=== PATIENT | female | born 1960 | race Caucasian/White ===

== ENCOUNTER 2016-09-25 12:52 | Emergency (ER) | payer OTHER ==
[~2016-09-25] VITALS: Ht 165.1 cm; Wt 62.0 kg
[~2016-09-25 12:52] MED LIST: CALCTAB5 PO; CHOL20005 PO; CIPR-255 PO; CITA10TA4 PO; CLON1TAB3 PO; ESOM20CA PO; GLUCTAB18 PO; MULT-506 PO; NAPR1TAB22 PO; ZIPR1CAP8 PO
[2016-09-25 12:57] VITALS: TEMP 37; Ht 165.1 cm; Wt 62.0 kg
[2016-09-25] MEDS ORDERED: DOXE25CA2 PO (13:41)
[2016-09-25] MEDS ORDERED: CALC-393 PO (13:41)
[2016-09-25 14:51] LABS: URINE APPEARANCE CLEAR (CLEAR); URINE BILIRUBIN NEG (NEG); URINE COLOR DK YELLOW; URINE NITRITE POS (NEG); URINE PH 6.5 (4.5-7.5); UROBILINOGEN NEG (NEG); ZZUR CULT IF INDIC CLEAN CATCH NO
[2016-09-25 15:20] LABS: MANUAL MICROSCOPIC REQUIRED? YES; REVIEW REQ? NO
[2016-09-25 15:26] LABS: URINE BACTERIA NEG (NEG); URINE RBC 0-4 /hpf (0-4); URINE WBC 0 /hpf (0-5)
[2016-09-25] MEDS ORDERED: CIPR250T3 PO (15:29)
[2016-09-25] MEDS ORDERED: PHEN-876 PO (15:29)
--- NOTE | 2016-09-25 15:29 | EMERGENCY ROOM VISIT NOTE ---
History First contact with patient: 13:50 Chief Complaint: URINARY SYMPTOMS Stated Complaint: URINARY SYMPTOMS Nursing Triage Summary: PT HERE WITH URINE RETENTION SINCE THIS AM PT STATES HAS HAD A UTI X 7 MOS. PT STATES HAS SIGNIFICANT HX OF URINARY PROBLEMS History of Present Illness The patient is a 56 year old female who presents to the Emergency Room via BLS with complaints of urinary retention. 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 She states that she has been in urinary retention since this morning. She has seen a urologist previously for her urinary problems. She reports she is currently taking Azo for her symptoms. She states she has been on Cipro previously for urinary tract infections. She does report a feeling of pressure in her bladder. She denies any back pain, fevers/chills, dysuria. She denies any vaginal discharge or bleeding. Review of Systems A complete 10-point Review of Systems was discussed with the patient, with pertinent positives and negatives listed in the History of Present Illness. All remaining Review of Systems questions can be considered negative unless otherwise specified. Past Medical/Surgical History Medical Problems: (1) Bipolar Disorder, Unspecified (2) Depressive Disorder Nec (3) Paranoid schizophrenia (4) Uterine cancer Family History No pertinent family history Social History Smoking Status: Never Smoker Alcohol Use: none Drug Use: none Marital Status: Housing Status: lives with significant other Occupation Status: unemployed Current/Historical Medications Scheduled Calcium Carbonate (Calcium), 600 MG PO BID Cholecalciferol (Vitamin D3), 2,000 INTER.UNIT PO DAILY Ciprofloxacin (Cipro), 250 MG PO BID Citalopram Hydrobromide (Citalopram Hydrobromide), 10 MG PO DAILY Clonazepam (Klonopin), 1 MG PO TID Doxepin Hcl (Sinequan), 50 MG PO HS Esomeprazole Magnesium (Nexium), 20 MG PO DAILY Glucosamine-Chondroitin (Osteo Bi-Flex Regular Str), 2 TABS PO DAILY Multivitamin (Multivitamin), 1 TAB PO DAILY Phenazopyridine HCl (Pyridium), 200 MG PO TID Ziprasidone Hcl (Geodon), 80 MG PO BID Scheduled PRN Naproxen Sodium (Aleve Arthritis), 440 TABS PO Q24H PRN for Pain Allergies Coded Allergies: Oxybutynin (Unverified Allergy, Unknown, UNKNOWN, 09/25/16) Physical Exam Vital Signs Date Time Temp Pulse Resp B/P Pulse Ox O2 Delivery O2 Flow Rate FiO2 09/25/16 15:39 85 16 155/92 95 Room Air 09/25/16 14:45 70 16 140/77 92 Room Air 09/25/16 12:57 37.0 76 16 138/90 94 Room Air Physical Exam VITALS: Vitals are noted on the nurse's note and reviewed by myself. Vital signs stable. GENERAL: This is a 56-year-old female, in no acute distress, nondiaphoretic, well-developed well-nourished. HEART: Regular rate and rhythm without murmurs gallops or rubs. LUNGS: Clear to auscultation bilaterally without wheezes, rales or rhonchi. ABDOMEN: Soft, nontender to palpation. MUSCULOSKELETAL: No CVA tenderness. NEURO: Patient was alert and oriented to person place and time. Medical Decision & Procedures Laboratory Results Test 09/25/16 13:50 Urine Color DK YELLOW Urine Appearance CLEAR (CLEAR) Urine pH 6.5 (4.5-7.5) Urine Specific [place] 1.000 (1.000-1.030) Urine Protein NEG (NEG) Urine Glucose (UA) NEG (NEG) Urine Ketones NEG (NEG) Urine Occult Blood NEG (NEG) Urine Nitrite POS (NEG) Urine Bilirubin NEG (NEG) Urine Urobilinogen NEG (NEG) Urine Leukocyte Esterase TRACE (NEG) Urine WBC (Auto) /hpf (0-5) Urine RBC (Auto) /hpf (0-4) Urine Hyaline Casts (Auto) /lpf (0-5) Urine Epithelial Cells (Auto) /lpf (0-5) Urine Bacteria (Auto) (NEG) Urine RBC 0-4 /hpf (0-4) Urine WBC 0 /hpf (0-5) Urine Epithelial Cells 0-5 /lpf (0-5) Urine Bacteria NEG (NEG) Medical Decision Differential diagnosis includes UTI, cystitis, pyelonephritis, among others. The patient was evaluated as above. The patient was able to provide a large urine sample despite subjective reports of urinary retention. The patient was bladder scanned after urinating and at that time, had less than 80 mL of urine within the bladder. I do not feel this represents true urinary retention. Her urine sample was difficult to interpret due to her taking Azo, but it did show positive nitrites and leukocyte esterase. The patient will be placed on Cipro pending the culture. She was instructed to follow-up with her primary care provider and urologist. The patient's case was reviewed with Dr. Ramos, ED attending physician, who agreed with my assessment and treatment plan. She verbalized understanding of my assessment and treatment plan was discharged home in good condition. Impression Primary Impression: Symptoms of urinary tract infection Departure Information Dispostion Home / Self-Care Condition GOOD Prescriptions Phenazopyridine HCl (Pyridium) 200 Mg Tab 200 MG PO TID for 3 Days, #9 TAB Prov: Tonie Dozier .TIBURCIO 09/25/16 Ciprofloxacin (CIPRO) 250 Mg Tab 250 MG PO BID for 7 Days, #14 TAB Prov: Tonie Dozier .TIBURCIO 09/25/16 Referrals Ethan Bagley M.D. ([facility]) (PCP) Patient Instructions My [facility] Additional Instructions You have been treated in the Emergency Department for a Urinary Tract Infection (UTI). You have been prescribed Cipro to be taken twice daily for 1 week. This is an antibiotic. All antibiotics have the potential to cause diarrhea. Stop this medication and contact a medical provider if you were to develop any significant adverse side effects including: wheezing, shortness of breath, passing out, vomiting, or a diffuse rash. Always take antibiotics as directed and COMPLETE the ENTIRE course regardless of the improvement of your symptoms. You have been prescribed Pyridium to be taken as prescribed. This medicine will help with the urinary symptoms that you have been experiencing. Be aware that Pyridium may turn your urine a red-orange or brown color. This effect is harmless. Drink plenty of water and stay well hydrated. As with any trip to the Emergency Department, you should follow-up with your Primary Care Provider from today's visit. Return to the emergency department if your symptoms persist despite treatment plan outlined above or if the following symptoms occur: increased fevers, chills , low back pain, nausea/vomiting, or blood in your urine.
[2016-09-25 15:39] VITALS: BP 155/92; PULSE 85; O2SAT 95
== END 2016-09-25 15:41 | disposition home or self-care (01) ==
LOC: EDBD 12:52 → C.EDA 12:53
DX: R39.9 Unspecified symptoms and signs involving the genitourinary system (principal); F31.9 Bipolar disorder, unspecified

== ENCOUNTER 2019-03-04 19:02 | Inpatient (IN) ==
[2019-03-04] MEDS ORDERED: SODIUM CHLORIDE 0.9% 1000ML 1,000 ML IV ONE (19:35)
[2019-03-04] MEDS ORDERED: METOCLOPRAMIDE HCL INJ 5 MG/ML 2 ML VIAL IV STA (19:37)
[2019-03-04] MEDS ORDERED: SODIUM CHLORIDE 0.9% 1000ML 1,000 ML IV SCH (19:45)
[2019-03-04 20:21] LABS: Basophils # (auto) 0.02 K/uL (0-0.2); Basophils % (auto) 0.2 %; Eosinophils # (auto) 0.08 K/uL (0-0.5); Eosinophils % (auto) 0.9 %; Hematocrit (blood only) 32.3 % (37-47); Hemoglobin 11.8 g/dL (12.0-16.0); Immature Granulocytes # (auto) 0.02 K/uL (0.00-0.02); Immature Granulocytes % (auto) 0.2 %; Lymphocytes # (auto) 1.93 K/uL (1.2-3.4); Lymphocytes % (auto) 20.8 %; Mean Corpuscular Hgb Conc 36.5 g/dL (32-36); Mean Corpuscular Volume 87.5 fL (80-100); Mean Platelet Volume 8.7 fL (7.4-10.4); Monocytes # (auto) 1.04 K/uL (0.11-0.59); Monocytes % (auto) 11.2 %; Neutrophils # (auto) 6.18 K/uL (1.4-6.5); Neutrophils % (auto) 66.7 %; Platelet Count 286 K/uL (130-400); RDW Coefficient of Variation 12.2 % (11.5-14.5); RDW Standard Deviation 39.1 fL (36.4-46.3); Red Blood Count 3.69 M/uL (4.2-5.4); White Blood Count 9.27 K/uL (4.8-10.8)
[2019-03-04 20:30] LABS: iSTAT Blood Urea Nitrogen < 3 mg/dl (7-18); iSTAT Carbon Dioxide 25 mEq/l (24-31); iSTAT Chloride 84 mEq/L (101-112); iSTAT Creatinine 0.4 mg/dl (0.6-1.3); iSTAT Glucose 111 mg/dl (70-99); iSTAT Hematocrit 33 % (37-47); iSTAT Hemoglobin 11.2 g/dl (12.0-16.0); iSTAT Ionized Calcium 1.24 mmol/l (1.12-1.32); iSTAT Potassium 2.9 mEq/L (3.3-5.0); iSTAT Sodium 124 mEq/L (135-144)
--- NOTE | 2019-03-04 20:31 | XRay Report ---
XR chest 1V portable CLINICAL HISTORY: Chest Pain COMPARISON STUDY: Chest CT October 02, 2010. FINDINGS: Lung volumes are normal. Lungs are clear. There is no pneumothorax or pleural effusion. Car diac size is normal. Mediastinal contours are normal. There is no evidence for pulmonary edema. IMPRESSION: No acute cardiopulmonary findings. Electronically signed by: Leonard Mcclellan M.D. 03/04/2019 8:29 PM
[2019-03-04 20:38] LABS: Appearance Urine Clear (Clear); Bilirubin Urine Negative (Negative); Blood Urine Negative (Negative); Color Urine Yellow; Glucose Urine UA Negative (Negative); Ketones Urine Negative (Negative); Leukocyte Esterase Urine 2+ (Negative); Nitrite Urine Positive (Negative); Protein Urine Negative (Negative); Specific Gravity Urine 1.009 (1.000-1.030); Urobilinogen Urine Negative (Negative); pH Urine 7.5 (4.5-7.5)
[2019-03-04 20:38] LABS: Alanine Aminotransferase 13 U/L (12-78); Albumin Globulin Ratio 1.1 (0.9-2); Albumin Level 3.4 gm/dl (3.4-5.0); Alkaline Phosphatase 93 U/L (45-117); Aspartate Aminotransferase 19 U/L (15-37); BUN Creatinine Ratio 7.3 (10-20); Bilirubin,Total 0.5 mg/dl (0.2-1); Blood Urea Nitrogen 3 mg/dl (7-18); Calcium 10.1 mg/dl (8.5-10.1); Carbon Dioxide 28 mmol/L (21-32); Chloride 88 mmol/L (98-107); Creatine Kinase 320 U/L (26-192); Creatine Kinase MB 3.7 ng/ml (0.5-3.6); Creatinine Clr Calc Pharmacy 113.2 ml/min; Est GFR (Non-African American) 110.4; Globulin 3.2 gm/dl (2.5-4.0); Glucose 102 mg/dl (70-99); Potassium 2.9 mmol/L (3.5-5.1); Sodium 124 mmol/L (136-145); Total Protein 6.6 gm/dl (6.4-8.2); Troponin I < 0.015 ng/ml (0-0.045)
[2019-03-04 20:57] LABS: Bacteria Urine 1+ (Negative); Epithelial Cell Urine 0-5 /lpf (0-5); RBC Urine 0-4 /hpf (0-4); WBC Urine 0-5 /hpf (0-5)
[2019-03-04] MEDS ORDERED: POTASSIUM CHLORIDE 20 MEQ TABCR PO STA (22:21)
[2019-03-04] MEDS ORDERED: IOVERSOL 100ml IV PRN (23:32)
[2019-03-04] MEDS: POTASSIUM CHLORIDE / WTR 10 MEQ/100 ML PLCT IV SCH (23:37)
--- NOTE | 2019-03-05 00:49 | Emergency Department Note ---
Entered by Mary Chaudhari acting as a scribe for Ye Ramos MD History of Present Illness General Chief complaint: Nausea Stated complaint: CAN'T KEEP FLUIDS DOWN,CAN'T EAT Time Seen by Provider: 03/04/19 19:31 Source: patient History of Present Illness Onset (ago): month(s) (couple) Location: mouth (nausea) Pain Consistency: + other (worsening) Exacerbated By: + other (eating and drinking) Associated symptoms: + nausea/vomiting and + other (constipation) The patient is a 59 year old F who presents to the Emergency Room with complaints of worsening nausea that started a couple of months ago. The patient states that she cannot eat and drink anything. She notes that if she eats and drinks something, she experiences vomiting. She notes that she is currently experiencing vomiting and constipation. She states that she was scheduled at [facility] for a colonoscopy but did not have it performed because she was hypokalemic and hyponatremic. She adds that she is currently on Linzess for her constipation. Home Medications Home Medications Medication Instructions Recorded Confirmed Type esomeprazole magnesium [Nexium] 20 mg PO DAILY 05/22/18 03/05/19 History ziprasidone HCl [Geodon] 80 mg PO BID 05/22/18 03/05/19 History sennosides [Laxative Pills] 25 mg PO TID 07/11/18 03/05/19 History acetaminophen [Tylenol Arthritis 650 mg PO Q8H PRN 07/26/18 03/05/19 History Pain] magnesium hydroxide [Milk of 15 ml PO DAILY PRN 07/26/18 03/05/19 History Magnesia] clonazepam 1 mg PO TID 08/21/18 03/05/19 History risperidone 0.5 mg PO DAILY PRN 08/21/18 03/05/19 History Linzess 290 mcg PO DAILY 03/05/19 03/05/19 History Allergies Allergy/AdvReac Type Severity Reaction Status Date / Time oxybutynin Allergy Unknown Unknown Verified 03/05/19 00:27 povidone-iodine Allergy Unknown Rash Verified 03/05/19 00:27 [From Betadine] soap [From Betadine] Allergy Unknown Rash Verified 03/05/19 00:27 Past Med/Surg History Medical History Paranoid schizophrenia (Chronic) Hemorrhoids (Acute) Uterine cancer (Resolved) Urinary retention (Acute) UTI (urinary tract infection) Family History Other Cancer Diabetes Gallbladder disease Heart disease Hypertension Kidney disease Kidney stone Lung disease Seizures Social History Preferred Language: Croatian Communication Ability: Effective Stone Mason Required: No Beliefs That Will Affect Care: Hinduism Hinduism Beliefs: Oriental Orthodox Current Living Situation: Alone Other Information That Helps Us Care for You: No Feels Safe at Home: Yes Safety Concerns: Feels Safe At This Time Smoking Status: Former smoker Cigarettes Per Day: Pt uses one "zyn" patch daily, states it is nicotine, not tobacco Hx Alcohol Use: No Hx Substance Use: No Review of Systems See HPI for pertinent positives & negatives. and A total of 10 systems reviewed and were otherwise negative Physical Exam Vital Signs Vital Signs - 24 hr 03/04/19 19:08 03/04/19 20:59 03/04/19 23:37 Temperature 37.1 C Temperature Source Oral Sepsis Recent Fever Within 48 Hours No Sepsis Action Taken by Nursing No Action Required Pulse Rate 118 H Pulse Rate [Apical] 95 H 72 Respiratory Rate 20 18 18 Respiratory Effort / Characteristics Non-Labored Spontaneous Respiratory Depth Normal Respiratory Pattern Regular Blood Pressure 112/76 Blood Pressure [Right Arm] 118/75 94/60 L Blood Pressure Mean 88 Blood Pressure Mean [Right Arm] 89 71 Blood Pressure Position Sitting Pulse Oximetry 96 99 98 Oxygen Delivery Method Room Air Room Air Room Air GENERAL: Awake, alert, cachectic -appearing, in no acute distress HENT: Normocephalic, atraumatic. Oropharynx unremarkable. EYES: Normal conjunctiva. Sclera non-icteric. NECK: Supple. No nuchal rigidity. FROM. No JVD. RESPIRATORY: Clear to auscultation. CARDIAC: Regular rate, normal rhythm. Extremities warm and well perfused. Pulses equal. ABDOMEN: Soft, non-distended. No tenderness to palpation. No rebound or guarding. No masses. RECTAL: Deferred. MUSCULOSKELETAL: Chest examination reveals no tenderness. The back is symmetrical on inspection without obvious abnormality. There is no CVA tenderness to palpation. No joint edema. LOWER EXTREMITIES: Calves are equal size bilaterally and non-tender. No edema. No discoloration. NEURO: Normal sensorium. No sensory or motor deficits noted. SKIN: No rash or jaundice noted. Course 1933: The patient was evaluated in room C11B. A complete history and physical exam was performed. 0022: I reviewed the patient's case with Dr. Chandler. He will evaluate the patient for further management. Consultations Consultation #1: I reviewed the patient's case with Dr. Chandler. He will evaluate the patient for further management. Time: 00:22 Administered Medications Clonazepam (Klonopin) 1 mg PO TID [facility] Stop: 04/04/19 08:59 Last Admin: 03/05/19 20:20 Dose: 1 mg Documented by: [id number] Admin: 03/05/19 13:51 Dose: 1 mg Documented by: [id number] Admin: 03/05/19 08:44 Dose: 1 mg Documented by: [id number] Docusate Sodium (Colace) 100 mg PO BID FAWAD Stop: 04/04/19 20:59 Last Admin: 03/05/19 20:18 Dose: 100 mg Documented by: [id number] Ceftriaxone Sodium 1,000 mg/ (Dextrose) 50 mls @ 100 mls/hr IV Q24H FAWAD; Protocol Stop: 03/15/19 03:59 Last Infusion: 03/06/19 05:14 Dose: 0 mls/hr Documented by: [id number] Admin: 03/06/19 04:45 Dose: 100 mls/hr Documented by: [id number] Infusion: 03/05/19 05:17 Dose: 0 mls/hr Documented by: [id number] Admin: 03/05/19 04:47 Dose: 100 mls/hr Documented by: [id number] Dextrose (D5w) 1,000 mls @ 80 mls/hr IV .[id number] FAWAD Stop: 03/15/19 03:00 Last Admin: 03/06/19 05:18 Dose: 80 mls/hr Documented by: [id number] Infusion: 03/06/19 05:14 Dose: 0 mls/hr Documented by: [id number] Admin: 03/05/19 18:34 Dose: 80 mls/hr Documented by: [id number] Magnesium Oxide (Mag-Ox) 400 mg PO QAM FAWAD Stop: 04/04/19 17:59 Last Admin: 03/05/19 18:42 Dose: 400 mg Documented by: [id number] Miscellaneous (Order Awaiting Action) 1 ea N/A QS FAWAD Stop: 04/04/19 07:59 Last Admin: 03/06/19 00:02 Dose: Not Given Documented by: [id number] Admin: 03/05/19 14:55 Dose: Not Given Documented by: [id number] Admin: 03/05/19 08:41 Dose: Not Given Documented by: [id number] Pantoprazole Sodium (Protonix) 40 mg PO DAILY FAWAD Stop: 04/04/19 08:59 Last Admin: 03/05/19 08:41 Dose: 40 mg Documented by: [id number] Ziprasidone (Geodon) 80 mg PO BID FAWAD Stop: 04/04/19 08:59 Last Admin: 03/05/19 20:18 Dose: 80 mg Documented by: [id number] Admin: 03/05/19 08:41 Dose: 80 mg Documented by: [id number] Discontinued Medications Bisacodyl (Dulcolax) 10 mg MO ONE ONE Stop: 03/05/19 11:37 Last Admin: 03/05/19 16:13 Dose: 10 mg Documented by: [id number] Docusate Sodium (Colace) 100 mg PO ONE ONE Stop: 03/05/19 10:16 Last Admin: 03/05/19 10:25 Dose: 100 mg Documented by: [id number] Sodium Chloride (Nss 1000ml) 1,000 mls @ 999 mls/hr IV .Q1H1M FAWAD Stop: 03/04/19 20:45 Last Infusion: 03/04/19 22:22 Dose: 0 mls/hr Documented by: [id number] Admin: 03/04/19 20:13 Dose: 999 mls/hr Documented by: [id number] Sodium Chloride (Nss 1000ml) 1,000 mls @ 999 mls/hr IV .Q1H1M ONE Stop: 03/04/19 20:35 Last Infusion: 03/04/19 22:22 Dose: 0 mls/hr Documented by: [id number] Admin: 03/04/19 20:13 Dose: 999 mls/hr Documented by: [id number] Potassium Chloride (K Mani / Wtr) 10 meq in 100 mls @ 100 mls/hr IV Q1H FAWAD Stop: 03/05/19 00:29 Last Infusion: 03/05/19 04:25 Dose: 0 mls/hr Documented by: [id number] Admin: 03/05/19 01:02 Dose: 100 mls/hr Documented by: [id number] Infusion: 03/05/19 00:37 Dose: 100 mls/hr Documented by: [id number] Admin: 03/04/19 23:37 Dose: 100 mls/hr Documented by: [id number] Potassium Chloride/Sodium Chloride (Normal Saline W/20 Meq Kcl) 20 meq in 1,000 mls @ 50 mls/hr IV .Q20H FAWAD Stop: 04/04/19 03:35 Last Infusion: 03/05/19 06:51 Dose: 0 mls/hr Documented by: [id number] Admin: 03/05/19 04:47 Dose: 50 mls/hr Documented by: [id number] Dextrose (D5w) 1,000 mls @ 150 mls/hr IV .Q6H40M FAWAD Stop: 04/04/19 06:44 Last Infusion: 03/05/19 18:25 Dose: 0 mls/hr Documented by: [id number] Infusion: 03/05/19 11:12 Dose: 0 mls/hr Documented by: [id number] Admin: 03/05/19 08:45 Dose: 150 mls/hr Documented by: [id number] Potassium Chloride (K Mani / Wtr) 10 meq in 100 mls @ 100 mls/hr IV Q1H FAWAD Stop: 03/05/19 13:59 Last Infusion: 03/05/19 14:56 Dose: 0 mls/hr Documented by: [id number] Admin: 03/05/19 13:48 Dose: 100 mls/hr Documented by: [id number] Infusion: 03/05/19 13:47 Dose: 0 mls/hr Documented by: [id number] Admin: 03/05/19 12:35 Dose: 100 mls/hr Documented by: [id number] Magnesium Sulfate/Dextrose (Magnesium Sulfate / D5w) 1 gm in 100 mls @ 100 mls/hr IV Q1H FAWAD Stop: 03/05/19 19:49 Last Infusion: 03/05/19 20:28 Dose: 0 mls/hr Documented by: [id number] Admin: 03/05/19 19:37 Dose: 100 mls/hr Documented by: [id number] Infusion: 03/05/19 19:26 Dose: 100 mls/hr Documented by: [id number] Admin: 03/05/19 18:26 Dose: 100 mls/hr Documented by: [id number] Ioversol (Optiray 320 100ml) 100 ml IV ONCE PRN PRN Reason: Interaction Checking Stop: 03/08/19 23:31 Last Admin: 03/04/19 23:33 Dose: 93 ml Documented by: [id number] Magnesium Hydroxide (Milk Of Magnesia) 30 ml PO NOW ONE Stop: 03/05/19 10:07 Last Admin: 03/05/19 10:25 Dose: 30 ml Documented by: [id number] Metoclopramide HCl (Reglan) 10 mg IV NOW STA Stop: 03/04/19 19:38 Last Admin: 03/04/19 20:13 Dose: 10 mg Documented by: [id number] Potassium Chloride (Klor-Con M20) 40 meq PO NOW STA Stop: 03/04/19 22:22 Last Admin: 03/04/19 23:37 Dose: 40 meq Documented by: [id number] Potassium Chloride (Klor-Con M10) 20 meq PO NOW STA Stop: 03/05/19 06:42 Last Admin: 03/05/19 08:41 Dose: 20 meq Documented by: [id number] Medical Decision Making Differential Diagnosis Differential diagnosis includes: appendicitis, diverticulitis, PUD, biliary pathology, UTI, pancreatitis, obstruction, mesenteric ischemia, aortic pathology, infections, inflammatory bowel disease, renal colic, as well as others were entertained. Medical Records Attestation: I reviewed the patient's medical records. Home Medications Current Medication List: was personally reviewed by me Laboratory Data Attestation: I reviewed the patient's lab results. Result diagrams: 03/06/19 05:38 03/05/19 16:47 Lab Results 03/04/19 03/04/19 03/04/19 Range/Units 19:55 19:55 20:02 WBC 9.27 (4.8-10.8) K/uL RBC 3.69 L (4.2-5.4) M/uL Hgb 11.8 L (12.0-16.0) g/dL POC Hgb 11.2 L (12.0-16.0) g/dl Hct 32.3 L (37-47) % POC Hct 33 L (37-47) % MCV 87.5 (80-100) fL MCH 32.0 (25-34) pg MCHC 36.5 H (32-36) g/dL RDW Std Deviation 39.1 (36.4-46.3) fL RDW Coeff of Mary 12.2 (11.5-14.5) % Plt Count 286 (130-400) K/uL MPV 8.7 (7.4-10.4) fL Immature Gran % (Auto) 0.2 % Neut % (Auto) 66.7 % Lymph % (Auto) 20.8 % Rhea % (Auto) 11.2 % Eos % (Auto) 0.9 % Baso % (Auto) 0.2 % Immature Gran # (Auto) 0.02 (0.00-0.02) K/uL Neut # (Auto) 6.18 (1.4-6.5) K/uL Lymph # (Auto) 1.93 (1.2-3.4) K/uL Rhea # (Auto) 1.04 H (0.11-0.59) K/uL Eos # (Auto) 0.08 (0-0.5) K/uL Baso # (Auto) 0.02 (0-0.2) K/uL POC Sodium 124 L (135-144) mEq/L Sodium 124 L (136-145) mmol/L POC Potassium 2.9 L (3.3-5.0) mEq/L Potassium 2.9 L (3.5-5.1) mmol/L POC Chloride 84 L (101-112) mEq/L Chloride 88 L (98-107) mmol/L Carbon Dioxide 28 (21-32) mmol/L POC Total CO2 25 (24-31) mEq/l Anion Gap 8.0 (3-11) POC Anion Gap 20.0 (16-25) mmol/L POC BUN < 3 L (7-18) mg/dl BUN 3 L (7-18) mg/dl Creatinine 0.45 L (0.6-1.2) mg/dl POC Creatinine 0.4 L (0.6-1.3) mg/dl Est Cr Clr Drug Dosing 113.2 ml/min Est GFR ( Amer) 128.0 Est GFR (Non-Af Amer) 110.4 BUN/Creatinine Ratio 7.3 L (10-20) Glucose 102 H (70-99) mg/dl POC Glucose (other) 111 H (70-99) mg/dl Calcium 10.1 (8.5-10.1) mg/dl POC Ioniz Calcium Nicho 1.24 (1.12-1.32) mmol/l Total Bilirubin 0.5 (0.2-1) mg/dl AST 19 (15-37) U/L ALT 13 (12-78) U/L Alkaline Phosphatase 93 (45-117) U/L Total Creatine Kinase 320 H (26-192) U/L CK-MB (CK-2) 3.7 H (0.5-3.6) ng/ml CK/CKMB % Calc 1.2 (0-3.0) Troponin I < 0.015 (0-0.045) ng/ml Total Protein 6.6 (6.4-8.2) gm/dl Albumin 3.4 (3.4-5.0) gm/dl Globulin 3.2 (2.5-4.0) gm/dl Albumin/Globulin Ratio 1.1 (0.9-2) Lipase 49 L (73-393) U/L Urine Color Urine Appearance (Clear) Urine pH (4.5-7.5) Ur Specific [place] (1.000-1.030) Urine Protein (Negative) Urine Glucose (UA) (Negative) Urine Ketones (Negative) Urine Blood (Negative) Urine Nitrite (Negative) Urine Bilirubin (Negative) Urine Urobilinogen (Negative) Ur Leukocyte Esterase (Negative) Urine RBC (0-4) /hpf Urine WBC (0-5) /hpf Ur Epithelial Cells (0-5) /lpf Urine Bacteria (Negative) Urine Osmolality (500-800) mOsm/kg Ur Random Sodium mmol/L 03/04/19 03/04/19 03/04/19 Range/Units 20:23 20:23 20:23 WBC (4.8-10.8) K/uL RBC (4.2-5.4) M/uL Hgb (12.0-16.0) g/dL POC Hgb (12.0-16.0) g/dl Hct (37-47) % POC Hct (37-47) % MCV (80-100) fL MCH (25-34) pg MCHC (32-36) g/dL RDW Std Deviation (36.4-46.3) fL RDW Coeff of Mary (11.5-14.5) % Plt Count (130-400) K/uL MPV (7.4-10.4) fL Immature Gran % (Auto) % Neut % (Auto) % Lymph % (Auto) % Rhea % (Auto) % Eos % (Auto) % Baso % (Auto) % Immature Gran # (Auto) (0.00-0.02) K/uL Neut # (Auto) (1.4-6.5) K/uL Lymph # (Auto) (1.2-3.4) K/uL Rhea # (Auto) (0.11-0.59) K/uL Eos # (Auto) (0-0.5) K/uL Baso # (Auto) (0-0.2) K/uL POC Sodium (135-144) mEq/L Sodium (136-145) mmol/L POC Potassium (3.3-5.0) mEq/L Potassium (3.5-5.1) mmol/L POC Chloride (101-112) mEq/L Chloride (98-107) mmol/L Carbon Dioxide (21-32) mmol/L POC Total CO2 (24-31) mEq/l Anion Gap (3-11) POC Anion Gap (16-25) mmol/L POC BUN (7-18) mg/dl BUN (7-18) mg/dl Creatinine (0.6-1.2) mg/dl POC Creatinine (0.6-1.3) mg/dl Est Cr Clr Drug Dosing ml/min Est GFR ( Amer) Est GFR (Non-Af Amer) BUN/Creatinine Ratio (10-20) Glucose (70-99) mg/dl POC Glucose (other) (70-99) mg/dl Calcium (8.5-10.1) mg/dl POC Ioniz Calcium Nicho (1.12-1.32) mmol/l Total Bilirubin (0.2-1) mg/dl AST (15-37) U/L ALT (12-78) U/L Alkaline Phosphatase (45-117) U/L Total Creatine Kinase (26-192) U/L CK-MB (CK-2) (0.5-3.6) ng/ml CK/CKMB % Calc (0-3.0) Troponin I (0-0.045) ng/ml Total Protein (6.4-8.2) gm/dl Albumin (3.4-5.0) gm/dl Globulin (2.5-4.0) gm/dl Albumin/Globulin Ratio (0.9-2) Lipase (73-393) U/L Urine Color Yellow Urine Appearance Clear (Clear) Urine pH 7.5 (4.5-7.5) Ur Specific [place] 1.009 (1.000-1.030) Urine Protein Negative (Negative) Urine Glucose (UA) Negative (Negative) Urine Ketones Negative (Negative) Urine Blood Negative (Negative) Urine Nitrite Positive A (Negative) Urine Bilirubin Negative (Negative) Urine Urobilinogen Negative (Negative) Ur Leukocyte Esterase 2+ H (Negative) Urine RBC 0-4 (0-4) /hpf Urine WBC 0-5 (0-5) /hpf Ur Epithelial Cells 0-5 (0-5) /lpf Urine Bacteria 1+ H (Negative) Urine Osmolality 23 L (500-800) mOsm/kg Ur Random Sodium 8 mmol/L Imaging Data Radiologist's Impression: Radiology results as stated below per my review and the radiologist's interpretation: XR chest 1V portable CLINICAL HISTORY: Chest Pain COMPARISON STUDY: Chest CT October 02, 2010. FINDINGS: Lung volumes are normal. Lungs are clear. There is no pneumothorax or pleural effusion. Cardiac size is normal. Mediastinal contours are normal. There is no evidence for pulmonary edema. IMPRESSION: No acute cardiopulmonary findings. Electronically signed by: Leonard Mcclellan M.D. 03/04/2019 8:[address] HEAD: Comparison 10/02/2010 Off axis imaging No intracranial hemorrhage, mass effect or CT evidence of acute infarct Ventricles are within limits and midline Visualized paranasal sinuses, mastoids and orbits appear within limits CT ABDOMEN & PELVIS With Contrast: Comparison 11/19/2015 Dependent basilar atelectasis Abdominal solid organs, gallbladder and abdominal aorta appears within limits Gaseous prominence of the colon without evidence of wall thickening Oral contrast to the transverse colon No free air or free fluid Normal caliber appendix without secondary signs Montes catheter within the bladder Blood Pressure Blood Pressure Findings: Low blood pressure Blood Pressure Disposition: further management by hospitalist VLAD Narrative This is a 59-year-old female who presents to the emergency department complaining of not keeping anything down. The patient was found to be hyponatremic along with hypokalemic. Upon further questioning of the patient and I am concerned that the patient is drinking large amounts of water and causing her hyponatremia. She was given a saline bolus here in the emergency department along with potassium. I did discuss the case with the hospitalist who agreed to admit the patient. Patient was in agreement with the treatment plan. Impression & Plan Electrolyte abnormality, Hyponatremia, Hypokalemia due to inadequate potassium intake Discharge Plan Visit Data *Final* Discharge Date/Time: 03/05/19 01:38 Chief Complaint: Nausea Stated Complaint: CAN'T KEEP FLUIDS DOWN,CAN'T EAT ED Provider: Ye Ramos Discharge Problem: Electrolyte abnormality, Hyponatremia, Hypokalemia due to inadequate potassium intake Patient Disposition: Admitted As Inpatient Discharge Instructions Interventions: ED Discharge Assessment Last Done: 03/05/19 01:38 The scribe's documentation has been prepared under my direction and personally reviewed by me in its entirety. I confirm that the note above accurately reflects all work, treatment, procedures, and medical decision making performed by me.
[2019-03-05] MEDS: POTASSIUM CHLORIDE / WTR 10 MEQ/100 ML PLCT IV SCH ×3 (01:02→13:48)
--- NOTE | 2019-03-05 02:36 | History and Physical Report ---
DATE OF ADMISSION: 03/05/2019 CHIEF COMPLAINT: Nausea. HISTORY OF PRESENT ILLNESS: This is a 59-year-old female with past medical history significant for paranoid schizophrenia, chronic urinary retention, on chronic Montes catheter, chronic idiopathic constipation. The patient is having ongoing constipation for last several months, on a stool softener, which helps to move her bowels,.She is having loss of weight. She states because of constipation causing bloating and poor appetite, she has lost about 30 pounds in the last 6 months, recently seen in Gastroenterology and started on Linzess and she is supposed to get colonoscopy and esophagogastroduodenoscopy as per the patient yesterday, but it was held because of electrolyte abnormalities and today that is 03/04/2019 she was having lot of nausea and vomiting so she called her ex- and she was brought in here and found to have hypokalemia and hyponatremia. Currently, she is resting comfortably. She states that she is still nauseous, complaining of some abdominal discomfort. She moved good bowel movement today and also had a bowel movement yesterday, but she states the bowels are moving only when she is taking laxatives. She did not have a bowel prep for colonoscopy because of abnormal laboratories. Lives alone. She can drive by herself. She cooks her own food. Denies any chest pain or shortness of breath. No headache. No blurred vision. No earache. No runny nose. No sore throat, but lately she has some difficulty swallowing. No cough. No fevers. She has a Montes catheter. No swelling in the legs. No rash. She states she drinks about 8-10 glasses of water every day and also she drinks about 8 cans of soda every day because she feels thirsty. She is taking her medications regularly. ALLERGIES: OXYBUTYNIN. PAST MEDICAL HISTORY: As mentioned above. PAST SURGICAL HISTORY: Colonoscopies with cautery, esophagogastroduodenoscopy, internal hemorrhoidectomy, laparoscopic biopsy, total abdominal hysterectomy with removal of tubes for recurrent ovarian cancer 20 years ago. MEDICATIONS: The patient is on MiraLax daily, Linzess 290 mcg daily, risperidone 0.5 mg p.o. daily p.r.n., Nexium daily, Klonopin 1 mg p.o. t.i.d. and Geodon 80 mg p.o. b.i.d. FAMILY HISTORY: Significant for mother had mental disorder. Paternal grandfather had cancer. Paternal grandmother has breast cancer. Aunt has breast cancer. SOCIAL HISTORY: . Lives alone. Former smoker, quit in 2011, smoked a half a pack a day for 38 years. No alcohol use. No drug use. REVIEW OF SYMPTOMS: As per HPI. Rest of review of symptoms negative. PHYSICAL EXAMINATION: GENERAL: The patient is thin and frail, not in acute distress. VITAL SIGNS: Temperature 37.1, pulse 72, respiratory rate 18, blood pressure 94/60 and oxygen 98% on room air. HEENT: No pallor. No icterus. Pupils are equal, round and reactive to light. NECK: No JVD. No neck masses. No carotid bruits. CARDIOVASCULAR: S1, S2 heard. Regular rate and rhythm. No murmur. No gallop. RESPIRATORY SYSTEM: Normal AP diameter. No accessory muscle use. No wheezing. No crackles. ABDOMEN: Soft. Bowel sounds hyperactive. Mild diffuse discomfort. No guarding. No rigidity. No distention. CENTRAL NERVOUS SYSTEM: Cranial nerves II through XII grossly intact. Nonfocal. EXTREMITIES: No edema. No erythema. LABORATORY DATA: WBC 9.2, hemoglobin 11.8, hematocrit 32.3 and platelets 286. Sodium 124, potassium 2.9, chloride 88, bicarbonate 28, BUN 3, creatinine 0.4, serum glucose 102, calcium 10.1, total bilirubin 0.5, AST 19, ALT 13, alkaline phosphatase 93, total creatinine kinase 320 and CK-MB 0.7. Troponin I less than 0.015. Lipase 449. Urinalysis positive for nitrite and leukocyte esterase. CT abdomen and pelvis, unofficial report, unremarkable. Chest x-ray, no acute cardiopulmonary findings. Electrocardiogram, normal sinus rhythm with rate of 91, no acute ST changes seen and no QT prolongation. ASSESSMENT AND PLAN: This is a 59-year-old female who presents with nausea. 1. Nausea, mostly secondary to hyponatremia. CT of the abdomen and pelvis unofficial report was unremarkable, possibly also from ongoing constipation. Antiemetics p.r.n. 2. Hyponatremia, sodium of 124, outpatient laboratories showed sodium is in 120 range. She seems to be drinking a lot of fluids. She drinks about 8-10 glasses of water and also 8 cans of soda every day. Possible polydipsia. We will check urine osmolality, serum osmolality and urine sodium. We will put on fluid restriction of 2 liters a day and we will place on I.V. normal saline 50 mL per hour. Check basic metabolic profile q. 6 hours and consult Nephrology for further recommendations. We will monitor sodium closely for correction of not more than 6 mmol/L a day. 4. Hypokalemia. Potassium of 2.9. We will replace and follow the laboratories. 5. Ongoing constipation, weight loss and bloating. Supposed to get esophagogastroduodenoscopy and colonoscopy by Gastroenterology, recently started on Linzess. We will follow up CT of abdomen and pelvis. Continue on stool softeners and consult Gastroenterology for further recommendations. 6. Possible urinary tract infection. Follow urine cultures. Place on Rocephin. 7. History of paranoid schizophrenia. Continue Geodon and risperidone p.r.n. and Klonopin t.i.d. 8. Chronic urinary retention. Continue Montes catheter. Follows with Urology. 9. Gastroesophageal reflux disease. On proton pump inhibitor. 10. History of recurrent ovarian cancer 20 years ago, status post total abdominal hysterectomy with removal of tubes. 11. Deep venous thrombosis prophylaxis, sequential compression devices. DISPOSITION: Admit to tele floor. Expect to discharge home and follow with family doctor. Level 1 full code as per my discussion with the patient. Morning labs showed NA 135. Changed fluids to d5w@150ml/hr. await nephrology inputs. CHIQUIS
[2019-03-05] MEDS ORDERED: NITROGLYCERIN SL 0.4 MG/TAB TAB SL PRN (03:36)
[2019-03-05] MEDS ORDERED: ONDANSETRON INJ 2 MG/ML 2 ML VIAL IV PRN (03:36)
[2019-03-05] MEDS ORDERED: POLYETHYLENE (MIRALAX) 17 GM PACK PO PRN (03:36)
[2019-03-05] MEDS ORDERED: ACETAMINOPHEN 325 MG TAB PO PRN (03:36)
[2019-03-05] MEDS ORDERED: risperiDONE ODT 0.5 MG SOLTAB PO PRN (03:36)
[2019-03-05] MEDS ORDERED: NSS + 20MEQ KCL 20 MEQ/1,000 ML BAG IV SCH (03:36)
[2019-03-05] MEDS ORDERED: NON-FORMULARY MEDICATION (Acetaminophen [Tylenol Arthritis Pain] 650 MG) PO PRN (03:36)
[2019-03-05] MEDS: cefTRIAXone SODIUM 1,000 MG in DEXTROSE 5% 50 ML IV SCH (04:47)
[2019-03-05 05:38] LABS: Basophils # (auto) 0.02 K/uL (0-0.2); Basophils % (auto) 0.4 %; Eosinophils # (auto) 0.12 K/uL (0-0.5); Eosinophils % (auto) 2.6 %; Hematocrit (blood only) 32.5 % (37-47); Hemoglobin 11.6 g/dL (12.0-16.0); Immature Granulocytes # (auto) 0.01 K/uL (0.00-0.02); Immature Granulocytes % (auto) 0.2 %; Lymphocytes # (auto) 1.95 K/uL (1.2-3.4); Mean Corpuscular Hgb Conc 35.7 g/dL (32-36); Mean Corpuscular Volume 88.8 fL (80-100); Mean Platelet Volume 8.4 fL (7.4-10.4); Monocytes # (auto) 0.78 K/uL (0.11-0.59); Monocytes % (auto) 17.2 %; Neutrophils # (auto) 1.66 K/uL (1.4-6.5); Neutrophils % (auto) 36.6 %; Platelet Count 257 K/uL (130-400); RDW Coefficient of Variation 12.4 % (11.5-14.5); Red Blood Count 3.66 M/uL (4.2-5.4); White Blood Count 4.54 K/uL (4.8-10.8)
[2019-03-05 06:18] LABS: BUN Creatinine Ratio 2.6 (10-20); Calcium 8.8 mg/dl (8.5-10.1); Creatinine Clr Calc Pharmacy 123.8 ml/min; Est GFR (African American) 130.9; Potassium 3.6 mmol/L (3.5-5.1)
--- NOTE | 2019-03-05 06:37 | CT Scan Report ---
CT head/brain wo con CLINICAL HISTORY: Acute change in mental status COMPARISON STUDY: No previous studies for comparison. TECHNIQUE: Axial CT of the brain is performed from the vertex to the skull base. IV contrast was not administered for this examination. A dose lowering technique was utilized adhering to the principles of ALARA. CT DOSE: 537.48 mGy.cm FINDINGS: No intra or extra-axial mass lesions are visualized. There is no CT evidence of acute cortical infarc tion. There is no evidence of midline shift. There is no acute hemorrhage. No calvarial fractures ar e visualized. There are minor white matter hypodensities likely on a small vessel basis. There is no evidence of pathologic ventricular dilatation. There is no evidence of acute sinusitis IMPRESSION: No acute intracranial findings Electronically signed by: Mendoza Coley M.D. 03/05/2019 6:36 AM
[2019-03-05] MEDS ORDERED: POTASSIUM CHLORIDE 10 MEQ TABCR PO STA (06:41)
--- NOTE | 2019-03-05 06:44 | CT Scan Report ---
CT abd pelvis oral and IV con CT DOSE: 262.10 mGy.cm HISTORY: Pain Pt c/o diffuse abd pain TECHNIQUE: Multiaxial CT images of the abdomen and pelvis were performed following the use of intrave nous and oral contrast. A dose lowering technique was utilized adhering to the principles of ALARA. COMPARISON STUDY: 11/19/2015 FINDINGS: Minimal dependent basilar atelectasis. Liver spleen and pancreas are unremarkable. Kidneys negative for hydronephrosis. Extrarenal pelvis ri ght kidney unchanged from the prior study. Air-filled colon consistent with mild nonobstructive colonic ileus. Montes catheter is present within a collapsed bladder. IMPRESSION: 1. Mild nonobstructive colonic ileus. 2. Montes catheter in position. 3. Otherwise negative abdomen and pelvis. The above report was generated using voice recognition software. It may contain grammatical, syntax or spelling errors. Electronically signed by: Gomez Rahman M.D. 03/05/2019 6:43 AM
[2019-03-05] MEDS ORDERED: DEXTROSE 5% 1,000 ML IV SCH (06:45)
[2019-03-05] MEDS: LINZESS~ORDER AWAITING ACTION SCH ×2 (08:41→14:55)
[2019-03-05] MEDS: PANTOprazole 40 MG TAB PO SCH (08:41)
[2019-03-05] MEDS: ZIPRASIDONE HCL 80 MG CAP PO SCH ×2 (08:41→20:18)
[2019-03-05] MEDS: clonazePAM 1 MG TAB PO SCH ×3 (08:44→20:20)
[2019-03-05] MEDS ORDERED: MAGNESIUM HYDROXIDE SUSP 30 ML UDC PO PRN ×2 (10:06→10:23)
[2019-03-05] MEDS ORDERED: MAGNESIUM HYDROXIDE SUSP 30 ML UDC PO ONE (10:06)
[2019-03-05] MEDS ORDERED: DOCUSATE SODIUM 100 MG CAP PO ONE ×2 (10:15→10:23)
--- NOTE | 2019-03-05 11:00 | Gastrointestinal Consultation ---
Date of Consultation March 05, 2019 Assessment & Plan (1) Electrolyte abnormality: (2) Weight loss: (3) Ileus: Pt is a 59 y/o female currently admitted for electrolyte abnormalities, concerning for polydipsia symptoms seen for nausea, constipation and weight loss. Previously seen in GI clinic by Dr. Porter, started on Linzess for chronic constipation suspect from likely psych meds anticholinergic effects and had success w daily BM. However yesterday CT abd/pelvis w contrast showed non obstructive ileus. - Linzess not available in hospital. Will start bowel regimen: Colace 100mg BID, Milk of Mg 30mL now and then q6hrs prn constipation, Dulcolax 10mg [place] x 1 now. - KUB tomorrow - CL diet ok for now. Keep NPO and consider NGT placement if starts to have any n/v - Defer to primary team for electrolyte management. - Plan on rescheduling endoscopies once her current problems are resolved Supervising Physician Co-Signing Physician Notes I have performed a history and physical examination of this patient and reviewed the electronic medical record. Specifically, on physical examination there are active bowel sounds, abdomen is soft and non tender. I have discussed the case with OUMAR Scott. The above note reflects my findings, conclusions, and recommendations. William Martinez MD History of Present Illness Reason for Consultation: Nausea, constipation, weight loss Requesting Physician: Dr. Pedro Maciel Attending Physician: Dr. William Martinez History of Present Illness Pt is a 59 y/o female w PMHx as noted below who presented to ED w c/o N/V, found to have hypokalemia, hyponatremia on presentation. Concerning symptoms of polydypsia as she's been drinking large amt of fluid. Nephrology consulted, electrolytes corrected. GI consulted for symptoms of nausea, constipation and weight loss of about 40 lbs in last 7 months (noted in EPIC chart). She in fact had been evaluated by Dr. Porter in GI clinic for these. Pt reports she's tried several agents such as Miralax, Milk of Mg, Colace to help w constipation but not helpful. Suspected anticholinergic effects of psych meds contributing to her constipation. She denies any dysphagia, odynophagia, n/v but said cannot eat much as she feels full all the time because of her constipation. She was started on Linzess 290mcg and she reports having good success w daily BM w/o rectal bleeding w this med. She was scheduled for EGD/Colonoscopy but procedures cancelled due to her electrolyte imbalances. Hx of EGD in 2008: reflux esophagitis, monilial esophagitis Hx of Colonoscopies 2008, 2011, 2013, 2014: melanosis coli, hemorrhoids, tourtous colon, hyperplastic polyps CT abd/pelvis w contrast yesterday w signs of non obstructive colonic ileus Allergies Allergy/AdvReac Type Severity Reaction Status Date / Time oxybutynin Allergy Unknown Unknown Verified 03/05/19 00:27 povidone-iodine Allergy Unknown Rash Verified 03/05/19 00:27 [From Betadine] soap [From Betadine] Allergy Unknown Rash Verified 03/05/19 00:27 Home Medications Home Medications Medication Instructions Recorded Confirmed Type esomeprazole magnesium [Nexium] 20 mg PO DAILY 05/22/18 03/05/19 History ziprasidone HCl [Geodon] 80 mg PO BID 05/22/18 03/05/19 History sennosides [Laxative Pills] 25 mg PO TID 07/11/18 03/05/19 History acetaminophen [Tylenol Arthritis 650 mg PO Q8H PRN 07/26/18 03/05/19 History Pain] magnesium hydroxide [Milk of 15 ml PO DAILY PRN 07/26/18 03/05/19 History Magnesia] clonazepam 1 mg PO TID 08/21/18 03/05/19 History risperidone 0.5 mg PO DAILY PRN 08/21/18 03/05/19 History Linzess 290 mcg PO DAILY 03/05/19 03/05/19 History Patient History Medical History Paranoid schizophrenia (Chronic) Hemorrhoids (Acute) Uterine cancer (Resolved) Urinary retention (Acute) UTI (urinary tract infection) Family History Other Cancer Diabetes Gallbladder disease Heart disease Hypertension Kidney disease Kidney stone Lung disease Seizures Social History Preferred Language: Cook Islander Communication Ability: Effective Graphic Design Intern Required: No Beliefs That Will Affect Care: Samaritan Samaritan Beliefs: Anglican Current Living Situation: Alone Other Information That Helps Us Care for You: No Feels Safe at Home: Yes Safety Concerns: Feels Safe At This Time Smoking Status: Former smoker Cigarettes Per Day: Pt uses one "zyn" patch daily, states it is nicotine, not tobacco Hx Alcohol Use: No Hx Substance Use: No Review of Systems Review of Systems: All systems reviewed & are unremarkable except as noted in HPI & below Physical Exam Constitutional: WD/WN, vitals as above well groomed, cooperative and comfortable Eyes: PERRL, conjunctivae normal, anicteric sclerae ENMT: external ear and nose normal, oropharynx normal Respiratory: normal respiratory effort, lungs clear to auscultation Cardiovascular: RRR, no murmur, no edema Gastrointestinal (Abdomen): Inspection/Auscultation: + abdomen distended and normal bowel sounds Percussion/Palpation: abdomen nontender Skin: no rashes, warm and dry no jaundice Neurologic: Motor/Sensory: no asterixis Psychiatric: Orientation: alert and oriented x 3 Affect: + flat affect Lymphatic: no lymphedema Results & Data Vital Signs (Past 12 Hours) Vital Signs Temp Pulse Pulse Pulse Resp BP BP 03/05/19 07:14 88 03/05/19 07:10 37.0 C 79 16 104/68 03/05/19 02:00 93 H 03/05/19 01:50 37.0 C 92 H 16 108/76 03/05/19 01:38 92 H 18 111/54 L 03/04/19 23:37 72 18 94/60 L Pulse Ox 03/05/19 07:14 03/05/19 07:10 96 03/05/19 02:00 03/05/19 01:50 95 03/05/19 01:38 03/04/19 23:37 98
[2019-03-05 11:20] LABS: BUN Creatinine Ratio 2.2 (10-20); Calcium 8.8 mg/dl (8.5-10.1); Creatinine Clr Calc Pharmacy 110.6 ml/min; Est GFR (African American) 126.2; Est GFR (Non-African American) 108.9; Potassium 3.3 mmol/L (3.5-5.1)
[2019-03-05] MEDS: BISACODYL 10 MG SUPP PR ONE ×2 (12:20→16:13)
--- NOTE | 2019-03-05 16:33 | Hospitalist Progress Note ---
Date of Service March 05, 2019 Assessment & Plan (1) Hyponatremia: This is a 59-year-old female with past medical history significant for paranoid schizophrenia, chronic urinary retention, on chronic Montes catheter, chronic idiopathic constipation. Hyponatremia -presented to the hospital on 03/04/19 because of nausea and vomiting -found to have hyponatremia and hypokalemia -serum sodium on admission as 124 -was corrected to 135 in AM of 03/05/19 with normal saline and then received some D5 IV fluids to prevent excessive correction and serum sodium and follow up sodium as 134 -hyponatremia is presumed to be from inadequate oral intake but given history of schizophrenia, will place on a fluid restriction to prevent excessive free water intake from possible psychogenic polydipsia Hypokalemia -serum sodium is 2.4 on admission -after potassium supplementation, the last checked potassium level is 3.3, continue to trend -check magnesium level History of paranoid schizophrenia - Continue ziprassidone (Geodon) BID and risperidone p.r.n. and Klonopin t.i.d. Ileus -admission CT : Mild nonobstructive colonic ileus. - Linzess not available in hospital. gastroenterology service start bowel regimen: Colace 100mg BID, Milk of Mg 30mL now and then q6hrs prn constipation, Dulcolax 10mg [place] x 1 now. - monitor for bowel movements -check TSH - KUB ordered for 03/06/19 by gastroenterology team Chronic urinary retention -Continue Montes catheter possible urinary tract infection -urine with gram negative bacilli -already on ceftriaxone, continue and await speciation Gastroesophageal reflux disease -On proton pump inhibitor. History of recurrent ovarian cancer 20 years ago, status post total abdominal hysterectomy with removal of tubes. Deep venous thrombosis prophylaxis, sequential compression devices. Subjective Patient is not in acute distress. no chest pain. no abdomen pain. breathing comfortably on room air. am concerned that patient is not a good historian. nurse on shift has not reported that patient has bowl movement. Physical Exam Constitutional: WD/WN, vitals as above Eyes: PERRL, conjunctivae normal, anicteric sclerae EOM intact bilaterally ENMT: external ear and nose normal, oropharynx normal Neck: trachea midline, no thyromegaly normal visual inspection Respiratory: normal respiratory effort, lungs clear to auscultation Cardiovascular: Rate/Rhythm: regular rate and regular rhythm Gastrointestinal (Abdomen): Inspection/Auscultation: abdomen normal to inspection Percussion/Palpation: abdomen soft Musculoskeletal: Head/Neck/Chest: normocephalic and head atraumatic Neurologic: PERRL, EOMI, accommodation nl, no face palsy, no dysarthria CN's II-XI intact bilaterally Psychiatric: Orientation: alert and cooperative Results & Data Vital Signs (Past 12 Hours) Vital Signs Temp Pulse Pulse Resp BP Pulse Ox 03/05/19 15:03 37.3 C 87 20 120/83 98 03/05/19 12:05 36.6 C 82 16 123/82 97 03/05/19 07:14 88 03/05/19 07:10 37.0 C 79 16 104/68 96
[2019-03-05 17:45] LABS: Blood Urea Nitrogen < 1 mg/dl (7-18); Calcium 8.9 mg/dl (8.5-10.1); Carbon Dioxide 28 mmol/L (21-32); Chloride 102 mmol/L (98-107); Creatinine Clr Calc Pharmacy 123.8 ml/min; Est GFR (African American) 130.9; Glucose 96 mg/dl (70-99); Magnesium 1.7 mg/dl (1.8-2.4); Potassium 3.5 mmol/L (3.5-5.1); Sodium 135 mmol/L (136-145)
[2019-03-05] MEDS: MAGNESIUM SULFATE / D5W 1 GM/100 ML BAG IV SCH ×2 (18:26→19:37)
[2019-03-05] MEDS: DEXTROSE 5% 1,000 ML IV SCH (18:34)
[2019-03-05] MEDS: MAGNESIUM OXIDE 400 MG TAB PO SCH (18:42)
[2019-03-05] MEDS: DOCUSATE SODIUM 100 MG CAP PO SCH (20:18)
--- NOTE | 2019-03-05 22:38 | Nephrology Consultation ---
Date of Consultation March 05, 2019 Assessment & Plan (1) Hyponatremia: Patient with hyponatremia due to low solute intake and psychogenic polydipsia. Very low urine osmolarity and urine sodium support these 2 etiologies. Her history is very suggestive of the diagnosis. Na corrected quickly. Given her initial sodium was only mildly elevated, she is at a lower risk for ODS. -No need for fluid restriction, patient can drink to thirst. I told her to avoid over drinking water. -Daily BMP -She needs to eat atleast 2 major meals daily (2) Hypokalemia due to inadequate potassium intake: I spent most of the time encouraging patient to try and eat atleast 2 meals daily. For now will monitor and replace potassium as needed. I discussed foods which are high in potassium. History of Present Illness Reason for Consultation: hyponatremia Requesting Physician: Ramesh Coyne mD Attending Physician: Pedro Maciel MD History of Present Illness This is a 59yr old female with PMH of schizophrenia and chronic urinary retention on chronic krueger who has admitted with nausea and constipation for several days. She was found to have Na of 124, urine osmolarity of 23, urine Na of 8 and serum osmolarity of 277. Patient tells me she only eats a bowel of cereal, drinks 8 cans of gingerale and 3 glasses of water daily. She never cooks a meal. She is tired of cooking. Her Na key to 135 with normal saline and has stayed around there despite D5W today. She feels well denies any SOB or pain. Nausea has resolved. Last BM was yesterday Allergies Allergy/AdvReac Type Severity Reaction Status Date / Time oxybutynin Allergy Unknown Unknown Verified 03/05/19 00:27 povidone-iodine Allergy Unknown Rash Verified 03/05/19 00:27 [From Betadine] soap [From Betadine] Allergy Unknown Rash Verified 03/05/19 00:27 Home Medications Home Medications Medication Instructions Recorded Confirmed Type esomeprazole magnesium [Nexium] 20 mg PO DAILY 05/22/18 03/05/19 History ziprasidone HCl [Geodon] 80 mg PO BID 05/22/18 03/05/19 History sennosides [Laxative Pills] 25 mg PO TID 07/11/18 03/05/19 History acetaminophen [Tylenol Arthritis 650 mg PO Q8H PRN 07/26/18 03/05/19 History Pain] magnesium hydroxide [Milk of 15 ml PO DAILY PRN 07/26/18 03/05/19 History Magnesia] clonazepam 1 mg PO TID 08/21/18 03/05/19 History risperidone 0.5 mg PO DAILY PRN 08/21/18 03/05/19 History Linzess 290 mcg PO DAILY 03/05/19 03/05/19 History Patient History Medical History Paranoid schizophrenia (Chronic) Hemorrhoids (Acute) Uterine cancer (Resolved) Urinary retention (Acute) UTI (urinary tract infection) Family History Other Cancer Diabetes Gallbladder disease Heart disease Hypertension Kidney disease Kidney stone Lung disease Seizures Social History Preferred Language: Thai Communication Ability: Effective Covering Machine Operator Required: No Beliefs That Will Affect Care: Orthodox Orthodox Beliefs: Amish Current Living Situation: Alone Other Information That Helps Us Care for You: No Feels Safe at Home: Yes Safety Concerns: Feels Safe At This Time Smoking Status: Former smoker Cigarettes Per Day: Pt uses one "zyn" patch daily, states it is nicotine, not tobacco Hx Alcohol Use: No Hx Substance Use: No Review of Systems Review of Systems: All systems reviewed & are unremarkable except as noted in HPI & below Physical Exam Physical Exam: General exam: Appears comfortable, no acute distress HEENT: Pupils are equal and reactive to light Neck: No JVD, neck is supple trachea is midline Respiratory system: Clear breath sounds bilaterally. Gastrointestinal: Abdomen is soft, non distended, non tender, bowel sounds are present CVS: Regular rate and rhythm. No murmurs, rubs or gallops Musculoskeletal: No joint or muscle tenderness Extremities: Non tender, no edema, peripheral pulses are present Neuro: Oriented, no tremors, no focal neurological deficits Skin: No rashes Results & Data Vital Signs (Past 12 Hours) Vital Signs Temp Pulse Pulse Resp BP Pulse Ox 03/05/19 19:34 36.8 C 78 18 122/83 99 03/05/19 16:43 84 03/05/19 15:03 37.3 C 87 20 120/83 98 03/05/19 12:05 36.6 C 82 16 123/82 97 Laboratory Results Laboratory Results - last 24 hr 03/04/19 03/04/19 03/05/19 20:23 20:23 05:17 WBC RBC Hgb Hct MCV MCH MCHC RDW Std Deviation RDW Coeff of Mary Plt Count MPV Immature Gran % (Auto) Neut % (Auto) Lymph % (Auto) [place] % (Auto) Eos % (Auto) Baso % (Auto) Immature Gran # (Auto) Neut # (Auto) Lymph # (Auto) [place] # (Auto) Eos # (Auto) Baso # (Auto) Sodium Potassium Chloride Carbon Dioxide Anion Gap BUN Creatinine Est Cr Clr Drug Dosing Est GFR ( Amer) Est GFR (Non-Af Amer) BUN/Creatinine Ratio Glucose Osmolality 277 L Calcium Magnesium Total Creatine Kinase TSH Urine Osmolality 23 L Ur Random Sodium 8 03/05/19 03/05/19 03/05/19 05:17 05:17 05:17 WBC 4.54 L RBC 3.66 L Hgb 11.6 L Hct 32.5 L MCV 88.8 MCH 31.7 MCHC 35.7 RDW Std Deviation 40.0 RDW Coeff of Mary 12.4 Plt Count 257 MPV 8.4 Immature Gran % (Auto) 0.2 Neut % (Auto) 36.6 Lymph % (Auto) 43.0 [place] % (Auto) 17.2 Eos % (Auto) 2.6 Baso % (Auto) 0.4 Immature Gran # (Auto) 0.01 Neut # (Auto) 1.66 Lymph # (Auto) 1.95 [place] # (Auto) 0.78 H Eos # (Auto) 0.12 Baso # (Auto) 0.02 Sodium 135 L D Potassium 3.6 D Chloride 103 Carbon Dioxide 26 Anion Gap 6.0 BUN 1 L Creatinine 0.42 L Est Cr Clr Drug Dosing 123.8 Est GFR ( Amer) 130.9 Est GFR (Non-Af Amer) 113.0 BUN/Creatinine Ratio 2.6 L Glucose 88 Osmolality Calcium 8.8 Magnesium Total Creatine Kinase 287 H TSH Urine Osmolality Ur Random Sodium 03/05/19 03/05/19 10:57 16:47 WBC RBC Hgb Hct MCV MCH MCHC RDW Std Deviation RDW Coeff of Mary Plt Count MPV Immature Gran % (Auto) Neut % (Auto) Lymph % (Auto) [place] % (Auto) Eos % (Auto) Baso % (Auto) Immature Gran # (Auto) Neut # (Auto) Lymph # (Auto) [place] # (Auto) Eos # (Auto) Baso # (Auto) Sodium 134 L 135 L Potassium 3.3 L 3.5 Chloride 102 102 Carbon Dioxide 29 28 Anion Gap 3.0 5.0 BUN 1 L < 1 L Creatinine 0.47 L 0.42 L Est Cr Clr Drug Dosing 110.6 123.8 Est GFR ( Amer) 126.2 130.9 Est GFR (Non-Af Amer) 108.9 113.0 BUN/Creatinine Ratio 2.2 L TNP Glucose 81 96 Osmolality Calcium 8.8 8.9 Magnesium 1.7 L Total Creatine Kinase TSH 0.684 Urine Osmolality Ur Random Sodium
[2019-03-06] MEDS: LINZESS~ORDER AWAITING ACTION SCH ×3 (00:02→15:14)
[2019-03-06] MEDS: cefTRIAXone SODIUM 1,000 MG in DEXTROSE 5% 50 ML IV SCH (04:45)
[2019-03-06] MEDS: DEXTROSE 5% 1,000 ML IV SCH (05:18)
[2019-03-06 06:03] LABS: Basophils # (auto) 0.02 K/uL (0-0.2); Basophils % (auto) 0.3 %; Eosinophils # (auto) 0.12 K/uL (0-0.5); Eosinophils % (auto) 1.8 %; Immature Granulocytes # (auto) 0.02 K/uL (0.00-0.02); Immature Granulocytes % (auto) 0.3 %; Lymphocytes # (auto) 1.69 K/uL (1.2-3.4); Lymphocytes % (auto) 25.1 %; Mean Corpuscular Hgb Conc 34.3 g/dL (32-36); Mean Corpuscular Volume 91.6 fL (80-100); Mean Platelet Volume 8.8 fL (7.4-10.4); Monocytes # (auto) 0.71 K/uL (0.11-0.59); Monocytes % (auto) 10.5 %; Neutrophils # (auto) 4.18 K/uL (1.4-6.5); Platelet Count 261 K/uL (130-400); RDW Coefficient of Variation 12.7 % (11.5-14.5); RDW Standard Deviation 42.5 fL (36.4-46.3); Red Blood Count 3.82 M/uL (4.2-5.4); White Blood Count 6.74 K/uL (4.8-10.8)
[2019-03-06 06:50] LABS: Alanine Aminotransferase 11 U/L (12-78); Albumin Level 3.4 gm/dl (3.4-5.0); Aspartate Aminotransferase 20 U/L (15-37); Blood Urea Nitrogen < 1 mg/dl (7-18); Calcium 8.9 mg/dl (8.5-10.1); Carbon Dioxide 29 mmol/L (21-32); Chloride 97 mmol/L (98-107); Creatinine Clr Calc Pharmacy 100.2 ml/min; Est GFR (African American) 124.5; Est GFR (Non-African American) 107.4; Glucose 101 mg/dl (70-99); Magnesium 2.2 mg/dl (1.8-2.4); Potassium 3.4 mmol/L (3.5-5.1); Sodium 130 mmol/L (136-145)
[2019-03-06 06:52] LABS: Albumin Globulin Ratio 1.1 (0.9-2); Alkaline Phosphatase 87 U/L (45-117); Bilirubin,Total 0.4 mg/dl (0.2-1); Globulin 3.1 gm/dl (2.5-4.0); Total Protein 6.5 gm/dl (6.4-8.2)
[2019-03-06] MEDS ORDERED: POTASSIUM CHLORIDE 20 MEQ TABCR PO ONE (07:30)
[2019-03-06] MEDS: MAGNESIUM OXIDE 400 MG TAB PO SCH (08:11)
[2019-03-06] MEDS: DOCUSATE SODIUM 100 MG CAP PO SCH (08:11)
[2019-03-06] MEDS: ZIPRASIDONE HCL 80 MG CAP PO SCH (08:11)
[2019-03-06] MEDS: PANTOprazole 40 MG TAB PO SCH (08:12)
[2019-03-06] MEDS: clonazePAM 1 MG TAB PO SCH ×2 (08:14→15:23)
--- NOTE | 2019-03-06 09:45 | Gastroenterology Progress Note ---
Date of Service March 06, 2019 Assessment & Plan (1) Electrolyte abnormality: (2) Weight loss: (3) Ileus: Pt is a 59 y/o female currently admitted for electrolyte abnormalities, concerning for polydipsia symptoms seen for nausea, constipation and weight loss. Previously seen in GI clinic by Dr. Porter, started on Linzess for chronic constipation suspect from likely psych meds anticholinergic effects and had success w daily BM. However yesterday CT abd/pelvis w contrast showed non ob structive ileus. Overnight did pass BMs and flatus, on exam today abd soft, non tender and BS +. KUB cancelled. - Advance diet as tolerated - No contraindication for DC home from GI standpoint. She should continue the Linzess after DC (wasn't available at hospital). - Defer to primary team for electrolyte management. Keep K >4 to prevent recurrence of ileus - Plan on rescheduling endoscopies once her current problems are resolved Supervising Physician Co-Signing Physician Notes I saw and evaluated the patient. She appears to be having bowel movements at this point. She will have further evaluation with upper endoscopy and colonoscopy with over the next few weeks. If there are any additional questions during the remainder of the hospital admission please contact us. Subjective Pt had good BM yesterday, passing flatus. Denies any abd pain, n/v, tolerating CL diet well. She asked if she can go home today Review of Systems Review of Systems: All systems reviewed & are unremarkable except as noted in HPI & below Physical Exam Constitutional: WD/WN, vitals as above well groomed, cooperative and comfortable Eyes: PERRL, conjunctivae normal, anicteric sclerae ENMT: external ear and nose normal, oropharynx normal Respiratory: normal respiratory effort, lungs clear to auscultation Cardiovascular: RRR, no murmur, no edema Gastrointestinal (Abdomen): normal bowel sounds, soft, nontender, no hepatosplenomegaly Skin: no rashes, warm and dry no jaundice Neurologic: Motor/Sensory: no asterixis Psychiatric: Orientation: alert and oriented x 3 Affect: + flat affect Lymphatic: no lymphedema Results & Data Vital Signs (Past 12 Hours) Vital Signs Temp Pulse Pulse Resp BP Pulse Ox 03/06/19 07:43 97 H 03/06/19 07:27 36.5 C 81 18 128/88 99 03/06/19 04:00 36.7 C 93 H 19 128/86 97 03/06/19 00:03 89 03/05/19 23:00 36.6 C 72 18 97/60 L 93
[2019-03-06 14:35] LABS: BUN Creatinine Ratio 1.9 (10-20); Calcium 8.9 mg/dl (8.5-10.1); Creatinine Clr Calc Pharmacy 86.1 ml/min; Est GFR (African American) 118.4; Est GFR (Non-African American) 102.2
--- NOTE | 2019-03-06 15:53 | Hospitalist Progress Note ---
Date of Service March 06, 2019 Assessment & Plan (1) Hyponatremia: This is a 59-year-old female with past medical history significant for paranoid schizophrenia, chronic urinary retention, on chronic Krueger catheter, chronic idiopathic constipation. Hyponatremia due to poor oral intake and psychogenic polydipsia unspecified protein calorie Malnutrition BMI is 18.6 -presented to the hospital on 03/04/19 because of nausea and vomiting -found to have hyponatremia and hypokalemia -serum sodium on admission as 124 -was corrected to 135 in AM of 03/05/19 with normal saline and then received some D5 IV fluids to prevent excessive correction and serum sodium and follow up sodium as 134 -03/06/19 Patient's discharge day serum sodium level is stable at 130. Patient is advised to take Boost nutrition supplements with meals and avoid soda products. Patient should limit to 12 cups of total fluids per day (3 liters) -03/06/19 Patient requesting to be discharged and should follow up with primary care doctor (03/10/2019 1:20 PM Provider Nathan Middleton MD [facility]) to have electrolytes checked Hypokalemia -serum sodium is 2.4 on admission -after potassium supplementation in the hospital the serum potassium is 4 as of 03/06/19 -Patient should take potassium 10 meq daily for the next 10 days -potassium and magnesium prescriptions sent electronically to [facility] [address] [place] [id number] Hypomagnesemia -Patient should take magnesium 400 mg daily for the next 10 days -potassium and magnesium prescriptions sent electronically to [facility] [address] [place] [id number] History of paranoid schizophrenia - Continue ziprassidone (Geodon) BID and risperidone p.r.n. and Klonopin t.i.d. Ileus -admission CT : Mild nonobstructive colonic ileus. -TSH 0.684 is normal range -Linzess not available in hospital. gastroenterology service start bowel regimen: Colace 100mg BID, Milk of Mg 30mL now and then q6hrs prn constipation, Dulcolax 10mg RI x 1 now. -patient was able to make bowel movements -Patient evaluated by gastronenterology service as inpatient and they will coordinate outpatient follow up Chronic urinary retention -Continue Krueger catheter -Patient is to be discharged with krueger and follow up 03/18/2019 9:30 AM Provider Nurse Urology Emre Hardins [facility] (pansensitive Enterobacter cloacae) -Patient was also treated with ceftriaxone for urinary tract infection for 2 days in the hospital, patient should continue cephalexin 500 mg every 12 hours for 5 more days (prescriptions sent electronically to [facility] [address] [place] [phone] ) Gastroesophageal reflux disease -On proton pump inhibitor. History of recurrent ovarian cancer 20 years ago, status post total abdominal hysterectomy with removal of tubes. Deep venous thrombosis prophylaxis, sequential compression devices while inpatient Discharge Diagnosis Hyponatremia due to poor oral intake and psychogenic polydipsia, unspecified protein calorie Malnutrition, BMI is 18.6, Hypokalemia, Ileus (constipation is resolved), Chronic urinary retention, urinary tract infection (pansensitive Enterobacter cloacae), hypomagnesemia Subjective After being on [id number] to avoid overcorrection, serum sodium is 130. serum sodium labs remained 130 on afternoon recheck. patient's family at the bedside and after discussing the hospital course, patient would like to be discharged from the hospital. as her serum sodium is much improved and despite being low normal ranges, patient and her family was counseled extensively on follow up plans after hospital discharge including instructions on medications, diet intake, and fluid intake , and outpatient follow ups. patient feels comfortable. no distress. she is cooperative. no abdomen pain. no vomiting. no lightheadedness. she has been able to make bowel movements. continues to have krueger Physical Exam Constitutional: WD/WN, vitals as above Eyes: PERRL, conjunctivae normal, anicteric sclerae EOM intact bilaterally ENMT: external ear and nose normal, oropharynx normal Neck: trachea midline, no thyromegaly normal visual inspection Respiratory: normal respiratory effort, lungs clear to auscultation Cardiovascular: Rate/Rhythm: regular rate and regular rhythm Gastrointestinal (Abdomen): Inspection/Auscultation: abdomen normal to inspection Percussion/Palpation: abdomen soft Musculoskeletal: Head/Neck/Chest: normocephalic and head atraumatic Neurologic: PERRL, EOMI, accommodation nl, no face palsy, no dysarthria CN's II-XI intact bilaterally Psychiatric: Orientation: alert and cooperative Genitourinary: krueger Results & Data Vital Signs (Past 12 Hours) Vital Signs Temp Pulse Pulse Pulse Resp BP Pulse Ox 03/06/19 15:43 36.9 C 92 H 94 H 18 128/87 98 03/06/19 11:18 36.9 C 94 H 18 128/87 98 03/06/19 07:43 97 H 03/06/19 07:27 36.5 C 81 18 128/88 99 03/06/19 04:00 36.7 C 93 H 19 128/86 97
[2019-03-06 16:00] VITALS: BP 121/78; PULSE 91; TEMP 98.2; O2SAT 96
--- NOTE | 2019-03-06 16:08 | Discharge Summary ---
Date of Service March 06, 2019 Admission HPI Per Admitting Provider HISTORY OF PRESENT ILLNESS: This is a 59-year-old female with past medical history significant for paranoid schizophrenia, chronic urinary retention, on chronic Krueger catheter, chronic idiopathic constipation. The patient is having ongoing constipation for last several months, on a stool softener, which helps to move her bowels,.She is having loss of weight. She states because of constipation causing bloating and poor appetite, she has lost about 30 pounds in the last 6 months, recently seen in Gastroenterology and started on Linzess and she is supposed to get colonoscopy and esophagogastroduodenoscopy as per the patient yesterday, but it was held because of electrolyte abnormalities and today that is 03/04/2019 she was having lot of nausea and vomiting so she called her ex- and she was brought in here and found to have hypokalemia and hyponatremia. Currently, she is resting comfortably. She states that she is still nauseous, complaining of some abdominal discomfort. She moved good bowel movement today and also had a bowel movement yesterday, but she states the bowels are moving only when she is taking laxatives. She did not have a bowel prep for colonoscopy because of abnormal laboratories. Lives alone. She can drive by herself. She cooks her own food. Denies any chest pain or shortness of breath. No headache. No blurred vision. No earache. No runny nose. No sore throat, but lately she has some difficulty swallowing. No cough. No fevers. She has a Krueger catheter. No swelling in the legs. No rash. She states she drinks about 8-10 glasses of water every day and also she drinks about 8 cans of soda every day because she feels thirsty. She is taking her medications regularly. ALLERGIES: OXYBUTYNIN. PAST MEDICAL HISTORY: As mentioned above. PAST SURGICAL HISTORY: Colonoscopies with cautery, esophagogastroduodenoscopy, internal hemorrhoidectomy, laparoscopic biopsy, total abdominal hysterectomy with removal of tubes for recurrent ovarian cancer 20 years ago. MEDICATIONS: The patient is on MiraLax daily, Linzess 290 mcg daily, risperidone 0.5 mg p.o. daily p.r.n., Nexium daily, Klonopin 1 mg p.o. t.i.d. and Geodon 80 mg p.o. b.i.d. FAMILY HISTORY: Significant for mother had mental disorder. Paternal grandfather had cancer. Paternal grandmother has breast cancer. Aunt has breast cancer. SOCIAL HISTORY: . Lives alone. Former smoker, quit in 2011, smoked a half a pack a day for 38 years. No alcohol use. No drug use. REVIEW OF SYMPTOMS: As per HPI. Rest of review of symptoms negative. Admission Exam Per Admitting Provider PHYSICAL EXAMINATION: GENERAL: The patient is thin and frail, not in acute distress. VITAL SIGNS: Temperature 37.1, pulse 72, respiratory rate 18, blood pressure 94/60 and oxygen 98% on room air. HEENT: No pallor. No icterus. Pupils are equal, round and reactive to light. NECK: No JVD. No neck masses. No carotid bruits. CARDIOVASCULAR: S1, S2 heard. Regular rate and rhythm. No murmur. No gallop. RESPIRATORY SYSTEM: Normal AP diameter. No accessory muscle use. No wheezing. No crackles. ABDOMEN: Soft. Bowel sounds hyperactive. Mild diffuse discomfort. No guarding. No rigidity. No distention. CENTRAL NERVOUS SYSTEM: Cranial nerves II through XII grossly intact. Nonfocal. EXTREMITIES: No edema. No erythema. Principal Diagnosis Hyponatremia due to poor oral intake and psychogenic polydipsia, unspecified protein calorie Malnutrition, BMI is 18.6, Hypokalemia, Ileus (constipation is resolved), Chronic urinary retention, urinary tract infection (pansensitive Enterobacter cloacae), hypomagnesemia Discharge Exam Constitutional WD/WN, vitals as above Eyes PERRL, conjunctivae normal, anicteric sclerae EOM intact bilaterally ENMT external ear and nose normal, oropharynx normal Neck trachea midline, no thyromegaly normal visual inspection Respiratory normal respiratory effort, lungs clear to auscultation Cardiovascular Rate/Rhythm: regular rate and regular rhythm Gastrointestinal (Abdomen) Inspection/Auscultation: abdomen normal to inspection Percussion/Palpation: abdomen soft Musculoskeletal Head/Neck/Chest: normocephalic and head atraumatic Neurologic PERRL, EOMI, accommodation nl, no face palsy, no dysarthria CN's II-XI intact bilaterally Psychiatric Orientation: alert and cooperative Discharge Data Allergies Allergy/AdvReac Type Severity Reaction Status Date / Time oxybutynin Allergy Unknown Unknown Verified 03/05/19 00:27 povidone-iodine Allergy Unknown Rash Verified 03/05/19 00:27 [From Betadine] soap [From Betadine] Allergy Unknown Rash Verified 03/05/19 00:27 Consultations 03/05/19 00:22 ED Decision to Admit Stat 03/05/19 08:00 Consult Gastroenterology Routine Consult Nephrology Routine Ordered Studies 03/04/19 19:35 CT abd pelvis oral and IV con Urgent 03/04/19 19:46 CT head/brain wo con Urgent Hospital Course (1) Hyponatremia: This is a 59-year-old female with past medical history significant for paranoid schizophrenia, chronic urinary retention, on chronic Krueger catheter, chronic idiopathic constipation. Hyponatremia due to poor oral intake and psychogenic polydipsia unspecified protein calorie Malnutrition BMI is 18.6 -presented to the hospital on 03/04/19 because of nausea and vomiting -found to have hyponatremia and hypokalemia -serum sodium on admission as 124 -was corrected to 135 in AM of 03/05/19 with normal saline and then received some D5 IV fluids to prevent excessive correction and serum sodium and follow up sodium as 134 -03/06/19 Patient's discharge day serum sodium level is stable at 130. Patient is advised to take Boost nutrition supplements with meals and avoid soda products. Patient should limit to 12 cups of total fluids per day (3 liters) -03/06/19 Patient requesting to be discharged and should follow up with primary care doctor (03/10/2019 1:20 PM Provider Nathan Middleton MD [facility]) to have electrolytes checked Hypokalemia -serum sodium is 2.4 on admission -after potassium supplementation in the hospital the serum potassium is 4 as of 03/06/19 -Patient should take potassium 10 meq daily for the next 10 days -potassium and magnesium prescriptions sent electronically to [facility] [address] [place] [id number] Hypomagnesemia -Patient should take magnesium 400 mg daily for the next 10 days -potassium and magnesium prescriptions sent electronically to [facility] [address] [place] [id number] History of paranoid schizophrenia - Continue ziprassidone (Geodon) BID and risperidone p.r.n. and Klonopin t.i.d. Ileus -admission CT : Mild nonobstructive colonic ileus. -TSH 0.684 is normal range -Linzess not available in hospital. gastroenterology service start bowel jose men: Colace 100mg BID, Milk of Mg 30mL now and then q6hrs prn constipation, Dulcolax 10mg MO x 1 now. -patient was able to make bowel movements -Patient evaluated by gastronenterology service as inpatient and they will coordinate outpatient follow up Chronic urinary retention -Continue Krueger catheter -Patient is to be discharged with krueger and follow up 03/18/2019 9:30 AM Provider Nurse Urology [facility] Department Urology, [facility] urinary tract infection (pansensitive Enterobacter cloacae) -Patient was also treated with ceftriaxone for urinary tract infection for 2 da ys in the hospital, patient should continue cephalexin 500 mg every 12 hours for 5 more days (prescriptions sent electronically to [facility] [address] [place] [phone] ) Gastroesophageal reflux disease -On proton pump inhibitor. History of recurrent ovarian cancer 20 years ago, status post total abdominal hysterectomy with removal of tubes. Deep venous thrombosis prophylaxis, sequential compression devices while inpatient Discharge Diagnosis Hyponatremia due to poor oral intake and psychogenic polydipsia, unspecified protein calorie Malnutrition, BMI is 18.6, Hypokalemia, Ileus (constipation is resolved), Chronic urinary retention, urinary tract infection (pansensitive Enterobacter cloacae), hypomagnesemia Total Time Total Time Spent Total Time Spent (In Minutes): 40 minutes Total Time Includes: Examination of the Patient, Discharge Planning, Medication Reconciliation and Communication With Other Providers Discharge Plan Discharge Items Patient Disposition: Home - Self-Care Reason For Visit: NAUSEA Discharge Diagnosis: Hyponatremia due to poor oral intake and psychogenic polydipsia, unspecified protein calorie Malnutrition, BMI is 18.6, Hypokalemia, Ileus (constipation is resolved), Chronic urinary retention, urinary tract infection (pansensitive Enterobacter cloacae), hypomagnesemia Condition: Good Discharge Goals: Improve disease control Activity: Resume your previous activity Non-emergency contact: Primary Care Provider Call non-emergency contact if: you have any medication questions Follow-up/Referrals: Nathan Middleton MD [Primary Care Provider] - Diet: Regular Addtl Provider Instructions: Discharge to home Patient's discharge day serum sodium level is stable at 130. Patient is advised to take Boost nutrition supplements with meals and avoid soda products. Patient should limit to 12 cups of total fluids per day (3 liters) Patient should take potassium 10 meq daily for the next 10 days Patient should take magnesium 400 mg daily for the next 10 days (Boost supplements are written as paper prescription but they are also over the counter supplements that can be purchased in supermarket) potassium and magnesium prescriptions sent electronically to [facility] [address] [place] [phone] Patient requesting to be discharged and should follow up with primary care doctor (03/10/2019 1:20 PM Provider Nathan Middleton MD Department [facility]) to have electrolytes checked Patient was also treated with ceftriaxone for urinary tract infection for 2 days in the hospital, patient should continue cephalexin 500 mg every 12 hours for 5 more days (prescriptions sent electronically to [facility] [address] [place] [phone] ) Patient is to be discharged with krueger and follow up 03/18/2019 9:30 AM Provider Nurse Urology [facility] Department Urology, [facility] Patient also evaluated by gastronenterology service as inpatient and they will coordinate outpatient follow up Prescriptions: New magnesium oxide 400 mg (241.3 mg magnesium) Tablet 400 mg PO QAM 10 Days Qty: 10 RF: 0 potassium chloride [Klor-Con M10] 10 mEq Tablet,Er Particles/Crystals 10 meq PO DAILY 10 Days Qty: 10 RF: 0 cephalexin 500 mg Capsule 500 mg PO Q12H 5 Days Qty: 10 RF: 0 Continued ziprasidone HCl [Geodon] 80 mg Capsule 80 mg PO BID RF: 0 esomeprazole magnesium [Nexium] 20 mg Capsule,Delayed Release(Dr/Ec) 20 mg PO DAILY RF: 0 magnesium hydroxide [Milk of Magnesia] 400 mg/5 mL Suspension 15 ml PO DAILY PRN (Reason: Constipation) RF: 0 Laxative Pills 25 mg Tablet 25 mg PO TID RF: 0 clonazepam 1 mg tablet 1 mg PO TID RF: 0 risperidone 0.5 mg tablet,disintegrating 0.5 mg PO DAILY PRN (Reason: Anxiety) RF: 0 Linzess 290 mcg 290 mcg PO DAILY RF: 0 Discontinued acetaminophen [Tylenol Arthritis Pain] 650 mg Tablet Extended Release 650 mg PO Q8H PRN (Reason: Pain) RF: 0 Stand-Alone Forms: [facility] Discharge Orders: Discharge Order (Routine); Ordered 03/06/19 Ordered By: Pedro Maciel Admission Data Admit Date/Time: 03/05/19 01:03 Attending Provider: Pedro Maciel Admit Provider: Stanford Chandler Primary Care Provider: Nathan Middleton Other Providers: Stanford Chandler ; Stanislav Coto ; Heather Almonte Service: Telemetry Medical Other Interventions: Discharge Summary Assessment (RN) Last Done: 03/06/19 15:43
[2019-03-06] MEDS ORDERED: cephALEXin 500 MG CAP PO SCH (21:00)
[2019-03-07] MEDS ORDERED: POTASSIUM CHLORIDE 10 MEQ TABCR PO SCH (09:00)
== END 2019-03-06 17:12 | disposition home or self-care (01) | DRG 641 ==
LOC: ED 19:02 → 2N 03-05 01:03

== ENCOUNTER 2019-11-20 15:06 | Inpatient (IN) ==
--- NOTE | 2019-11-20 16:09 | Emergency Department Note ---
History of Present Illness General Chief complaint: Constipation Stated complaint: CONSTIPATION, DIZZINESS, HEADACHE, VOMITING, Time Seen by Provider: 11/20/19 15:45 Source: patient Mode of arrival: EMS Limitations: no limitations History of Present Illness Maximum Pain Intensity: 10 This patient comes in complaining of constipation. She was brought in by EMS. She says she is been vomiting for a few days. She is a chronic Montes catheter in as well for last year. That is had normal output. No numbness or weakness in her legs. No fever or chills. No fall or trauma. She tried an enema today and had some hard stuff. She has been belching a lot. She tells me she has paranoid schizophrenia but stopped her medications because it was making her constipated. She has no homicidal ideations. Denies that she is seeing or hearing things but has had some fleeting suicidal thoughts without a plan or attempt. No aspirin or Tylenol use. No drugs or alcohol. Home Medications Home Medications Medication Instructions Recorded Confirmed Type esomeprazole magnesium [Nexium] 20 mg PO QAM 05/22/18 11/20/19 History magnesium hydroxide [Milk of 15 ml PO DAILY PRN 07/26/18 11/20/19 History Magnesia] potassium chloride 20 meq PO QAM PRN 11/05/19 11/20/19 History Allergies Allergy/AdvReac Type Severity Reaction Status Date / Time oxybutynin Allergy Unknown Unknown Verified 11/20/19 16:16 povidone-iodine Allergy Unknown Rash Verified 11/20/19 16:16 [From Betadine] soap [From Betadine] Allergy Unknown Rash Verified 11/20/19 16:16 Past Med/Surg History Medical History Anxiety (Acute) Hemorrhoids (Acute) Paranoid schizophrenia (Chronic) Urinary retention (Acute) Uterine cancer (Resolved) Surgical History H/O hemorrhoidectomy Hx of hysterectomy Family History Other Cancer Diabetes Gallbladder disease Heart disease Hypertension Kidney disease Kidney stone Lung disease Seizures Social History Preferred Language: Thai Communication Ability: Effective Copy Center Associate Required: No Beliefs That Will Affect Care: Druze Druze Beliefs: Zoroastrian Current Living Situation: Alone Feels Safe at Home: Yes Smoking Status: Former smoker Cigarettes Per Day: Pt uses one "zyn" patch daily, states it is nicotine, not tobacco ; Hx Alcohol Use: No Hx Substance Use: No Review of Systems A total of 10 systems reviewed and were otherwise negative Physical Exam Vital Signs Vital Signs - 24 hr 11/20/19 15:16 11/20/19 15:24 11/20/19 15:29 Temperature 36.8 C Temperature Source Oral Pulse Rate 86 82 79 Pulse Rate from SpO2 Sensor 86 80 Respiratory Rate 16 20 16 Respiratory Effort / Characteristics Non-Labored Spontaneous Respiratory Depth Normal Respiratory Pattern Regular Blood Pressure 142/93 H 142/93 H Blood Pressure Mean 122 109 Pulse Oximetry 99 98 96 Oxygen Delivery Method Room Air Sepsis Recent Fever Within 48 Hours No Sepsis Action Taken by Nursing No Action Required 11/20/19 15:30 11/20/19 15:31 11/20/19 16:00 Temperature Temperature Source Pulse Rate 81 82 81 Pulse Rate from SpO2 Sensor 80 83 80 Respiratory Rate 20 24 23 Respiratory Effort / Characteristics Respiratory Depth Respiratory Pattern Blood Pressure 155/99 H 133/115 H Blood Pressure Mean 110 122 Pulse Oximetry 91 96 98 Oxygen Delivery Method Sepsis Recent Fever Within 48 Hours Sepsis Action Taken by Nursing 11/20/19 16:01 11/20/19 16:13 11/20/19 16:30 Temperature Temperature Source Pulse Rate 77 77 78 Pulse Rate from SpO2 Sensor 77 77 78 Respiratory Rate 20 20 21 Respiratory Effort / Characteristics Respiratory Depth Respiratory Pattern Blood Pressure 133/115 H Blood Pressure Mean 122 Pulse Oximetry 98 97 99 Oxygen Delivery Method Sepsis Recent Fever Within 48 Hours Sepsis Action Taken by Nursing 11/20/19 17:00 11/20/19 17:01 11/20/19 17:30 Temperature Temperature Source Pulse Rate 81 78 80 Pulse Rate from SpO2 Sensor 81 77 80 Respiratory Rate 18 22 27 H Respiratory Effort / Characteristics Respiratory Depth Respiratory Pattern Blood Pressure 153/85 H Blood Pressure Mean 111 Pulse Oximetry 98 99 99 Oxygen Delivery Method Sepsis Recent Fever Within 48 Hours Sepsis Action Taken by Nursing 11/20/19 17:31 11/20/19 17:32 11/20/19 18:00 Temperature Temperature Source Pulse Rate 78 77 78 Pulse Rate from SpO2 Sensor 79 78 78 Respiratory Rate 21 22 19 Respiratory Effort / Characteristics Respiratory Depth Respiratory Pattern Blood Pressure 121/74 Blood Pressure Mean 89 Pulse Oximetry 98 98 98 Oxygen Delivery Method Sepsis Recent Fever Within 48 Hours Sepsis Action Taken by Nursing 11/20/19 18:01 11/20/19 18:30 11/20/19 18:31 Temperature Temperature Source Pulse Rate 77 85 84 Pulse Rate from SpO2 Sensor 78 87 84 Respiratory Rate 22 30 H 24 Respiratory Effort / Characteristics Respiratory Depth Respiratory Pattern Blood Pressure 129/85 151/99 H Blood Pressure Mean 98 113 Pulse Oximetry 98 98 96 Oxygen Delivery Method Sepsis Recent Fever Within 48 Hours Sepsis Action Taken by Nursing 11/20/19 19:00 11/20/19 19:31 Temperature Temperature Source Pulse Rate 74 73 Pulse Rate from SpO2 Sensor 74 Respiratory Rate 24 26 H Respiratory Effort / Characteristics Respiratory Depth Respiratory Pattern Blood Pressure 127/74 109/64 Blood Pressure Mean 79 69 Pulse Oximetry 98 98 Oxygen Delivery Method Sepsis Recent Fever Within 48 Hours Sepsis Action Taken by Nursing General: Well developed well nourished in no acute distress, breathing comfortably on room air. Normal speech HEENT: Normal cephalic atraumatic. Pupils are equal round and reactive to light. Extraocular movements are intact. Oropharynx is pink with moist mucous membranes. No swelling of the mouth lips or tongue. Neck: Supple with a midline trachea. No meningeal signs or stiffness, no JVD or bruits. No Stridor. Chest: Clear to auscultation bilaterally. No wheezes or rhonchi. No increased work of breathing. Heart: Regular rate and rhythm without murmurs or gallops. Abdomen: Soft nontender, nondistended without rebound guarding or rigidity. Montes catheter in place with clear yellow urine Extremities: No cyanosis clubbing or edema. No calf tenderness or assymetry Spine/Back. Non tender to palpation. No CVA tenderness Skin: Good turgor without rashes. Neurologic exam: Cranial nerves two through 12 are intact. Motor and sensation are intact and symmetrical throughout. Course Administered Medications Potassium Chloride (Klor-Con M20) 40 meq PO Q3H FAWAD Stop: 11/20/19 22:28 Last Admin: 11/20/19 19:46 Dose: 40 meq Documented by: [id number] Discontinued Medications Sodium Chloride (Nss 1000ml) 1,000 mls @ 999 mls/hr IV .Q1H1M FAWAD Stop: 11/20/19 17:15 Last Infusion: 11/20/19 19:46 Dose: 0 mls/hr Documented by: [id number] Admin: 11/20/19 17:42 Dose: 999 mls/hr Documented by: [id number] Potassium Chloride (K Mani / Wtr) 10 meq in 100 mls @ 100 mls/hr IV Q1H FAWAD Stop: 11/20/19 19:14 Last Admin: 11/20/19 19:45 Dose: 100 mls/hr Documented by: [id number] Infusion: 11/20/19 18:42 Dose: 0 mls/hr Documented by: [id number] Admin: 11/20/19 17:42 Dose: 100 mls/hr Documented by: [id number] Medical Decision Making Differential Diagnosis Constipation, cauda equina, schizophrenia, electrolyte or metabolic abnormality, bowel obstruction, toxicologic, cardiac disease Medical Records Attestation: I reviewed the patient's medical records. Home Medications Current Medication List: was personally reviewed by me Laboratory Data Attestation: I reviewed the patient's lab results. Result diagrams: 11/20/19 16:31 11/20/19 16:31 Lab Results 11/20/19 11/20/19 11/20/19 Range/Units 16:31 16:31 16:31 WBC 6.82 (4.8-10.8) K/uL RBC 3.74 L (4.2-5.4) M/uL Hgb 12.4 (12.0-16.0) g/dL Hct 34.0 L (37-47) % MCV 84.2 (80-100) fL MCH 30.7 (25-34) pg MCHC 36.5 H (32-36) g/dL RDW Std Deviation 35.5 L (36.4-46.3) fL RDW Coeff of Mary 11.5 (11.5-14.5) % Plt Count 267 (130-400) K/uL MPV 8.7 (7.4-10.4) fL Immature Gran % (Auto) 0.1 % Neut % (Auto) 49.5 % Lymph % (Auto) 38.6 % George % (Auto) 11.0 % Eos % (Auto) 0.7 % Baso % (Auto) 0.1 % Immature Gran # (Auto) 0.01 (0.00-0.02) K/uL Neut # (Auto) 3.37 (1.4-6.5) K/uL Lymph # (Auto) 2.63 (1.2-3.4) K/uL George # (Auto) 0.75 H (0.11-0.59) K/uL Eos # (Auto) 0.05 (0-0.5) K/uL Baso # (Auto) 0.01 (0-0.2) K/uL Sodium 121 L (136-145) mmol/L Potassium 2.3 L* (3.5-5.1) mmol/L Chloride 81 L (98-107) mmol/L Carbon Dioxide 30 (21-32) mmol/L Anion Gap 10.0 (3-11) BUN < 1 L (7-18) mg/dl Creatinine 0.45 L (0.6-1.2) mg/dl Est Cr Clr Drug Dosing 106.1 ml/min Est GFR ( Amer) 128.0 Est GFR (Non-Af Amer) 110.4 BUN/Creatinine Ratio TNP Glucose 90 (70-99) mg/dl Osmolality (280-300) mOsm/kg Calcium 9.1 (8.5-10.1) mg/dl Magnesium (1.8-2.4) mg/dl Total Bilirubin 0.8 (0.2-1) mg/dl AST 19 (15-37) U/L ALT 11 L (12-78) U/L Alkaline Phosphatase 70 (45-117) U/L Total Protein 6.2 L (6.4-8.2) gm/dl Albumin 3.5 (3.4-5.0) gm/dl Globulin 2.7 (2.5-4.0) gm/dl Albumin/Globulin Ratio 1.3 (0.9-2) TSH 0.451 (0.300-4.500) uIu/ml Urine Color Urine Appearance (Clear) Urine pH (4.5-7.5) Ur Specific Bivins (1.000-1.030) Urine Protein (Negative) Urine Glucose (UA) (Negative) Urine Ketones (Negative) Urine Blood (Negative) Urine Nitrite (Negative) Urine Bilirubin (Negative) Urine Urobilinogen (Negative) Ur Leukocyte Esterase (Negative) Urine WBC (Auto) (0-5) /hpf Urine RBC (Auto) (0-4) /hpf U Hyaline Cast (Auto) (0-5) /lpf U Epithel Cells (Auto) (0-5) /lpf Urine Bacteria (Auto) (Negative) Urine Osmolality (500-800) mOsm/kg Urine Sodium mmol/L Urine Potassium mmol/L Urine Chloride mmol/L Salicylates < 1.7 L (2.8-20) mg/dl Urine Opiates Screen (Neg) Ur Methadone, Qual (Neg) Acetaminophen < 2 L (10-30) ug/ml Urine Barbiturates (Neg) Ur Phencyclidine (PCP) (Neg) U Amphetamin/Meth Scrn (Neg) MDMA (Ecstasy) Screen (Neg) U Benzodiazepines Scrn (Neg) Ur Cocaine Metabolite (Neg) U Marijuana (THC) Screen (Neg) Ethyl Alcohol mg/dL (0-3) mg/dl 11/20/19 11/20/19 11/20/19 Range/Units 16:31 16:31 16:33 WBC (4.8-10.8) K/uL RBC (4.2-5.4) M/uL Hgb (12.0-16.0) g/dL Hct (37-47) % MCV (80-100) fL MCH (25-34) pg MCHC (32-36) g/dL RDW Std Deviation (36.4-46.3) fL RDW Coeff of Mary (11.5-14.5) % Plt Count (130-400) K/uL MPV (7.4-10.4) fL Immature Gran % (Auto) % Neut % (Auto) % Lymph % (Auto) % George % (Auto) % Eos % (Auto) % Baso % (Auto) % Immature Gran # (Auto) (0.00-0.02) K/uL Neut # (Auto) (1.4-6.5) K/uL Lymph # (Auto) (1.2-3.4) K/uL George # (Auto) (0.11-0.59) K/uL Eos # (Auto) (0-0.5) K/uL Baso # (Auto) (0-0.2) K/uL Sodium (136-145) mmol/L Potassium (3.5-5.1) mmol/L Chloride (98-107) mmol/L Carbon Dioxide (21-32) mmol/L Anion Gap (3-11) BUN (7-18) mg/dl Creatinine (0.6-1.2) mg/dl Est Cr Clr Drug Dosing ml/min Est GFR ( Amer) Est GFR (Non-Af Amer) BUN/Creatinine Ratio Glucose (70-99) mg/dl Osmolality 244 L (280-300) mOsm/kg Calcium (8.5-10.1) mg/dl Magnesium 1.7 L (1.8-2.4) mg/dl Total Bilirubin (0.2-1) mg/dl AST (15-37) U/L ALT (12-78) U/L Alkaline Phosphatase (45-117) U/L Total Protein (6.4-8.2) gm/dl Albumin (3.4-5.0) gm/dl Globulin (2.5-4.0) gm/dl Albumin/Globulin Ratio (0.9-2) TSH (0.300-4.500) uIu/ml Urine Color Urine Appearance (Clear) Urine pH (4.5-7.5) Ur Specific Bivins (1.000-1.030) Urine Protein (Negative) Urine Glucose (UA) (Negative) Urine Ketones (Negative) Urine Blood (Negative) Urine Nitrite (Negative) Urine Bilirubin (Negative) Urine Urobilinogen (Negative) Ur Leukocyte Esterase (Negative) Urine WBC (Auto) (0-5) /hpf Urine RBC (Auto) (0-4) /hpf U Hyaline Cast (Auto) (0-5) /lpf U Epithel Cells (Auto) (0-5) /lpf Urine Bacteria (Auto) (Negative) Urine Osmolality (500-800) mOsm/kg Urine Sodium mmol/L Urine Potassium mmol/L Urine Chloride mmol/L Salicylates (2.8-20) mg/dl Urine Opiates Screen (Neg) Ur Methadone, Qual (Neg) Acetaminophen (10-30) ug/ml Urine Barbiturates (Neg) Ur Phencyclidine (PCP) (Neg) U Amphetamin/Meth Scrn (Neg) MDMA (Ecstasy) Screen (Neg) U Benzodiazepines Scrn (Neg) Ur Cocaine Metabolite (Neg) U Marijuana (THC) Screen (Neg) Ethyl Alcohol mg/dL < 3.0 (0-3) mg/dl 11/20/19 11/20/19 11/20/19 Range/Units 18:40 18:40 18:40 WBC (4.8-10.8) K/uL RBC (4.2-5.4) M/uL Hgb (12.0-16.0) g/dL Hct (37-47) % MCV (80-100) fL MCH (25-34) pg MCHC (32-36) g/dL RDW Std Deviation (36.4-46.3) fL RDW Coeff of Mary (11.5-14.5) % Plt Count (130-400) K/uL MPV (7.4-10.4) fL Immature Gran % (Auto) % Neut % (Auto) % Lymph % (Auto) % George % (Auto) % Eos % (Auto) % Baso % (Auto) % Immature Gran # (Auto) (0.00-0.02) K/uL Neut # (Auto) (1.4-6.5) K/uL Lymph # (Auto) (1.2-3.4) K/uL George # (Auto) (0.11-0.59) K/uL Eos # (Auto) (0-0.5) K/uL Baso # (Auto) (0-0.2) K/uL Sodium (136-145) mmol/L Potassium (3.5-5.1) mmol/L Chloride (98-107) mmol/L Carbon Dioxide (21-32) mmol/L Anion Gap (3-11) BUN (7-18) mg/dl Creatinine (0.6-1.2) mg/dl Est Cr Clr Drug Dosing ml/min Est GFR ( Amer) Est GFR (Non-Af Amer) BUN/Creatinine Ratio Glucose (70-99) mg/dl Osmolality (280-300) mOsm/kg Calcium (8.5-10.1) mg/dl Magnesium (1.8-2.4) mg/dl Total Bilirubin (0.2-1) mg/dl AST (15-37) U/L ALT (12-78) U/L Alkaline Phosphatase (45-117) U/L Total Protein (6.4-8.2) gm/dl Albumin (3.4-5.0) gm/dl Globulin (2.5-4.0) gm/dl Albumin/Globulin Ratio (0.9-2) TSH (0.300-4.500) uIu/ml Urine Color Yellow Urine Appearance Cloudy A (Clear) Urine pH 8.0 H (4.5-7.5) Ur Specific Bivins 1.004 (1.000-1.030) Urine Protein Negative (Negative) Urine Glucose (UA) Negative (Negative) Urine Ketones Negative (Negative) Urine Blood Negative (Negative) Urine Nitrite Negative (Negative) Urine Bilirubin Negative (Negative) Urine Urobilinogen Negative (Negative) Ur Leukocyte Esterase 1+ H (Negative) Urine WBC (Auto) 5-10 H (0-5) /hpf Urine RBC (Auto) 0-4 (0-4) /hpf U Hyaline Cast (Auto) 0 (0-5) /lpf U Epithel Cells (Auto) 5-10 H (0-5) /lpf Urine Bacteria (Auto) 2+ H (Negative) Urine Osmolality (500-800) mOsm/kg Urine Sodium 25 mmol/L Urine Potassium < 1.0 mmol/L Urine Chloride 12 mmol/L Salicylates (2.8-20) mg/dl Urine Opiates Screen Neg (Neg) Ur Methadone, Qual Neg (Neg) Acetaminophen (10-30) ug/ml Urine Barbiturates Neg (Neg) Ur Phencyclidine (PCP) Neg (Neg) U Amphetamin/Meth Scrn Neg (Neg) MDMA (Ecstasy) Screen Neg (Neg) U Benzodiazepines Scrn Neg (Neg) Ur Cocaine Metabolite Neg (Neg) U Marijuana (THC) Screen Neg (Neg) Ethyl Alcohol mg/dL (0-3) mg/dl 11/20/19 Range/Units 18:40 WBC (4.8-10.8) K/uL RBC (4.2-5.4) M/uL Hgb (12.0-16.0) g/dL Hct (37-47) % MCV (80-100) fL MCH (25-34) pg MCHC (32-36) g/dL RDW Std Deviation (36.4-46.3) fL RDW Coeff of Mary (11.5-14.5) % Plt Count (130-400) K/uL MPV (7.4-10.4) fL Immature Gran % (Auto) % Neut % (Auto) % Lymph % (Auto) % George % (Auto) % Eos % (Auto) % Baso % (Auto) % Immature Gran # (Auto) (0.00-0.02) K/uL Neut # (Auto) (1.4-6.5) K/uL Lymph # (Auto) (1.2-3.4) K/uL George # (Auto) (0.11-0.59) K/uL Eos # (Auto) (0-0.5) K/uL Baso # (Auto) (0-0.2) K/uL Sodium (136-145) mmol/L Potassium (3.5-5.1) mmol/L Chloride (98-107) mmol/L Carbon Dioxide (21-32) mmol/L Anion Gap (3-11) BUN (7-18) mg/dl Creatinine (0.6-1.2) mg/dl Est Cr Clr Drug Dosing ml/min Est GFR ( Amer) Est GFR (Non-Af Amer) BUN/Creatinine Ratio Glucose (70-99) mg/dl Osmolality (280-300) mOsm/kg Calcium (8.5-10.1) mg/dl Magnesium (1.8-2.4) mg/dl Total Bilirubin (0.2-1) mg/dl AST (15-37) U/L ALT (12-78) U/L Alkaline Phosphatase (45-117) U/L Total Protein (6.4-8.2) gm/dl Albumin (3.4-5.0) gm/dl Globulin (2.5-4.0) gm/dl Albumin/Globulin Ratio (0.9-2) TSH (0.300-4.500) uIu/ml Urine Color Urine Appearance (Clear) Urine pH (4.5-7.5) Ur Specific Bivins (1.000-1.030) Urine Protein (Negative) Urine Glucose (UA) (Negative) Urine Ketones (Negative) Urine Blood (Negative) Urine Nitrite (Negative) Urine Bilirubin (Negative) Urine Urobilinogen (Negative) Ur Leukocyte Esterase (Negative) Urine WBC (Auto) (0-5) /hpf Urine RBC (Auto) (0-4) /hpf U Hyaline Cast (Auto) (0-5) /lpf U Epithel Cells (Auto) (0-5) /lpf Urine Bacteria (Auto) (Negative) Urine Osmolality 44 L (500-800) mOsm/kg Urine Sodium mmol/L Urine Potassium mmol/L Urine Chloride mmol/L Salicylates (2.8-20) mg/dl Urine Opiates Screen (Neg) Ur Methadone, Qual (Neg) Acetaminophen (10-30) ug/ml Urine Barbiturates (Neg) Ur Phencyclidine (PCP) (Neg) U Amphetamin/Meth Scrn (Neg) MDMA (Ecstasy) Screen (Neg) U Benzodiazepines Scrn (Neg) Ur Cocaine Metabolite (Neg) U Marijuana (THC) Screen (Neg) Ethyl Alcohol mg/dL (0-3) mg/dl Imaging Data Radiologist's Impression: CAT scan of the abdomen is pending ECG Data Attestation: I personally reviewed and interpreted this ECG as follows: Indication: + toxicologic Rate (beats per minute): 77 Rhythm: + normal sinus and + other (poor baseline) ECG Intervals/blocks: + Normal QRS, + Normal QT and + Normal OK ECG [place]: + Normal ECG Findings: + Other (Nonspecific T wave nods) Comparison ECG Date: from (08/20/19) Change: no significant change Blood Pressure Blood Pressure Findings: Normal blood pressure MDM Narrative This patient comes in as described above. She was placed in room B6. The patient comes in after having constipation. She has a normal neurologic exam she also schizophrenia is not taking her medications. I did order acute abdominal series as well as blood work and EKG. She was reassessed frequently. He was hydrated with IV normal saline. Her electrolytes came back significantly abnormal with a potassium of 2.3. This was treated with IV potassium. Her sodium was also low at 121. she was given IV hydration with normal saline. It has also ordered. She has no white count or fever to suggest infection. She has no significant anemia. I did order CAT scan to rule out any bowel obstruction or other process which is pending at this time. I have consulted the [facility] hospitalist to see her in the ER for these measures as I do think she will need to be admitted to replete her electrolytes and also get started back on her mental health/schizophrenic medication. Impression & Plan Hyponatremia, Paranoid schizophrenia, Constipation, Hypokalemia, Nausea Discharge Plan Visit Data Chief Complaint: Constipation Stated Complaint: CONSTIPATION, DIZZINESS, HEADACHE, VOMITING, ED Provider: Juan Soto Discharge Problem: Hyponatremia, Paranoid schizophrenia, Constipation, Hypokalemia, Nausea Patient Disposition: Admitted As Inpatient Discharge Instructions Interventions: ED Discharge Assessment Last Done: 11/20/19 20:00 Forms Stand Alone Forms: [facility] Prescriptions Prescriptions: No Action esomeprazole magnesium [Nexium] 20 mg Capsule,Delayed Release(Dr/Ec) 20 mg PO QAM RF: 0 magnesium hydroxide [Milk of Magnesia] 400 mg/5 mL Suspension 15 ml PO DAILY PRN (Reason: Constipation) RF: 0 potassium chloride 20 mEq tablet extended release 20 meq PO QAM PRN (Reason: Vomiting) RF: 0 Referrals Referrals: Nathan Middleton MD [Primary Care Provider] - Discharge Problem: Constipation Qualifiers: Constipation type: unspecified constipation type Qualified Code(s): K59.00 - Constipation, unspecified
[2019-11-20] MEDS ORDERED: SODIUM CHLORIDE 0.9% 1000ML 1,000 ML IV SCH (16:15)
[2019-11-20 17:01] LABS: Alanine Aminotransferase 11 U/L (12-78); Albumin Level 3.5 gm/dl (3.4-5.0); Aspartate Aminotransferase 19 U/L (15-37); Blood Urea Nitrogen < 1 mg/dl (7-18); Calcium 9.1 mg/dl (8.5-10.1); Carbon Dioxide 30 mmol/L (21-32); Chloride 81 mmol/L (98-107); Creatinine Clr Calc Pharmacy 106.1 ml/min; Est GFR (Non-African American) 110.4; Glucose 90 mg/dl (70-99); Potassium 2.3 mmol/L (3.5-5.1); Sodium 121 mmol/L (136-145)
[2019-11-20 17:13] LABS: Acetaminophen < 2 ug/ml (10-30); Salicylate < 1.7 mg/dl (2.8-20)
[2019-11-20 17:17] LABS: Albumin Globulin Ratio 1.3 (0.9-2); Alkaline Phosphatase 70 U/L (45-117); Bilirubin,Total 0.8 mg/dl (0.2-1); Globulin 2.7 gm/dl (2.5-4.0); Thyroid Stimulating Hormone 0.451 uIu/ml (0.300-4.500); Total Protein 6.2 gm/dl (6.4-8.2)
[2019-11-20] MEDS: POTASSIUM CHLORIDE / WTR 10 MEQ/100 ML PLCT IV SCH ×2 (17:42→19:45)
[2019-11-20 17:55] LABS: Basophils # (auto) 0.01 K/uL (0-0.2); Basophils % (auto) 0.1 %; Eosinophils # (auto) 0.05 K/uL (0-0.5); Eosinophils % (auto) 0.7 %; Hemoglobin 12.4 g/dL (12.0-16.0); Immature Granulocytes # (auto) 0.01 K/uL (0.00-0.02); Immature Granulocytes % (auto) 0.1 %; Lymphocytes # (auto) 2.63 K/uL (1.2-3.4); Lymphocytes % (auto) 38.6 %; Mean Corpuscular Hemoglobin 30.7 pg (25-34); Mean Corpuscular Hgb Conc 36.5 g/dL (32-36); Mean Corpuscular Volume 84.2 fL (80-100); Mean Platelet Volume 8.7 fL (7.4-10.4); Monocytes # (auto) 0.75 K/uL (0.11-0.59); Neutrophils # (auto) 3.37 K/uL (1.4-6.5); Neutrophils % (auto) 49.5 %; Platelet Count 267 K/uL (130-400); RDW Coefficient of Variation 11.5 % (11.5-14.5); RDW Standard Deviation 35.5 fL (36.4-46.3); Red Blood Count 3.74 M/uL (4.2-5.4); White Blood Count 6.82 K/uL (4.8-10.8)
[2019-11-20 19:02] LABS: Appearance Urine Cloudy (Clear); Bilirubin Urine Negative (Negative); Blood Urine Negative (Negative); Color Urine Yellow; Glucose Urine UA Negative (Negative); Ketones Urine Negative (Negative); Leukocyte Esterase Urine 1+ (Negative); Nitrite Urine Negative (Negative); Protein Urine Negative (Negative); Specific Gravity Urine 1.004 (1.000-1.030); Urobilinogen Urine Negative (Negative)
[2019-11-20 19:15] LABS: Bacteria Urine Automated 2+ (Negative); Cast Urine Automated 0 /lpf (0-5); RBC Urine Automated 0-4 /hpf (0-4)
[2019-11-20 19:39] LABS: Urine Chloride 12 mmol/L; Urine Potassium < 1.0 mmol/L; Urine Sodium 25 mmol/L
[2019-11-20 19:46] LABS: Amphetamines+Metham, Urine Neg (Neg); Barbiturates, Urine Neg (Neg); Benzodiazepine, Urine Neg (Neg); Cocaine, Urine Neg (Neg); MDMA (Ecstacy), Urine Neg (Neg); Methadone, Urine Neg (Neg); Opiate, Urine Neg (Neg); Phencyclidine, Urine Neg (Neg)
[2019-11-20] MEDS: POTASSIUM CHLORIDE 20 MEQ TABCR PO SCH ×2 (19:46→23:58)
--- NOTE | 2019-11-20 19:51 | History & Physical Report ---
Date of Service November 20, 2019 Assessment & Plan (1) Hyponatremia: -Admit to [facility] with telemetry -Patient presenting to the ER with reports of constipation, nausea, vomiting -In the ED, Na+ 121 (baseline seems to be in the high 120s-low 130s) -Likely hypovolemic hyponatremia in the setting of poor p.o. intake and vomiting -Urine and serum osmolality, urine electrolytes -Received 1 L NSS in the ED, will start NSS with 20meq KCl at 100 cc/hour, recheck labs at 2200 -Nephrology consult, case discussed Dr. 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 as well -Further recommendations after CT ABD/pelvis (5) Paranoid schizophrenia: -Patient self stopped Risperdal and Geodon about 1 month ago as she felt as though is contributing to her constipation -No active suicidal or homicidal ideations, denies auditory or visual hallucinations -Psychiatric consult (6) Urinary retention: -Has chronic Montes in place -UA suggest possible UTI however patient denies any symptoms and is afebrile without leukocytosis, likely asymptomatic bacteriuria/colonization -Hold on antibiotics for now (7) DVT prophylaxis: -SQ Lovenox History of Present Illness Chief Complaint: Constipation Primary Care Provider: Nathan Middleton MD 59-year-old female who presents the ED for evaluation of constipation. Patient with a longstanding history of chronic constipation. Follows closely with [facility]. Was seen in the ED on 11/05/2019 for complaints of constipation. It was noted the patient was abusing laxatives at that time. She was instructed to stop all laxatives. Patient reports that she feels as though her psychiatric medications, Risperdal and Geodon, are contributing to her constipation therefore she self stopped his medications about 1 month ago. Patient reports she has not had a bowel movement the past 5 days. She reports she has been using enemas without any relief. She has been prescribed Motegrity in the past however there have been issues with insurance coverage. She has not been taking it routinely however did take a dose this morning of pill she had leftover. She reports she has had nausea and several episodes of vomiting. She denies hematemesis or coffee-ground emesis. Does not seem to be having much abdominal pain. Denies fevers and chills. No chest pain or shortness of breath. Denies lightheadedness, dizziness, diaphoresis, syncopal events. She has a chronic Montes catheter in place which is been draining without any problem. Since patient has been off of her psychiatric medications, she denies any visual or auditory hallucinations. She denies any active suicidal or homicidal thoughts however does report she is "fed up "with her medical problems. In the ED, sodium level is 121, potassium 2.3. Patient was given 1 L NSS and 2 K+ riders. Allergies Allergy/AdvReac Type Severity Reaction Status Date / Time oxybutynin Allergy Unknown Unknown Verified 11/20/19 16:16 povidone-iodine Allergy Unknown Rash Verified 11/20/19 16:16 [From Betadine] soap [From Betadine] Allergy Unknown Rash Verified 11/20/19 16:16 Home Medications Home Medications Medication Instructions Recorded Confirmed Type esomeprazole magnesium [Nexium] 20 mg PO QAM 05/22/18 11/20/19 History magnesium hydroxide [Milk of 15 ml PO DAILY PRN 07/26/18 11/20/19 History Magnesia] potassium chloride 20 meq PO QAM PRN 11/05/19 11/20/19 History Past Med/Surg History Medical History Anxiety (Acute) Constipation (Acute) Hemorrhoids (Acute) History of electrolyte imbalance Hyponatremia and hypokalemia Paranoid schizophrenia (Chronic) Urinary retention (Acute) With chronic Montes Uterine cancer (Resolved) Surgical History H/O hemorrhoidectomy Hx of hysterectomy Family History Other Cancer Diabetes Gallbladder disease Heart disease Hypertension Kidney disease Kidney stone Lung disease Seizures Social History Preferred Language: Portuguese Communication Ability: Effective Packaging 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 Required: No Beliefs That Will Affect Care: None marital status: Current Living Situation: Alone Current Living Situation Comment: Apartment Complex Other Information That Helps Us Care for You: Yes (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[employer]) Feels Safe at Home: Yes Safety Concerns: Feels Safe At This Time Smoking Status: Never smoker Tobacco Type: smokeless tobacco ; Cigarettes Per Day: Pt uses one "zyn" patch daily, states it is nicotine, not tobacco ; Do You Dip or Chew Tobacco: No ; Second Hand Exposure: No ; Tobacco Cessation Education Requested by Patient: No Hx Alcohol Use: No Hx Substance Use: No Review of Systems Review of Systems: ROS per HPI, all other systems reviewed and negative Physical Exam Constitutional: WD/WN, vitals as above Eyes: PERRL, conjunctivae normal, anicteric sclerae ENMT: external ear and nose normal, oropharynx normal Respiratory: normal respiratory effort, lungs clear to auscultation Cardiovascular: Rate/Rhythm: regular rate and regular rhythm Vessels: normal peripheral pulses Extremities: no edema Gastrointestinal (Abdomen): normal bowel sounds, soft, nontender, no hepatosplenomegaly Musculoskeletal: no cyanosis or clubbing, extremities motor strength 5/5 Skin: no rashes, warm and dry Neurologic: PERRL, EOMI, accommodation nl, no face palsy, no dysarthria Psychiatric: Orientation: alert and oriented x 3 Affect: + flat affect Genitourinary: Montes in place draining clear yellow urine Results & Data Vital Signs (Past 12 Hours) Vital Signs Temp Pulse Resp BP Pulse Ox 11/20/19 18:31 84 24 96 11/20/19 18:30 85 30 H 151/99 H 98 11/20/19 18:01 77 22 129/85 98 11/20/19 18:00 78 19 98 11/20/19 17:32 77 22 98 11/20/19 17:31 78 21 121/74 98 11/20/19 17:30 80 27 H 99 11/20/19 17:01 78 22 99 11/20/19 17:00 81 18 153/85 H 98 11/20/19 16:30 78 21 99 11/20/19 16:13 77 20 133/115 H 97 11/20/19 16:01 77 20 98 11/20/19 16:00 81 23 133/115 H 98 11/20/19 15:31 82 24 96 11/20/19 15:30 81 20 155/99 H 91 11/20/19 15:29 79 16 96 11/20/19 15:24 36.8 C 82 20 142/93 H 98 11/20/19 15:16 86 16 142/93 H 99 Laboratory Results Short CBC 11/20/19 Range/Units 16:31 WBC 6.82 (4.8-10.8) K/uL Hgb 12.4 (12.0-16.0) g/dL Hct 34.0 L (37-47) % Plt Count 267 (130-400) K/uL BMP 11/20/19 16:31 Sodium 121 L Potassium 2.3 L* Chloride 81 L Carbon Dioxide 30 BUN < 1 L Creatinine 0.45 L Glucose 90 Calcium 9.1 Liver Function 11/20/19 Range/Units 16:31 Total Bilirubin 0.8 (0.2-1) mg/dl AST 19 (15-37) U/L ALT 11 L (12-78) U/L Alkaline Phosphatase 70 (45-117) U/L Albumin 3.5 (3.4-5.0) gm/dl Urine 11/20/19 Range/Units 18:40 Urine Color Yellow Urine Appearance Cloudy A (Clear) Urine pH 8.0 H (4.5-7.5) Ur Specific [place] 1.004 (1.000-1.030) Urine Protein Negative (Negative) Urine Glucose (UA) Negative (Negative) Code Status & VTE Plan VTE Prophylaxis Plan VTE Prophylaxis will be ordered: Yes Supervising Physician Co-Signing Physician Notes Attending Addendum: Delayed entry date of service noted above care coordinated with DOMINIK richmond please refer to her notes for full details, I agree with her notes patient seen and examined, records reviewed by myself as well on exam, patient seen resting in bed, not in distress Reports nausea, mild abdominal discomfort no other symptoms VS noted and reviewed oriented x3 , not in distress, speaks in sentences with no effort nor accessory muscle use normal rate, regular rhythm, no murmurs clear breath sounds bilaterally non distended, soft, nontender no bipedal edema, erythema, warmth no neuro deficits WBC 6.8 Crea 0.45 ASSESSMENT AND PLAN Hyponatremia Likely secondary to volume depletion Neurology consulted IV NSS as ordered Ileus Chronic constipation N.p.o., IV fluids, GI consult other diagnoses and plan of care as per OUMAR richmond's notes Raúl Montes MD (1) Constipation Constipation type: unspecified constipation type Qualified Code(s): K59.00 - Constipation, unspecified
--- NOTE | 2019-11-20 20:58 | CT Scan Report ---
CT SCAN OF THE ABDOMEN AND PELVIS WITHOUT CONTRAST CLINICAL HISTORY: Abdominal pain and distention COMPARISON STUDY: 03/04/2019 TECHNIQUE: CT scan of the abdomen and pelvis was performed from the lung bases to the proximal femurs . Images are reviewed in the axial, sagittal, and coronal planes. IV contrast was not administered fo r this examination. A dose lowering technique was utilized adhering to the principles of ALARA. CT DOSE: 336.71 mGy.cm FINDINGS: Lower chest: There is a hiatal hernia. There are no pleural effusions. Liver: The unenhanced liver is normal in size, contour, and attenuation. There is no intrahepatic stephanie iary ductal dilatation. Gallbladder: Unremarkable. Spleen: Normal in size and attenuation. Pancreas: Unremarkable. Adrenal glands: Unremarkable. Kidneys: No renal, ureteral, or bladder calculi identified. There is a punctate renal cortical calcif ication within the lower pole. There is minimal fullness the right renal collecting system Bowel: There is diffuse gaseous distention of both large and small bowel loops. There are no transiti on zones to indicate bowel obstruction. There is no pneumatosis. Calcific densities as visualized nilson ge #[id number], likely represent enteric contents. Peritoneum: There is no intraperitoneal free air or abdominal ascites. Vasculature: The abdominal aorta is normal in course and caliber. Adenopathy: None. Pelvic viscera: There is an indwelling Montes catheter. There is air within the bladder likely iatroge bety. There is probable mild bladder wall thickening. The patient appears be status post a prior hyste rectomy. Skeletal structures: No destructive osseous lesions are seen. IMPRESSION: 1. Examination limited by the lack of intravenous and oral contrast 2. Mild distention of both large and small bowel loops without evidence of a transition zone. The fin dings favor an ileus 3. No renal ureteral or bladder calculi identified ACT 112: Negative or not required by law. Electronically signed by: Mendoza Coley M.D. 11/20/2019 8:56 PM
[2019-11-20] MEDS ORDERED: ACETAMINOPHEN 325 MG TAB PO PRN (21:15)
[2019-11-20] MEDS ORDERED: MAGNESIUM SULFATE / D5W 1 GM/100 ML BAG IV ONE (21:30)
[2019-11-20] MEDS ORDERED: NSS + 20MEQ KCL 20 MEQ/1,000 ML BAG IV SCH (21:30)
[2019-11-20] MEDS ORDERED: D5NSS + 20MEQ KCL 20 MEQ/1,000 ML BAG IV SCH (22:00)
[2019-11-20] MEDS ORDERED: bisacodyL 10 MG SUPP PR STA (22:05)
[2019-11-20] MEDS: ENOXAPARIN INJ 40 MG/0.4 ML SYR SQ SCH (22:07)
[2019-11-20] MEDS: PROMETHAZINE HCL 12.5 MG in SODIUM CHLORIDE 0.9% 50 ML IV PRN (22:24)
[2019-11-20 22:26] LABS: Blood Urea Nitrogen < 1 mg/dl (7-18); Calcium 8.8 mg/dl (8.5-10.1); Carbon Dioxide 30 mmol/L (21-32); Chloride 100 mmol/L (98-107); Creatinine Clr Calc Pharmacy 78.8 ml/min; Est GFR (African American) 119.1; Est GFR (Non-African American) 102.8; Glucose 93 mg/dl (70-99); Potassium 2.8 mmol/L (3.5-5.1); Sodium 135 mmol/L (136-145)
[2019-11-20] MEDS ORDERED: POTASSIUM CHLORIDE 40 MEQ in DEXTROSE 5% 1,000 ML IV SCH (23:30)
[2019-11-20] MEDS ORDERED: POTASSIUM CHLORIDE 20 MEQ/15 ML UDC PO STA (23:56)
[2019-11-21] MEDS ORDERED: MAGNESIUM SULFATE / D5W 1 GM/100 ML BAG IV ONE
--- NOTE | 2019-11-21 00:23 | Communication Note ---
Date of Service: November 21, 2019
[2019-11-21] MEDS ORDERED: DEXTROSE 5% 1,000 ML IV SCH ×2 (00:30→05:00)
[2019-11-21] MEDS: POTASSIUM CHLORIDE / WTR 10 MEQ/100 ML PLCT IV SCH ×5 (00:51→05:03)
[2019-11-21 04:32] LABS: Blood Urea Nitrogen < 1 mg/dl (7-18); Carbon Dioxide 27 mmol/L (21-32); Chloride 101 mmol/L (98-107); Creatinine Clr Calc Pharmacy 80.3 ml/min; Est GFR (African American) 119.8; Est GFR (Non-African American) 103.4; Glucose 112 mg/dl (70-99); Potassium 4.1 mmol/L (3.5-5.1); Sodium 131 mmol/L (136-145)
[2019-11-21 04:46] LABS: Hematocrit (blood only) 29.2 % (37-47); Hemoglobin 10.8 g/dL (12.0-16.0); Mean Corpuscular Volume 86.6 fL (80-100); Platelet Count 243 K/uL (130-400); Red Blood Count 3.37 M/uL (4.2-5.4); White Blood Count 4.27 K/uL (4.8-10.8)
[2019-11-21] MEDS: PANTOprazole 40 MG TAB PO SCH (08:35)
--- NOTE | 2019-11-21 09:37 | Hospitalist Progress Note ---
Date of Service delayed entry date of service below November 21, 2019 Assessment & Plan (1) Hyponatremia: -Likely hypovolemic hyponatremia in the setting of poor p.o. intake and vomiting resolved with IV fluids -Nephrology consult, case discussed Dr. Hawkins (2) Hypokalemia: (3) Hypomagnesemia: monitor and replace (4) Constipation: -CT ABD/pelvis: Ileus - GI consulted NPO, IV fluids, replace electrolytes monitor closely (5) Paranoid schizophrenia: -Patient self stopped Risperdal and Geodon about 1 month ago as she felt as though is contributing to her constipation -No active suicidal or homicidal ideations, denies auditory or visual hallucinations -Psychiatric consult--> Olanzapine ordered monitor (6) Urinary retention: -Has chronic Montes in place -UA suggest possible UTI however patient denies any symptoms and is afebrile without leukocytosis, likely asymptomatic bacteriuria/colonization - asymptomatic, afebrile no antibiotics for now, monitor (7) DVT prophylaxis: -SQ Lovenox Admission and Anticipated Discharge Date Admission Date: November 20, 2019 Subjective ff up for ileus, history of chronic constipation not in distress but anxious requesting for enema reports abdominal discomfort, and mild nausea minimal flatus no other symptoms Review of Systems Review of Systems: All systems reviewed & are unremarkable except as noted in HPI & below Physical Exam Physical Exam: General- oriented x 3, not in distress, speaks in sentences with no effort or accessory muscle use Eyes- anicteric Neck- no JVD Lungs- clear BS BL no rales Heart- normal rate, regular rhythm; no murmurs Abdomen- normal bowel sounds, nondistended, soft, nontender Extremities- no pretibial edema, no calf tenderness Neuro- alert, oriented x 3; no gross focal neurologic deficits Skin- warm & dry Results & Data ([facility]) Vital Signs (Past 12 Hours) Vital Signs Temp Pulse Pulse Resp BP Pulse Ox 11/21/19 06:29 36.8 C 83 19 106/72 98 11/21/19 04:41 36.7 C 79 20 106/75 97 11/21/19 00:36 37.0 C 72 18 102/66 97 11/21/19 00:00 75 11/20/19 21:39 36.7 C 80 16 123/81 98 Laboratory Results all noted and reviewed (1) Constipation Constipation type: unspecified constipation type Qualified Code(s): K59.00 - Constipation, unspecified
[2019-11-21] MEDS ORDERED: POTASSIUM CHLORIDE 20 MEQ in DEXTROSE 5% 1,000 ML IV ONE (10:00)
--- NOTE | 2019-11-21 10:03 | XRay Report ---
XR KUB/Abdomen 1 view CLINICAL HISTORY: ff up ileus COMPARISON STUDY: 11/05/2019 FINDINGS: Unchanged generalized ileus. No evidence for true obstructive change. IMPRESSION: Generalized nonobstructive ileus. No change from the prior exam. ACT 112: Negative or not required by law. The above report was generated using voice recognition software. It may contain grammatical, syntax or spelling errors. Electronically signed by: Gomez Rahman M.D. 11/21/2019 10:02 AM
[2019-11-21] MEDS: POTASSIUM CHLORIDE 20 MEQ in DEXTROSE 5% 1,000 ML IV SCH ×3 (11:22→19:33)
--- NOTE | 2019-11-21 11:47 | Electrocardiogram Report ---
Test Reason : Blood Pressure : / mmHG Vent. Rate : 077 BPM Atrial Rate : 077 BPM P-R Int : 146 ms QRS Dur : 088 ms QT Int : 440 ms P-R-T Axes : 059 077 044 degrees QTc Int : 497 ms Poor data quality, interpretation may be adversely affected Normal sinus rhythm Normal ECG When compared with ECG of 20-AUG-2019 08:05, No significant change Confirmed by Guanaco Otero ([id number]) on 11/21/2019 11:47:10 AM Referred By: REFERRED SELF Confirmed By:Guanaco Otero
[2019-11-21] MEDS ORDERED: OLANZapine 10 MG TAB PO STA (13:02)
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
--- NOTE | 2019-11-21 14:07 | Gastrointestinal Consultation ---
Date of Consultation November 21, 2019 Assessment & Plan (1) Constipation: (2) Ileus: recommendations: 1. NPO 2. IVFs, supportive care 3. replete lytes, K>4 and Mg>2 4. serial KUBs daily 5. miralax 1-2 times per day for now thank you for allowing me to participate in the care of this patient. History of Present Illness Attending Physician: Raúl Montes MD 59 yo female with hx chronic constipation for whom GI is consulted. CT scan and KUB note ileus, nonobstructive. She is on linzess and motegrity as an outpatient and notes significant constipation without her medications usually. Currently denies any abdominal pains but feels very constipated. No n/v. Received enema today with small stool output. Labs reviewed, anemia noted. Allergies Allergy/AdvReac Type Severity Reaction Status Date / Time oxybutynin Allergy Unknown Unknown Verified 11/20/19 16:16 povidone-iodine Allergy Unknown Rash Verified 11/20/19 16:16 [From Betadine] soap [From Betadine] Allergy Unknown Rash Verified 11/20/19 16:16 Home Medications Home Medications Medication Instructions Recorded Confirmed Type esomeprazole magnesium [Nexium] 20 mg PO QAM 05/22/18 11/20/19 History magnesium hydroxide [Milk of 15 ml PO DAILY PRN 07/26/18 11/20/19 History Magnesia] potassium chloride 20 meq PO QAM PRN 11/05/19 11/20/19 History Patient History Medical History Anxiety (Acute) Hemorrhoids (Acute) Paranoid schizophrenia (Chronic) Urinary retention (Acute) Uterine cancer (Resolved) Surgical History H/O hemorrhoidectomy Hx of hysterectomy Family History Other Cancer Diabetes Gallbladder disease Heart disease Hypertension Kidney disease Kidney stone Lung disease Seizures Social History Preferred Language: Nepali Communication Ability: Effective Unit Reactor Operator Required: No Beliefs That Will Affect Care: None Current Living Situation: Alone Current Living Situation Comment: Apartment Complex Other Information That Helps Us Care for You: Yes (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[employer]) Feels Safe at Home: Yes Safety Concerns: Feels Safe At This Time Smoking Status: Never smoker Tobacco Type: smokeless tobacco ; Cigarettes Per Day: Pt uses one "zyn" patch daily, states it is nicotine, not tobacco ; Do You Dip or Chew Tobacco: No ; Second Hand Exposure: No ; Tobacco Cessation Education Requested by Patient: No Hx Alcohol Use: No Hx Substance Use: No Review of Systems Constitutional: no fever, no chills and no weight loss Eyes: as per Subjective / HPI Ear, Nose, Mouth, Throat: as per Subjective / HPI Respiratory: no dyspnea and no dyspnea on exertion Cardiovascular: no chest pain and no palpitations Gastrointestinal: as per Subjective / HPI Musculoskeletal: no joint pain and no swelling Integumentary: no rash and no lesions Neurologic: no numbness and no paresthesia Psychiatric: no depression and no anxiety Endocrine: no fatigue Hematologic / Lymphatic: no easy bleeding and no easy bruising Physical Exam Constitutional: WD/WN, vitals as above Eyes: EOM intact bilaterally Neck: normal visual inspection Respiratory: normal respiratory effort, lungs clear to auscultation Cardiovascular: RRR, no murmur, no edema Gastrointestinal (Abdomen): Inspection/Auscultation: abdomen normal to inspection; abdomen not distended Percussion/Palpation: abdomen soft; abdomen nontender and no hepatosplenomegaly Musculoskeletal: Extremities: no cyanosis Gait: normal gait Skin: no rashes, warm and dry Neurologic: moves all extremities Psychiatric: A+Ox3, euthymic affect Results & Data ([facility]) Vital Signs (Past 12 Hours) Vital Signs Temp Pulse Pulse Resp BP Pulse Ox 11/21/19 11:31 36.9 C 85 20 114/80 98 11/21/19 09:43 82 11/21/19 06:29 36.8 C 83 19 106/72 98 11/21/19 04:41 36.7 C 79 20 106/75 97 PG Care Time/CCT Total # of Minutes Spent Total Time Spent with Patient: Total time spent is greater than 50% in coordination of care (as documented) at patient's floor/unit and/or counseling patient: Coding Level of Care Code 24183 Inpt Consult Level 3 Diagnoses Constipation K59.00 Constipation type: unspecified constipation type Ileus K56.7 (1) Constipation Constipation type: unspecified constipation type Qualified Code(s): K59.00 - Constipation, unspecified
[2019-11-21] MEDS: POLYETHYLENE (MIRALAX) 17 GM PACK PO SCH (16:55)
[2019-11-21] MEDS: FAMOTIDINE 20 MG in SYRINGE 3 ML IV SCH (17:15)
[2019-11-21 18:02] LABS: Blood Urea Nitrogen < 1 mg/dl (7-18); Calcium 8.6 mg/dl (8.5-10.1); Carbon Dioxide 28 mmol/L (21-32); Chloride 101 mmol/L (98-107); Creatinine Clr Calc Pharmacy 88.1 ml/min; Est GFR (African American) 122.8; Glucose 113 mg/dl (70-99); Potassium 3.6 mmol/L (3.5-5.1); Sodium 133 mmol/L (136-145)
--- NOTE | 2019-11-21 18:04 | Nephrology Consultation ---
Date of Consultation November 21, 2019 Assessment & Plan (1) Hyponatremia: Senting sodium 121 at 1630 on November 19. Corrected too quickly with fluid resuscitation to 135 a few hours later. Have been working ever since to lower her sodium to the mid high 120s and keep it there at least this evening. Her initial urine studies suggest polydipsia. -Currently on D5 water with 20 mEq/L potassium: Repeat basic metabolic panel for this afternoon is pending -will adjust IVF based on this result, remembering that she remains n.p.o. at this time -maintain eukalemia, w/o which Na will be worse in serum -She may need to establish with nephrology after discharge for electrolyte monitoring Present on Admission?: Yes (2) Hypokalemia: May relate in part to heavy laxative use >> this would also explain anion gap metabolic acidosis she frequently has including on presentation Recheck pending Present on Admission?: Yes (3) Hypomagnesemia: Resolved/improved with supplementation Present on Admission?: Yes (4) Constipation: Presenting with nonobstructive ileus. GI following. Per their recommendations Present on Admission?: Yes History of Present Illness Reason for Consultation: hyponatremia Requesting Physician: Dr Montes Attending Physician: Raúl Montes MD History of Present Illness 59 y/o F whom I'm asked to see for electrolyte disorders above resented to the E R yesterday with complaints of uncontrolled nausea and vomiting and 5 days without a bowel movement: Her presenting sodium was 121 and presenting potassium was 2.3. Past medical history includes paranoid schizophrenia, chronic constipation, chronic urinary retention chronic indwelling Montes, intermittent hyponatremia. Her last outpatient sodium was in August 2019. In March, April, August, sodium values were normal as an outpatient. Prior to this however from spring 2014 through spring 2018, serum sodium was not normal once and ranged widely from 122-132. GI evaluated the patient and findings concerning for nonobstructive ileus in addition to constipation: N.p.o. status and supportive care recommended, including IV fluids and electrolyte repletion. The patient reported to providers that she had stopped her psych meds due to concerns that they worsened her constipation. Psychiatry is following and recommending med changes. The patient had 1 L of normal saline in the ER and th en received normal saline with 20 mEq/L potassium: Her 1630 sodium value of 121 increased to 135 by 2200; potassium improved from 2.3-2.8 in the same timeframe. She had no change in mental status, nausea vomiting, other changes with this change in sodium. I started her on D5 water with 40 mEq/L potassium at 150 mL hourly overnight. These fluids were lowered to 50 mL hourly based on labs this morning. However she had still corrected too fast and I changed her fluids to D5 water with 20 mEq/L potassium at 250 mL hourly through the day. When I evaluated her today at approximately 1400, she was sitting comfortably in bed. She endorsed near bowel cramping and stated to me that her constipation remained unresolved. She denied concerns with the Montes. She denied shortness of breath. No current nausea or vomiting when I saw her. No edema. No no muscle cramping or weakness. Allergies Allergy/AdvReac Type Severity Reaction Status Date / Time oxybutynin Allergy Unknown Unknown Verified 11/20/19 16:16 povidone-iodine Allergy Unknown Rash Verified 11/20/19 16:16 [From Betadine] soap [From Betadine] Allergy Unknown Rash Verified 11/20/19 16:16 Home Medications Home Medications Medication Instructions Recorded Confirmed Type esomeprazole magnesium [Nexium] 20 mg PO QAM 05/22/18 11/20/19 History magnesium hydroxide [Milk of 15 ml PO DAILY PRN 07/26/18 11/20/19 History Magnesia] potassium chloride 20 meq PO QAM PRN 11/05/19 11/20/19 History Patient History Medical History Anxiety (Acute) Constipation (Acute) Hemorrhoids (Acute) History of electrolyte imbalance Hyponatremia and hypokalemia Paranoid schizophrenia (Chronic) Urinary retention (Acute) With chronic Montes Uterine cancer (Resolved) Surgical History H/O hemorrhoidectomy Hx of hysterectomy Family History Other Cancer Diabetes Gallbladder disease Heart disease Hypertension Kidney disease Kidney stone Lung disease Seizures Social History Preferred Language: Faroese Communication Ability: Effective Mental Health Program Specialist Required: No Beliefs That Will Affect Care: None marital status: Current Living Situation: Alone Current Living Situation Comment: Apartment Complex Other Information That Helps Us Care for You: Yes (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) Feels Safe at Home: Yes Safety Concerns: Feels Safe At This Time Smoking Status: Never smoker Tobacco Type: smokeless tobacco ; Cigarettes Per Day: Pt uses one "zyn" patch daily, states it is nicotine, not tobacco ; Do You Dip or Chew Tobacco: No ; Second Hand Exposure: No ; Tobacco Cessation Education Requested by Patient: No Hx Alcohol Use: No Hx Substance Use: No Review of Systems Review of Systems: All systems reviewed & are unremarkable except as noted in HPI & below Physical Exam Constitutional: well developed, + thin and cooperative; no acute distress Eyes: EOM intact bilaterally ENMT: Ears: no external ear abnormality Nose: no external nose abnormality Mouth: + dry oral mucous membranes Neck: no nuchal rigidity Respiratory: normal respiratory effort Auscultation: lungs clear to auscultation bilaterally and + diminished lung sounds Cardiovascular: RRR, no murmur, no edema Gastrointestinal (Abdomen): Inspection/Auscultation: normal bowel sounds Percussion/Palpation: abdomen soft; abdomen nontender Musculoskeletal: Extremities: strength 5/5 throughout Skin: no rashes, warm and dry Neurologic: ramirez, fluent speech, no tremor Psychiatric: Orientation: alert and oriented x 3 Affect: + constricted affect Mood: + anxious mood Genitourinary: Montes with ample light yellow urine Results & Data Vital Signs (Past 12 Hours) Vital Signs Temp Pulse Pulse Resp BP Pulse Ox 11/21/19 15:48 36.7 C 73 17 109/76 99 11/21/19 14:39 36.9 C 69 20 108/69 11/21/19 11:31 36.9 C 85 20 114/80 98 11/21/19 09:43 82 11/21/19 06:29 36.8 C 83 19 106/72 98 Laboratory Results 11/21/19 03:52 -Basic metabolic panel 04 100 today: Sodium 131, potassium 4.1, chloride 101, bicarb 27, BUN less than 1, creatinine 0.6, calcium 8.0, magnesium 2.3 -Urinalysis from last evening: pH 8.0, cloudy yellow urine with a specific gravity of 1004, 2+ bacteria, 5-10 white cells per high-powered field and 1+ leukocyte Estrace. 5-10 epithelial cells per high-powered field all other indices negative. Urine osmolality (sic) 44, urine sodium 25 yesterday afternoon/evening Serum osmolality 244 yesterday afternoon Urine tox screen negative Diagnostic Findings KUB today: Generalized nonobstructive ileus unchanged from prior CT abdomen pelvis Noncon 11/19 Lower chest: There is a hiatal hernia. There are no pleural effusions. Liver: The unenhanced liver is normal in size, contour, and attenuation. There is no intrahepatic biliary ductal dilatation. Gallbladder: Unremarkable. Spleen: Normal in size and attenuation. Pancreas: Unremarkable. Adrenal glands: Unremarkable. Kidneys: No renal, ureteral, or bladder calculi identified. There is a punctate renal cortical calcification within the lower pole. There is minimal fullness the right renal collecting system Bowel: There is diffuse gaseous distention of both large and small bowel loops. There are no transition zones to indicate bowel obstruction. There is no pneumatosis. Calcific densities as visualized image #[id number], likely represent enteric contents. Peritoneum: There is no intraperitoneal free air or abdominal ascites. Vasculature: The abdominal aorta is normal in course and caliber. Adenopathy: None. Pelvic viscera: There is an indwelling Montes catheter. There is air within the bladder likely iatrogenic. There is probable mild bladder wall thickening. The patient appears be status post a prior hysterectomy. Skeletal structures: No destructive osseous lesions are seen. IMPRESSION: 1. Examination limited by the lack of intravenous and oral contrast 2. Mild distention of both large and small bowel loops without evidence of a transition zone. The findings favor an ileus 3. No renal ureteral or bladder calculi identified (1) Constipation Constipation type: unspecified constipation type Qualified Code(s): K59.00 - Constipation, unspecified
[2019-11-21] MEDS ORDERED: LACTATED RINGER'S 1,000 ML IV STA (19:26)
[2019-11-21] MEDS: ENOXAPARIN INJ 40 MG/0.4 ML SYR SQ SCH (21:05)
[2019-11-21] MEDS ORDERED: POTASSIUM CHLORIDE 20 MEQ TABCR PO STA (21:45)
[2019-11-22 07:45] LABS: Blood Urea Nitrogen < 1 mg/dl (7-18); Calcium 9.1 mg/dl (8.5-10.1); Carbon Dioxide 25 mmol/L (21-32); Chloride 104 mmol/L (98-107); Est GFR (African American) 125.3; Est GFR (Non-African American) 108.1; Glucose 81 mg/dl (70-99); Potassium 4.6 mmol/L (3.5-5.1); Sodium 134 mmol/L (136-145)
[2019-11-22] MEDS: POLYETHYLENE (MIRALAX) 17 GM PACK PO SCH (08:32)
[2019-11-22] MEDS: PANTOprazole 40 MG TAB PO SCH (08:32)
[2019-11-22] MEDS: FAMOTIDINE 20 MG in SYRINGE 3 ML IV SCH ×2 (08:51→20:32)
--- NOTE | 2019-11-22 11:30 | XRay Report ---
XR KUB/Abdomen 1 view CLINICAL HISTORY: Ileus. Follow-up study. COMPARISON STUDY: 11/21/2019 FINDINGS: There is persistent gaseous prominence of both large and small bowel loops. The findings ar e again consistent with a generalized ileus. IMPRESSION: No significant change from the preceding study. Generalized ileus pattern. ACT 112: Negative or not required by law. Electronically signed by: Mendoza Coley M.D. 11/22/2019 11:28 AM
--- NOTE | 2019-11-22 12:24 | Electrocardiogram Report ---
Test Reason : Blood Pressure : / mmHG Vent. Rate : 066 BPM Atrial Rate : 066 BPM P-R Int : 142 ms QRS Dur : 078 ms QT Int : 384 ms P-R-T Axes : 075 079 070 degrees QTc Int : 402 ms Normal sinus rhythm Minimal voltage criteria for LVH, may be normal variant Borderline ECG When compared with ECG of 20-NOV-2019 17:20, No significant change Confirmed by Guanaco Otero ([id number]) on 11/22/2019 12:23:42 PM Referred By: REFERRED SELF Confirmed By:Guanaco Otero
--- NOTE | 2019-11-22 13:03 | Gastroenterology Progress Note ---
Date of Service November 22, 2019 Assessment & Plan (1) Ileus: persistent Recs: 1. clear liquid diet today as tolerated 2. serial KUBs daily 3. replete mg >2 and K>4, replete lytes 4. miralax BID supportive care (2) Constipation: Admission and Anticipated Discharge Date Admission Date: November 20, 2019 Subjective KUB unchanged, still with ileus. no bowel movements overnight despite miralax. she is hungry she says, denies pains. afebrile. Review of Systems Constitutional: no fever and no chills Respiratory: no cough, no dyspnea and no dyspnea on exertion Cardiovascular: no chest pain and no dyspnea Gastrointestinal: as per Subjective / HPI Psychiatric: no depression and no anxiety Physical Exam Constitutional: WD/WN, vitals as above Respiratory: normal respiratory effort, lungs clear to auscultation Cardiovascular: RRR, no murmur, no edema Gastrointestinal (Abdomen): normal bowel sounds, soft, nontender, no hepatosplenomegaly Musculoskeletal: no lower extremity edema Psychiatric: A+Ox3, euthymic affect Results & Data Results & Data ([facility]) Vital Signs (Past 12 Hours) Vital Signs Temp Pulse Pulse Resp BP BP Pulse Ox 11/22/19 07:50 60 11/22/19 07:19 36.3 C L 52 L 18 125/81 100 11/22/19 02:53 36.5 C 54 L 18 113/74 99 11/22/19 02:03 63 PG Care Time/CCT Total # of Minutes Spent Total Time Spent with Patient: Total time spent is greater than 50% in coordination of care (as documented) at patient's floor/unit and/or counseling patient: Coding Level of Care Code 92431 Subseq Hosp Care Lvl 3 Diagnoses Ileus K56.7 Constipation K59.00 Constipation type: unspecified constipation type (1) Constipation Constipation type: unspecified constipation type Qualified Code(s): K59.00 - Constipation, unspecified
--- NOTE | 2019-11-22 13:44 | Nephrology Progress Note ---
Date of Service November 22, 2019 Assessment & Plan (1) Hyponatremia: Chronic issue for her. Currently with acceptable control at 134 today. PreSenting sodium 121 at 1630 on November 19. Corrected too quickly with fluid resuscitation to 135 a few hours later. Sodium has remained in the low 130s the past 48 hours, acceptable. Her initial urine studies suggest polydipsia; however her behavior clinically suggests dehydration as does her history and favor this latter etiology. -Currently off of IV fluids and none indicated at this time for electrolyte corrections or other; however she does remain n.p.o. and may need a low rate of maintenance fluid: recommend either D5-1/2NS or LR if clinical needs change -maintain eukalemia, w/o which Na will be worse in serum -daily bmp while in house -I did discuss follow-up in kidney clinic with the patient: She is reluctant and somewhat anxious about transportation and establishing with a new provider. Discharge recommendations as below We will sign off. Please call if questions. Care coordinated with Dr. Montes DISCHARGE RECOMMENDATION (d/c document updated) -basic metabolic panel weekly x 4 weeks to be ordered and reviewed by primary care provider with low threshold for nephrology referral if hyponatremia or hypokalemia or other electrolyte concerns remain (2) Hypokalemia: Resolved. Her tendence to this may relate in part to heavy laxative use >> this would also explain anion gap metabolic acidosis she frequently has including on presentation monitor as above (3) Constipation: Presenting with nonobstructive ileus. GI following. Per their recommendations Admission and Anticipated Discharge Date Admission Date: November 20, 2019 Subjective Complains of ongoing abdominal cramping and inability to defecate; c/o 70 lb wt loss past year (do see in epic 60 lb loss 07/2018-07/2019); denies shortness of breath, weakness. Feels improvement in nausea and vomiting. Review of Systems Review of Systems: All systems reviewed & are unremarkable except as noted in HPI & below Physical Exam Constitutional: well developed, + thin and cooperative; no acute distress Eyes: EOM intact bilaterally ENMT: Ears: no external ear abnormality Nose: no external nose abnormality Mouth: + dry oral mucous membranes Neck: no nuchal rigidity Respiratory: normal respiratory effort Auscultation: lungs clear to auscultation bilaterally and + diminished lung sounds Cardiovascular: RRR, no murmur, no edema Gastrointestinal (Abdomen): Inspection/Auscultation: normal bowel sounds Percussion/Palpation: abdomen soft; abdomen nontender Musculoskeletal: Extremities: strength 5/5 throughout Skin: no rashes, warm and dry Neurologic: Moves all extremities, fluent speech, no tremor Psychiatric: Orientation: alert and oriented x 3 Affect: + constricted affect Mood: + anxious mood Genitourinary: Montes with ample light yellow urine Results & Data ([facility]) Vital Signs (Past 12 Hours) Vital Signs Temp Pulse Pulse Resp BP BP Pulse Ox 11/22/19 07:50 60 11/22/19 07:19 36.3 C L 52 L 18 125/81 100 11/22/19 02:53 36.5 C 54 L 18 113/74 99 11/22/19 02:03 63 Laboratory Results 11/21/19 03:52 11/22/19 06:33 (1) Constipation Constipation type: unspecified constipation type Qualified Code(s): K59.00 - Constipation, unspecified
[2019-11-22] MEDS ORDERED: D5W AND 1/2NSS 1,000 ML IV SCH (16:00)
--- NOTE | 2019-11-22 16:06 | Hospitalist Progress Note ---
Date of Service delayed entry date of service noted below November 22, 2019 Assessment & Plan (1) Hyponatremia: - In the ED, Na+ 121 (baseline seems to be in the high 120s-low 130s) -Likely hypovolemic hyponatremia in the setting of poor p.o. intake and vomiting -resolved with IV fluids (2) Hypokalemia: (3) Hypomagnesemia: monitor and replace (4) Constipation: Ileus -- advance diet to clears monitor -- repeat KUB: pending -- awaiting further recommendations by GI (5) Paranoid schizophrenia: -Patient self stopped Risperdal and Geodon about 1 month ago as she felt as though is contributing to her constipation -No active suicidal or homicidal ideations, denies auditory or visual hallucinations -Psychiatric consult--> olanzapine (6) Urinary retention: -Has chronic Krueger in place -UA suggest possible UTI however patient denies any symptoms and is afebrile without leukocytosis, likely asymptomatic bacteriuria/colonization -Hold on antibiotics for now - krueger changed (7) DVT prophylaxis: -SQ Lovenox Admission and Anticipated Discharge Date Admission Date: November 20, 2019 Subjective ff up for ileus seen resting in comfortable, not in distres states she feels about the same- some nausea, abdominal discomfort, no BMs, minimal flatus tolerating clears so far "i just want an ostomy" denies other symptoms Review of Systems Review of Systems: All systems reviewed & are unremarkable except as noted in HPI & below Physical Exam Physical Exam: General- oriented x 3, not in distress, speaks in sentences with no effort or accessory muscle use Eyes- anicteric Neck- no JVD Lungs- clear BS , no rales/wheezing Heart- normal rate, regular rhythm; no murmurs Abdomen- normal bowel sounds, nondistended, soft, nontender Extremities- no pretibial edema, no calf tenderness Neuro- alert, oriented x 3; no gross focal neurologic deficits Skin- warm & dry Results & Data ([facility]) Vital Signs (Past 12 Hours) Vital Signs Temp Pulse Pulse Resp BP BP Pulse Ox 11/22/19 15:49 37.1 C 84 18 120/78 100 11/22/19 07:50 60 11/22/19 07:19 36.3 C L 52 L 18 125/81 100 (1) Constipation Constipation type: unspecified constipation type Qualified Code(s): K59.00 - Constipation, unspecified
[2019-11-22] MEDS: OLANZapine 10 MG TAB PO SCH (20:30)
[2019-11-22] MEDS: ENOXAPARIN INJ 40 MG/0.4 ML SYR SQ SCH (20:32)
[2019-11-23] MEDS: PANTOprazole 40 MG TAB PO SCH (07:29)
[2019-11-23] MEDS: POLYETHYLENE (MIRALAX) 17 GM PACK PO SCH (07:29)
--- NOTE | 2019-11-23 08:20 | Gastroenterology Progress Note ---
Date of Service November 23, 2019 Assessment & Plan (1) Constipation: 59 year old female with chronic constipation undergoing OP evaluation to rule out outlet delay and pelvic dyssynergia w/ manometry at [facility] who was admitted w/ abd pain, nausea/vomiting and constipation - imaging consistent w/ ileus. She is awake, alert and oriented answering questions appropriately, tolerating a trial of clears w/o nausea/vomiting and has passed small volume gas/stool this AM. - KUB this AM - Appreciate electrolyte management per primary service - Can continue clear liquids as tolerated - Colace 100 mg twice daily - Miralax 1 capful twice daily Thank you for allowing us to participate in the care of this patient. Please call with any acute changes, questions or concerns. Please see addendum below with additional recommendation from my supervising physician. Present on Admission?: Yes Admission and Anticipated Discharge Date Admission Date: November 20, 2019 Supervising Physician Co-Signing Physician Notes Attending attestation I have seen, examined this patient, and agree with the findings and above by our mid-level provider OUMAR Chilel, with the following additions -No clinical signs of obstruction, KUB today proved, has had one bowel movement, would start home medications including Motegrity as well as continuation of the MiraLAX advance diet as tolerated. Outpatient follow-up has been arranged including sitz markers, and anorectal manometry Subjective Pt was seen and evaluated, chart reviewed. History of chronic constipation failed, Linzess, Miralax, Docusate, Dulcolax, Milk of Mag with no success. To trial Motegrity but appears insurance coverage has been an issue. Established as an OP w/ Dr. Porter. Of note, history of neurogenic bladder with chronic retention without known etiology, OP plan for anorectal manometry with balloon expulsion to evaluate anorectal sphincter for outlet delay and pelvic dyssynergia. Upon entering her room as I introduced myself she became quite irritated "leave, I just want to see a surgeon and get an ostomy I have been dealing with this for three years." I was able to have a short discussion with the patient after I re- introduced myself. She suggests ongoing abd pain, gas/bloat, constipation despite extensive outpatient trial of medications. She notes she passed small volume gas/stool this AM and feels as if she has to have a BM again. She is nausted but tolerating clears without vomiting. Review of Systems Constitutional: + fatigue and + weight loss; no fever and no chills Respiratory: no cough and no dyspnea Cardiovascular: no chest pain and no dyspnea Gastrointestinal: + abdominal pain, + nausea and + constipation Physical Exam Constitutional: + ill appearing (chornically ill) and + thin; + not well developed, + not well nourished and no acute distress Respiratory: normal respiratory effort Cardiovascular: Rate/Rhythm: regular rate Gastrointestinal (Abdomen): Percussion/Palpation: abdomen soft; abdomen nontender Skin: no rashes, warm and dry Results & Data ([facility]) Vital Signs (Past 12 Hours) Vital Signs Temp Pulse Pulse Resp BP Pulse Ox 11/23/19 07:11 36.6 C 62 16 126/85 99 11/23/19 07:05 61 11/23/19 03:26 36.5 C 102 H 20 123/75 96 11/23/19 00:30 56 L 11/22/19 23:42 36.5 C 91 H 18 105/72 99 (1) Constipation Constipation type: unspecified constipation type Qualified Code(s): K59.00 - Constipation, unspecified
[2019-11-23] MEDS: FAMOTIDINE 20 MG in SYRINGE 3 ML IV SCH ×2 (08:39→21:57)
--- NOTE | 2019-11-23 09:33 | XRay Report ---
XR KUB/Abdomen 1 view CLINICAL HISTORY: ileus, measure dilation if present distention COMPARISON STUDY: 11/22/2019 FINDINGS: Generalized ileus. The number of distended bowel loops is diminished. Maximum overall diame ter, however of the residual distended small bowel loops has slightly increased to 3.5 cm. IMPRESSION: Slightly improved exam with a decrease in number of air filled slightly distended loops of bowel. The several residual bowel loops are slightly increased in distention to a maximum diameter of 3.5 cm ACT 112: Negative or not required by law. The above report was generated using voice recognition software. It may contain grammatical, syntax or spelling errors. Electronically signed by: Gomez Rahman M.D. 11/23/2019 9:32 AM
[2019-11-23] MEDS: PROMETHAZINE HCL 12.5 MG in SODIUM CHLORIDE 0.9% 50 ML IV PRN ×2 (09:58→23:53)
[2019-11-23] MEDS ORDERED: PROMETHAZINE HCL 12.5 MG in SODIUM CHLORIDE 0.9% 50 ML IV ONE (13:35)
[2019-11-23] MEDS: OLANZapine 10 MG TAB PO SCH (21:57)
[2019-11-23] MEDS: ENOXAPARIN INJ 40 MG/0.4 ML SYR SQ SCH (21:58)
--- NOTE | 2019-11-24 06:13 | Electrocardiogram Report ---
Test Reason : Blood Pressure : / mmHG Vent. Rate : 082 BPM Atrial Rate : 082 BPM P-R Int : 126 ms QRS Dur : 078 ms QT Int : 360 ms P-R-T Axes : 069 070 048 degrees QTc Int : 420 ms Normal sinus rhythm Normal ECG When compared with ECG of 21-NOV-2019 16:08, No significant change was found Confirmed by Eleuterio Wiggins ([id number]) on 11/24/2019 6:13:30 AM Referred By: REFERRED SELF Confirmed By:Eleuterio Wiggins
[2019-11-24] MEDS: FAMOTIDINE 20 MG in SYRINGE 3 ML IV SCH (07:55)
[2019-11-24] MEDS: POLYETHYLENE (MIRALAX) 17 GM PACK PO SCH (07:55)
[2019-11-24] MEDS: PANTOprazole 40 MG TAB PO SCH (07:55)
--- NOTE | 2019-11-24 08:19 | Gastroenterology Progress Note ---
Date of Service November 24, 2019 Assessment & Plan (1) Constipation: 59 year old female with chronic constipation undergoing OP evaluation to rule out outlet delay and pelvic dyssynergia w/ manometry at [facility] who was admitted w/ abd pain, nausea/vomiting and constipation - imaging consistent w/ ileus. She is awake, alert and oriented answering questions appropriately, tolerating a trial of clears w some nausea but no vomiting and has passed small volume gas/stool this AM. - Trial of Bentyl 10 my three times daily - Appreciate electrolyte management per primary service - Can continue clear liquids as tolerated - Colace 100 mg twice daily - Miralax 1 capful twice daily If constipation, cramping persists despite Bentyl/colace/miralax can consider a bowel purge w/ golytely 4L. Will sign off. Thank you for allowing us to participate in the care of this patient. Please call with any acute changes, questions or concerns. Please see addendum below with additional recommendation from my supervising physician. Admission and Anticipated Discharge Date Admission Date: November 20, 2019 Supervising Physician Co-Signing Physician Notes Attending attestation I have seen, examined this patient, and agree with the findings and above by our mid-level provider OUMAR Chilel, with the following additions -No clinical signs of obstruction, KUB today proved, has had one bowel movement, would start home medications including Motegrity as well as continuation of the MiraLAX advance diet as tolerated. Outpatient follow-up has been arranged including sitz markers, and anorectal manometry, no signs of obstructive features on exam, as patient is demanding therapeutic ostomy can discuss with general surgery, however, she states this has been ongoing for 1 year and thinks that is only thing that will help. Subjective Pt was seen and evaluated this AM Nursing at bedside, getting new IV site Pt notes persistent abd pain, cramping, constiation. Some chronic nausea, no vomiting Currently eating clear liquids breakfast No fever, chills, CP, SOB Review of Systems Constitutional: no fever, no chills and no fatigue Respiratory: no cough and no dyspnea Cardiovascular: no chest pain and no dyspnea Gastrointestinal: + abdominal pain, + nausea and + cramping; no coffee ground emesis, no hematemesis, no blood in stools and no melena Physical Exam Constitutional: + ill appearing (chornically ill) and + thin; + not well developed, + not well nourished and no acute distress Respiratory: normal respiratory effort Cardiovascular: Rate/Rhythm: regular rate Gastrointestinal (Abdomen): Percussion/Palpation: abdomen soft; abdomen nontender Skin: no rashes, warm and dry Results & Data ([facility]) Vital Signs (Past 12 Hours) Vital Signs Temp Pulse Pulse Resp BP Pulse Ox 11/24/19 07:15 66 11/24/19 07:06 36.6 C 68 18 109/69 96 11/24/19 04:11 37.1 C 66 18 110/73 96 11/23/19 23:54 37.3 C 73 18 111/74 99 11/23/19 23:35 72 11/23/19 20:30 37.2 C (1) Constipation Constipation type: unspecified constipation type Qualified Code(s): K59.00 - Constipation, unspecified
[2019-11-24] MEDS ORDERED: DICYCLOMINE HCL 10 MG CAP PO SCH (09:00)
[2019-11-24] MEDS: DICYCLOMINE HCL 10 MG CAP PO PRN (09:16)
[2019-11-24] MEDS: DOCUSATE SODIUM 100 MG CAP PO SCH ×2 (09:16→20:20)
--- NOTE | 2019-11-24 14:19 | Psychiatric Progress Note ---
Date of Service November 24, 2019 Impression / Recommendations Impression Dr. Sara Zaidi was provided with updates regarding the patient's case and participated in medical decision making regarding treatment recommendations. RECOMMENDATIONS: 11/23 - While it is not ideal for patient to be off of her antipsychotic medications during this time, she maintains that she is uninterested in taking any additional medications until her constipation is resolved/addressed. While this decision is against recommendations from our team, the reasoning she provides for this decision does not seem to be rooted in any delusional or paranoid thought content. Pt states she will not utilize currently prescribed olanzapine 10mg qHS - though it is reasonable to continue to offer. - This provider did offer to resume patient's previous psychiatric regimen of ziprasidone and prn risperidone; which is also declined at this time. Pt is declining initiation of any new medications presently. - Pt was offered for our service to make referrals to [facility] - as patient was an established client of Smitah Loredo PA-C at [facility] prior to their closure; she is reluctant to accept as she is worried we would schedule an appointment sooner than she feels she could physically attend - will continue to offer reassurance and provide updates regarding status of referral. - Of note, while patient does make numerous statements about her desire to "just give up" and stating "there is nothing left for me, no other options", she denies suicidality. Pt is able to discuss as safety plan she feels comfortable utilizing here in the hospital and assures this provider that she would speak with nursing about any acute safety concerns. Pt denies history of SI or previous suicide attempts. She admits her religiosity is a protective factor, as she views suicide as a sin. Routine assessment for suicidal thoughts is recommended given the complexity of her current situation; however, she is not felt to be at acute risk of harm to self or others at this time. - Recommend ongoing discharge considerations, as patient's capacity to care of herself at home in this state is uncertain - will defer to primary team and case management. - Please continue to reach out to our service with additional questions or updates. 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 Psychiatry consulted for psychiatric med management for patient who stopped her psychiatric meds a month ago over concerns was adding to her constipation. Initial consultation completed on 11/20, with follow-up visit completed today to assess progress. Chief Complaint "I'm doing terribly. This is awful." Review of Systems Notes Constitutional: reports generalized weakness Cardiovascular: denied Respiratory: denied Gastrointestinal: reports ongoing constipation, bloating, abdominal pain, and nausea Neurological: denied Psychiatric: denies symptoms other than stated above Total of at least 10 systems reviewed, pertinent positives as above and in HPI. Subjective Subjective Patient was seen & assessed and interval progress reviewed with supervising psychiatrist and psychiatric nurse liaison. Initial psychiatric consultation completed on 11/21/2019 for medication recommendations - history of schizophrenia with reported discontinuation of home psychotropic medication regimen for fear the medications were contributing to her constipation. Pt is seen today of follow-up, as she has been refusing recommended HS olanzapine dosing. Pt is cooperative with conversation today, though firmly states she will not accept any medication from this provider. She admits that she is "doing terribly" and that her ongoing GI concerns have become frustrating and overwhelming. Pt states that she is at the point that she is requesting an elective colostomy in hopes the procedure would help to relieve her discomfort. Pt says that other treatment recommendations during this hospitalization have not been helpful. We did discuss the impact these physical concerns are likely having on her mental health. This provider suggested that medications similar to olanzapine can also be helpful for anxiety and may allow patient to feel less fixated on her bowels. Pt states she will not "put anything new into my body until the sandwich I ate 14 days ago comes out." She also states that she becomes nauseous when taking pills and is worried she would not be able to tolerate any more pills than she has already been taking. Pt was offered to resume her home psychotropic medication regimen of ziprasidone and prn risperidone, but states she will not take these medications either. We discussed her initial concern that these medications were causing her constipation, and this provider attempted to explain that they were likely non- contributory if discontinuing them have not permitted her to move her bowels any more easily. Pt remains firm in decision to not entertain any additional medications at this time. Pt does state numerous times during our encounter that she is "out of options" and "I give up." Pt admits to hopelessness surrounding her medical issues and even states "I feel is coming soon, I'm not sure I'll be here much longer. I see Eric everywhere these days." Despite these statements, patient does admit that she is not suicidal and feels safe here in the hospital. Pt denies previous attempts to harm herself or end her life. She even states "I'm so miserable now, there is no way I would risk going to Hell on top of it all." Pt does admit to feeling comfortable approaching staff about any safety concerns or onset of suicidality. She denies other needs or concerns from our service at this time, but is allowing us to continue intermittent visits. Physical Exam Psychiatric Orientation: alert, oriented x 3 and cooperative (superficially) Apperance: appropriately dressed and appropriately groomed; + did not appear stated age (appears significantly older than stated age) Appearing significantly underweight Eye Contact: good eye contact Motor Behavior: no abnormal motor movements (observed while laying in bed) Speech: normal rate/rhythm/volume of speech Affect: + tearful affect and + irritable affect Mood: + irritable mood (admittedly frustrated about her chronic constipation) Thought Process: goal directed thought process and clear/coherent thought process Thought Content: + preoccupation (with constipation), reality based without delusions and + hopelessness Suicidal Thoughts: denies suicidal thoughts, denies suicidal plan and denies suicidal intent Homicidal Thoughts: denies homicidal thoughts Hallucinations: no auditory hallucinations and no visual hallucinations Cognition: attention grossly intact and language grossly intact Insight: + limited insight Judgement: + limited judgement Vital Signs (Past 24 Hours) Last Vital Signs Temp 37 C 11/24/19 11:25 Pulse 73 11/24/19 11:25 Resp 16 11/24/19 11:25 BP 110/71 11/24/19 11:25 Pulse Ox 98 11/24/19 11:25 Results & Data ([facility]) Current Inpatient Medications Current Inpatient Medications: Current Inpatient Medications Acetaminophen (Tylenol) 650 mg PO Q4H PRN PRN Reason: pain/fever Stop: 12/20/19 21:14 Dicyclomine HCl (Bentyl) 10 mg PO TID PRN PRN Reason: abdominal cramping Stop: 12/24/19 08:59 Last Admin: 11/24/19 09:16 Dose: 10 mg Documented by: Docusate Sodium (Colace) 100 mg PO BID FAWAD Stop: 12/24/19 08:59 Last Admin: 11/24/19 09:16 Dose: 100 mg Documented by: Enoxaparin Sodium (Lovenox) 40 mg SQ Q24H FAWAD Stop: 12/20/19 21:59 Last Admin: 11/23/19 21:58 Dose: Not Given Documented by: Promethazine HCl 12.5 mg/ (Sodium Chloride) 50.5 mls @ 202 mls/hr IV Q6H PRN PRN Reason: Nausea And Vomiting Stop: 12/20/19 21:39 Last Infusion: 11/24/19 00:08 Dose: Infused Documented by: Olanzapine (Zyprexa) 10 mg PO HS ON LICENSE OF [facility] Stop: 12/22/19 20:59 Last Admin: 11/23/19 21:57 Dose: Not Given Documented by: Pantoprazole Sodium (Protonix) 40 mg PO DAILY FAWAD Stop: 12/21/19 08:59 Last Admin: 11/24/19 07:55 Dose: 40 mg Documented by: Polyethylene Glycol (Miralax Powder Packet) 17 gm PO DAILY FAWAD Stop: 12/21/19 16:59 Last Admin: 11/24/19 07:55 Dose: 17 gm Documented by:
[2019-11-24] MEDS: OLANZapine 10 MG TAB PO SCH (20:20)
[2019-11-24] MEDS: ENOXAPARIN INJ 40 MG/0.4 ML SYR SQ SCH (20:21)
--- NOTE | 2019-11-24 21:00 | Hospitalist Progress Note ---
Date of Service Late entry date of service November 23, 2019 November 24, 2019 Assessment & Plan (1) Hyponatremia: - In the ED, Na+ 121 (baseline seems to be in the high 120s-low 130s) -Likely hypovolemic hyponatremia in the setting of poor p.o. intake and vomiting -resolved with IV fluids Neurologist consulted (2) Hypokalemia: (3) Hypomagnesemia: Resolved (4) Constipation: Ileus -- advanced diet to clears monitor -- repeat KUB: Slightly improved exam with a decrease in number of air filled slightly distended loops of bowel. The several residual bowel loops are slightly increased in distention to a maximum diameter of 3.5 cm --GI recommending to increase MiraLAX to twice daily Advance diet as tolerated (5) Paranoid schizophrenia: -Patient self stopped Risperdal and Geodon about 1 month ago as she felt as though is contributing to her constipation -No active suicidal or homicidal ideations, denies auditory or visual hallucinations -Psychiatric consult--> recommend olanzapine 10 mg at bedtime (6) Urinary retention: -Has chronic Krueger in place -UA suggest possible UTI however patient denies any symptoms and is afebrile without leukocytosis, likely asymptomatic bacteriuria/colonization -Hold on antibiotics for now - krueger catheter has been changed (7) DVT prophylaxis: -SQ Lovenox Disposition Lives at home Admission and Anticipated Discharge Date Admission Date: November 20, 2019 Subjective Follow-up for ileus Seen resting in bed, comfortable, not in distress Patient appears very anxious, upset, states she is tired of having constipation And is adamantly demanding to undergo colostomy placement Reports vomiting after breakfast, generalized abdominal discomfort, nausea Denies shortness of breath, palpitations, dizziness Other symptoms Review of Systems Review of Systems: All systems reviewed & are unremarkable except as noted in HPI & below Physical Exam Physical Exam: General- oriented x 3, not in distress, speaks in sentences with no effort or accessory muscle use Eyes- anicteric Neck- no JVD Lungs- clear bilaterally, no crackles or wheezing Heart- normal rate, regular rhythm; no murmurs Abdomen- normal bowel sounds, nondistended, soft, nontender Extremities- no pretibial edema, no calf tenderness Neuro- alert, oriented x 3; no gross focal neurologic deficits Skin- warm & dry Results & Data ([facility]) Vital Signs (Past 12 Hours) Vital Signs Temp Pulse Pulse Resp BP Pulse Ox 11/24/19 19:58 36.9 C 68 18 95/63 L 98 11/24/19 16:54 86 11/24/19 16:20 36.9 C 61 18 124/85 99 11/24/19 11:25 37 C 73 16 110/71 98 (1) Constipation Constipation type: unspecified constipation type Qualified Code(s): K59.00 - Constipation, unspecified
--- NOTE | 2019-11-24 21:03 | Hospitalist Progress Note ---
Date of Service November 24, 2019 Assessment & Plan (1) Constipation: Ileus --Follows with the [facility] GI clinic for chronic constipation, already on multiple laxatives and enema apparently with no improvement Previously prescribed Motgerity and Linzess however has not been taking regularly, there have also been issues with insurance coverage -- Patient presenting to the ER with reports of constipation, nausea, vomiting --Placed on n.p.o. status, IV fluids KUB slowly improving, diet being advanced cautiously -- repeat KUB: Slightly improved exam with a decrease in number of air filled slightly distended loops of bowel. The several residual bowel loops are slightly increased in distention to a maximum diameter of 3.5 cm --GI recommending to advance diet as tolerated increase MiraLAX to twice daily, Colace twice a day, Bentyl as needed If without improvement can do a trial of bowel purge with GoLYTELY (2) Ileus: per #1 (3) Paranoid schizophrenia: -Patient self stopped Risperdal and Geodon about 1 month ago as she felt as though is contributing to her constipation -No active suicidal or homicidal ideations, denies auditory or visual hallucinations -Psychiatric consult--> recommend olanzapine 10 mg at bedtime (4) Hyponatremia: - In the ED, Na+ 121 (baseline seems to be in the high 120s-low 130s) -Likely hypovolemic hyponatremia in the setting of poor p.o. intake and vomiting -resolved with IV fluids (5) Hypokalemia: Replaced and resolved (6) Hypomagnesemia: Rest, and resolved (7) Urinary retention: -Has chronic Krueger in place Follows with Dr. Karmen Olivas, urinary retention felt to be secondary to psychiatric medications -UA suggest possible UTI however patient denies any symptoms and is afebrile without leukocytosis, likely asymptomatic bacteriuria/colonization -Hold on antibiotics for now - krueger catheter has been changed (8) DVT prophylaxis: -SQ Lovenox Disposition Anticipate discharge to home medically stable Admission and Anticipated Discharge Date Admission Date: November 20, 2019 Subjective Follow-up for ileus Seen resting in bed, comfortable, not in distress Reports having a small bowel movement yesterday States that she continues to have abdominal discomfort, nausea, had an episode of vomiting after eating breakfast She continues to ask adamantly to call in a surgeon and have a colostomy placed No other symptoms Review of Systems Review of Systems: All systems reviewed & are unremarkable except as noted in HPI & below Physical Exam Physical Exam: General- oriented x 3, not in distress, speaks in sentences with no effort or accessory muscle use Eyes- anicteric Neck- no JVD Lungs- clear breath sounds bilaterally, no rales/wheezes Heart- normal rate, regular rhythm; no murmurs Abdomen- normal bowel sounds, nondistended, soft, nontender Extremities- no pretibial edema, no calf tenderness Neuro- alert, oriented x 3; no gross focal neurologic deficits Skin- warm & dry Results & [facility] ([facility]) Vital Signs (Past 12 Hours) Vital Signs Temp Pulse Pulse Resp BP Pulse Ox 11/24/19 19:58 36.9 C 68 18 95/63 L 98 11/24/19 16:54 86 11/24/19 16:20 36.9 C 61 18 124/85 99 11/24/19 11:25 37 C 73 16 110/71 98 (1) Constipation Constipation type: unspecified constipation type Qualified Code(s): K59.00 - Constipation, unspecified
[2019-11-25] MEDS: DOCUSATE SODIUM 100 MG CAP PO SCH ×2 (07:49→19:34)
[2019-11-25] MEDS: PANTOprazole 40 MG TAB PO SCH (07:50)
[2019-11-25] MEDS: DICYCLOMINE HCL 10 MG CAP PO PRN ×2 (07:50→19:32)
[2019-11-25] MEDS: POLYETHYLENE (MIRALAX) 17 GM PACK PO SCH (07:50)
[2019-11-25] MEDS: ENOXAPARIN INJ 40 MG/0.4 ML SYR SQ SCH (19:34)
[2019-11-25] MEDS: OLANZapine 10 MG TAB PO SCH (19:34)
--- NOTE | 2019-11-25 21:25 | Hospitalist Progress Note ---
Date of Service November 25, 2019 Assessment & Plan (1) Ileus: Patient reported no bowel movement for 5 days at time of admission. Problems with chronic constipation, followed by GI. Have been prescribed Motegrity and Linzess, but apparently not taken on a regular basis because of insurance coverage. Imaging by CT and KUB is consistent with ileus, no apparent obstruction. Laxative overuse and electrolyte abnormalities could be contributing factor. KUB on 11/21 slightly improved. Passing flatus, but no stool. GoLYTELY bowel prep recommended by GI, but patient reluctant. Patient feels that a colostomy would help her problems, but that probably would not be the best course of therapy. Check follow-up KUB and labs tomorrow. (2) Hyponatremia: Sodium 121 on day of admission. Sodium 134 on 11/21. Follow. (3) Hypokalemia: Potassium was 2.3 on day of admission. Received replacement. Potassium 4.6 on 11/21. Follow. (4) Hypomagnesemia: Mg as low as 1.7. Follow. (5) Urinary retention: Chronic urinary retention with Montes cath. (6) Paranoid schizophrenia: Seen by Psychiatry. Continue olanzapine. (7) DVT prophylaxis: SQ enoxaparin. Ambulate. (8) Discharge planning issues: Anticipated discharge to home. Family Medicine follow-up with Dr. Middleton. Admission and Anticipated Discharge Date Admission Date: November 20, 2019 Subjective Recheck for ileus and other problems. Patient seen in their room around 1600. Passing flatus, no stools. No nausea or vomiting. Has some abdominal discomfort. Review of Systems: Constitutional- no fever. Cardiac- no chest pain. Pulmonary- no cough or SOB. GI- as noted above. - chronic Montes cath. Otherwise, as noted above. Physical Exam Constitutional: no acute distress Respiratory: no respiratory distress Auscultation: lungs clear to auscultation bilaterally Cardiovascular: Rate/Rhythm: regular rate and regular rhythm Vessels: no JVD Extremities: no calf tenderness and no edema Gastrointestinal (Abdomen): Inspection/Auscultation: + abdomen distended (moderate); + abnormal bowel sounds (high-pitched) Percussion/Palpation: abdomen soft; abdomen nontender Skin: no rashes, warm and dry Psychiatric: Orientation: alert and oriented x 3 Genitourinary: + bladder abnormal to inspection (Montes cath) Results & Data ([facility]) Vital Signs (Past 12 Hours) Vital Signs Temp Pulse Pulse Resp BP BP Pulse Ox 11/25/19 19:45 36.6 C 58 L 20 106/70 98 11/25/19 15:15 36.9 C 71 20 93/59 L 98 11/25/19 15:08 78 11/25/19 11:41 36.6 C 58 L 16 108/70 99 11/25/19 09:36 56 L
[2019-11-25] MEDS: NICOTINE 7 MG/24 HR TDSY TD SCH (22:47)
[2019-11-26 07:04] LABS: BUN Creatinine Ratio 2.9 (10-20); Calcium 8.6 mg/dl (8.5-10.1); Est GFR (African American) 122.1; Est GFR (Non-African American) 105.3; Potassium 3.9 mmol/L (3.5-5.1)
[2019-11-26 07:05] LABS: Phosphorus 3.2 mg/dl (2.5-4.9)
--- NOTE | 2019-11-26 08:03 | XRay Report ---
KUB CLINICAL HISTORY: Ileus. COMPARISON STUDY: CT of the abdomen and pelvis November 20, 2019. KUB November 23, 2019. FINDINGS: Mild gaseous distention of small and large bowel has slightly increased since exam November. There is no evidence for free air on this supine exam. Pelvic calcifications represent phlebo liths. IMPRESSION: Mild gaseous distention of small and large bowel, increased since prior exam. The appeara nce favors an ileus. ACT 112: Negative or not required by law. Electronically signed by: Leonard Mcclellan M.D. 11/26/2019 8:01 AM
[2019-11-26] MEDS: DICYCLOMINE HCL 10 MG CAP PO PRN (09:04)
[2019-11-26] MEDS: PROMETHAZINE HCL 12.5 MG in SODIUM CHLORIDE 0.9% 50 ML IV PRN (09:06)
[2019-11-26] MEDS: NICOTINE 7 MG/24 HR TDSY TD SCH ×2 (09:07→17:02)
[2019-11-26] MEDS: DOCUSATE SODIUM 100 MG CAP PO SCH ×2 (09:12→21:46)
[2019-11-26] MEDS: POLYETHYLENE (MIRALAX) 17 GM PACK PO SCH (09:13)
[2019-11-26] MEDS: PANTOprazole 40 MG TAB PO SCH (09:13)
[2019-11-26] MEDS: LAVAGE SOLUTION 4000ML PO SCH ×2 (12:00→14:56)
[2019-11-26] MEDS: OLANZapine 10 MG TAB PO SCH (21:46)
--- NOTE | 2019-11-26 21:47 | Hospitalist Progress Note ---
Date of Service November 26, 2019 Assessment & Plan (1) Ileus: Patient reported no bowel movement for 5 days at time of admission. Problems with chronic constipation, followed by GI. Have been prescribed Motegrity and Linzess, but apparently not taken on a regular basis because of insurance coverage. Imaging by CT and KUB is consistent with ileus, no apparent obstruction. Laxative overuse and electrolyte abnormalities could be contributing factor. KUB on 11/21 slightly improved. Passing flatus, but no stool. GoLYTELY bowel prep recommended by GI, but patient reluctant. Patient feels that a colostomy would help her problems, but that probably would not be the best course of therapy. KUB today shows gas pattern consistent with ileus. Electrolytes now essentially normal. GI recommended GoLytely prep and patient willing to try it. (2) Hyponatremia: Sodium 121 on day of admission. Sodium today = 135. Follow. (3) Hypokalemia: Potassium was 2.3 on day of admission. Received replacement. Potassium today = 3.9. Follow. (4) Hypomagnesemia: Mg as low as 1.7. Replaced. Mg today = 2.0. (5) Urinary retention: Chronic urinary retention with Montes cath. (6) Bacteriuria, asymptomatic: Urine culture grew Citrobacter braakii and Pseudomonas aeruginosa. No fever. Colonization / asymptomatic bacteruria secondary to Montes cath. Antibiotic therapy not indicated. (7) Paranoid schizophrenia: Seen by Psychiatry. Continue olanzapine. (8) DVT prophylaxis: SQ enoxaparin. Ambulate. (9) Discharge planning issues: Anticipated discharge to home. Family Medicine follow-up with Dr. Middleton. Admission and Anticipated Discharge Date Admission Date: November 20, 2019 Subjective Recheck for ileus and other problems. Patient seen in their room around 0950. Ongoing abdominal discomfort- Bentyl helps for a while. Patient states now bowel movements, but nursing reported moderate stool yesterday. Not passing any flatus or stool today. Review of Systems: Constitutional- no fever. Cardiac- no chest pain. Pulmonary- no cough or SOB. GI- as noted above. - chronic Montes cath. Otherwise, as noted above. Physical Exam Constitutional: no acute distress Respiratory: no respiratory distress Auscultation: lungs clear to auscultation bilaterally Cardiovascular: Rate/Rhythm: regular rate and regular rhythm Vessels: no JVD Extremities: no calf tenderness and no edema Gastrointestinal (Abdomen): Inspection/Auscultation: + abdomen distended (moderate); + abnormal bowel sounds (high-pitched) Percussion/Palpation: abdomen soft; abdomen nontender Skin: no rashes, warm and dry Psychiatric: Orientation: alert and oriented x 3 Genitourinary: + bladder abnormal to inspection (Montes cath) Results & Data ([facility]) Vital Signs (Past 12 Hours) Vital Signs Temp Pulse Resp BP BP Pulse Ox 11/26/19 15:08 36.3 C L 59 L 16 119/78 99 11/26/19 11:17 36.7 C 59 L 16 111/75 98 Laboratory Results Laboratory Results - last 24 hr 11/26/19 06:02 Sodium 135 L Potassium 3.9 Chloride 104 Carbon Dioxide 25 Anion Gap 6.0 BUN 2 L Creatinine 0.52 L Est Cr Clr Drug Dosing 91.0 Est GFR ( Amer) 122.1 Est GFR (Non-Af Amer) 105.3 BUN/Creatinine Ratio 2.9 L Glucose 75 Calcium 8.6 Phosphorus 3.2 Magnesium 2.0
[2019-11-27] MEDS: NICOTINE 7 MG/24 HR TDSY TD SCH ×2 (07:49→17:36)
[2019-11-27] MEDS: DOCUSATE SODIUM 100 MG CAP PO SCH ×3 (07:49→20:35)
[2019-11-27] MEDS: POLYETHYLENE (MIRALAX) 17 GM PACK PO SCH ×2 (07:50→07:52)
[2019-11-27] MEDS: PANTOprazole 40 MG TAB PO SCH (07:50)
--- NOTE | 2019-11-27 11:34 | Surgery Consultation ---
Date of Consultation November 27, 2019 Assessment & Plan (1) Constipation: 59-year-old schizophrenic female with chronic constipation. All of her imaging studies suggest an ileus, or possibly just secondary to her chronic constipation. She is currently undergoing evaluation by GI. The patient is requesting a therapeutic colostomy, however until her evaluation is complete there is no indication that this will help her. We discussed this at length, as well as the fact that we are under guidelines not to perform any nonessential or urgent surgeries during this current pandemic. I would recommend she continue her bowel regimen. Please see GI consultation for other recommendations to in duce a bowel movement. Once her outpatient evaluation is complete if there is need for further surgical treatment, she may refer to a colorectal surgeon. No surgical intervention indicated at this time Continue work-up as an outpatient for chronic constipation Follow GI recommendations for bowel movements Continue to support nutrition with protein shakes Surgery will sign off, please call with questions or concerns History of Present Illness Attending Physician: Mello Mosqueda MD History of Present Illness 59-year-old female with 1-1/2-year history of chronic constipation admitted with worsening symptoms. The patient has requested a surgical consultation for ther apeutic ostomy. She had never had a significant issue with constipation per her report, until about 1-1/2 years ago. She states she has lost weight over this time. Her starting weight was 173 pounds and now she is down to 101. She states she last ate half of a hoagie 28 days ago and it is just coming out now. She is passing flatus. She does not have any significant abdominal tenderness. She has been undergoing evaluation with [facility], and anal manometry was performed and she is scheduled for a sits marker study. She does have a history of paranoid schizophrenia and has been off meds for almost a month due to insurance issues. She is also not taking her normal GI regimen for the same reason. She had a CT scan and multiple KUBs performed which showed no obstruction with air filling the small bowel and colon all the way down to the rectum consistent with an ileus. Allergies Allergy/AdvReac Type Severity Reaction Status Date / Time oxybutynin Allergy Unknown Unknown Verified 11/20/19 16:16 povidone-iodine Allergy Unknown Rash Verified 11/20/19 16:16 [From Betadine] soap [From Betadine] Allergy Unknown Rash Verified 11/20/19 16:16 Home Medications Home Medications Medication Instructions Recorded Confirmed Type esomeprazole magnesium [Nexium] 20 mg PO QAM 05/22/18 11/20/19 History magnesium hydroxide [Milk of 15 ml PO DAILY PRN 07/26/18 11/20/19 History Magnesia] potassium chloride 20 meq PO QAM PRN 11/05/19 11/20/19 History Patient History Medical History Anxiety (Acute) Constipation (Acute) Hemorrhoids (Acute) History of electrolyte imbalance Hyponatremia and hypokalemia Paranoid schizophrenia (Chronic) Urinary retention (Acute) With chronic Montes Uterine cancer (Resolved) Surgical History H/O hemorrhoidectomy Hx of hysterectomy Family History Other Cancer Diabetes Gallbladder disease Heart disease Hypertension Kidney disease Kidney stone Lung disease Seizures Social History Preferred Language: Angolan Communication Ability: Effective Tattooer Required: No Beliefs That Will Affect Care: None marital status: Current Living Situation: Alone Current Living Situation Comment: Apartment Complex Feels Safe at Home: Yes Smoking Status: Never smoker Tobacco Type: smokeless tobacco ; Cigarettes Per Day: Pt uses one "zyn" patch daily, states it is nicotine, not tobacco ; Second Hand Exposure: No ; Hx Alcohol Use: No Hx Substance Use: No Review of Systems Review of Systems: All systems reviewed & are unremarkable except as noted in HPI & below Physical Exam Constitutional: WD/WN, vitals as above Eyes: PERRL, conjunctivae normal, anicteric sclerae ENMT: external ear and nose normal, oropharynx normal Neck: trachea midline, no thyromegaly Respiratory: normal respiratory effort, lungs clear to auscultation Cardiovascular: RRR, no murmur, no edema Gastrointestinal (Abdomen): normal bowel sounds, soft, nontender, no hepatosplenomegaly Inspection/Auscultation: + abdomen distended (Minimal abdominal distention) Musculoskeletal: no cyanosis or clubbing, extremities motor strength 5/5 Skin: no rashes, warm and dry Neurologic: PERRL, EOMI, accommodation nl, no face palsy, no dysarthria Psychiatric: A+Ox3, euthymic affect Lymphatic: no cervical or axillary lymphadenopathy Results & Data Diagnostic Findings CT SCAN OF THE ABDOMEN AND PELVIS WITHOUT CONTRAST CLINICAL HISTORY: Abdominal pain and distention COMPARISON STUDY: 03/04/2019 TECHNIQUE: CT scan of the abdomen and pelvis was performed from the lung bases to the proximal femurs. Images are reviewed in the axial, sagittal, and coronal planes. IV contrast was not administered for this examination. A dose lowering technique was utilized adhering to the principles of ALARA. CT DOSE: 336.71 mGy.cm FINDINGS: Lower chest: There is a hiatal hernia. There are no pleural effusions. Liver: The unenhanced liver is normal in size, contour, and attenuation. There is no intrahepatic biliary ductal dilatation. Gallbladder: Unremarkable. Spleen: Normal in size and attenuation. Pancreas: Unremarkable. Adrenal glands: Unremarkable. Kidneys: No renal, ureteral, or bladder calculi identified. There is a punctate renal cortical calcification within the lower pole. There is minimal fullness the right renal collecting system Bowel: There is diffuse gaseous distention of both large and small bowel loops. There are no transition zones to indicate bowel obstruction. There is no pneumatosis. Calcific densities as visualized image #[id number], likely represent enteric contents. Peritoneum: There is no intraperitoneal free air or abdominal ascites. Vasculature: The abdominal aorta is normal in course and caliber. Adenopathy: None. Pelvic viscera: There is an indwelling Montes catheter. There is air within the bladder likely iatrogenic. There is probable mild bladder wall thickening. The patient appears be status post a prior hysterectomy. Skeletal structures: No destructive osseous lesions are seen. IMPRESSION: 1. Examination limited by the lack of intravenous and oral contrast 2. Mild distention of both large and small bowel loops without evidence of a transition zone. The findings favor an ileus 3. No renal ureteral or bladder calculi identified PG Care Time/CCT Total # of Minutes Spent Total Time Spent with Patient: Total time spent is greater than 50% in coordination of care (as documented) at patient's floor/unit and/or counseling patient: Coding Level of Care Code 68639 Inpt Consult Level 3 Diagnoses Constipation K59.00 Constipation type: unspecified constipation type (1) Constipation Constipation type: unspecified constipation type Qualified Code(s): K59.00 - Constipation, unspecified
--- NOTE | 2019-11-27 19:30 | Hospitalist Progress Note ---
Date of Service November 27, 2019 Assessment & Plan (1) Ileus: Patient reported no bowel movement for 5 days at time of admission. Problems with chronic constipation, followed by GI. Have been prescribed Motegrity and Linzess, but apparently not taken on a regular basis because of insurance coverage. Imaging by CT and KUB is consistent with ileus, no apparent obstruction. Laxative overuse and electrolyte abnormalities could be contributing factor. KUB on 11/21 slightly improved. Passing flatus, but no stool. GoLYTELY bowel prep recommended by GI, but patient reluctant. Patient feels that a colostomy would help her problems, but that probably would not be the best course of therapy. KUB today shows gas pattern consistent with ileus. Electrolytes now essentially normal. GI recommended GoLytely prep, but patient not able to tolerate it. Doubt that there is an indication for surgical intervention, but will consult General Surgery per her request. (2) Hyponatremia: Sodium 121 on day of admission. Sodium yesterday = 135. Follow. (3) Hypokalemia: Potassium was 2.3 on day of admission. Received replacement. Potassium yesterday = 3.9. Follow. (4) Hypomagnesemia: Mg as low as 1.7. Replaced. Mg yesterday = 2.0. (5) Urinary retention: Chronic urinary retention with Montes cath. (6) Bacteriuria, asymptomatic: Urine culture grew Citrobacter braakii and Pseudomonas aeruginosa. No fever. Colonization / asymptomatic bacteruria secondary to Montes cath. Antibiotic therapy not indicated. (7) Paranoid schizophrenia: Seen by Psychiatry. Continue olanzapine. (8) DVT prophylaxis: SQ enoxaparin ordered, but patient refused. SCD's. Ambulate. (9) Discharge planning issues: Anticipated discharge to home. Family Medicine follow-up with Dr. Middleton. Admission and Anticipated Discharge Date Admission Date: November 20, 2019 Subjective Recheck for ileus and other problems. Patient seen in their room around 0750. Could only do part of GoLytely purge yesterday. Had only minimal results. Still having intermittent severe crampy abdominal pain. Has nausea, but no emesis. Minimal PO intake. Worried about her ongoing symptoms and nutritional status. Would like surgical opinion regarding her abdominal pain. Review of Systems: Constitutional- no fever. Cardiac- no chest pain. Pulmonary- no cough or SOB. GI- as noted above. - chronic Montes cath. Otherwise, as noted above. Physical Exam Constitutional: no acute distress Respiratory: no respiratory distress Auscultation: lungs clear to auscultation bilaterally Cardiovascular: Rate/Rhythm: regular rate and regular rhythm Vessels: no JVD Extremities: no calf tenderness and no edema Gastrointestinal (Abdomen): Inspection/Auscultation: + abdomen distended (moderate); + abnormal bowel sounds (high-pitched) Percussion/Palpation: abdomen soft; abdomen nontender Skin: no rashes, warm and dry Psychiatric: Orientation: alert and oriented x 3 Genitourinary: + bladder abnormal to inspection (Montes cath)
[2019-11-27] MEDS ORDERED: TRAMADOL HCL 50 MG TABLET PO PRN (19:58)
[2019-11-27] MEDS: LAVAGE SOLUTION 4000ML PO SCH (20:34)
[2019-11-27] MEDS: OLANZapine 10 MG TAB PO SCH (20:35)
[2019-11-28 06:05] LABS: BUN Creatinine Ratio 2.8 (10-20); Calcium 8.8 mg/dl (8.5-10.1); Creatinine Clr Calc Pharmacy 110.1 ml/min; Est GFR (African American) 129.9; Est GFR (Non-African American) 112.1; Magnesium 1.7 mg/dl (1.8-2.4); Potassium 4.1 mmol/L (3.5-5.1)
[2019-11-28 06:44] LABS: Phosphorus 3.8 mg/dl (2.5-4.9)
[2019-11-28] MEDS: DOCUSATE SODIUM 100 MG CAP PO SCH ×3 (08:22→20:50)
[2019-11-28] MEDS: PANTOprazole 40 MG TAB PO SCH (08:23)
[2019-11-28] MEDS: POLYETHYLENE (MIRALAX) 17 GM PACK PO SCH ×2 (08:23→08:32)
[2019-11-28] MEDS: NICOTINE 7 MG/24 HR TDSY TD SCH (08:44)
--- NOTE | 2019-11-28 12:47 | Hospitalist Progress Note ---
Date of Service November 28, 2019 Assessment & Plan (1) Ileus: Patient reported no bowel movement for 5 days at time of admission. Problems with chronic constipation, followed by GI. Has been prescribed Motegrity and Linzess, but apparently not taken on a regular basis because of insurance coverage. Imaging by CT and KUB was consistent with ileus, no apparent obstruction. Laxative overuse and electrolyte abnormalities could be contributing factor. KUB on 11/21 slightly improved. Passing flatus, but no stool. Electrolytes now essentially normal. GI recommended GoLytely prep, but patient not able to tolerate it. Seen by General Surgery- surgical intervention not recommended. Has had a couple bowel of bowel movements. Try to advance diet. Prefers not to use MiraLax (causes abdominal pain). OK to continue [place]. Stopped Bentyl because of anti-motility effects. (2) Hyponatremia: Sodium 121 on day of admission. Sodium today = 137. Follow. (3) Hypokalemia: Potassium was 2.3 on day of admission. Received replacement. Potassium today = 4.1. Follow. (4) Hypomagnesemia: Mg as low as 1.7. Mg today 1.7. Start Mg oxide. (5) Urinary retention: Chronic urinary retention with Montes cath. Overdue for change- will ask nursing to change today. (6) Bacteriuria, asymptomatic: Urine culture grew Citrobacter braakii and Pseudomonas aeruginosa. No fever. Colonization / asymptomatic bacteruria secondary to Montes cath. Antibiotic therapy not indicated. (7) Paranoid schizophrenia: Seen by Psychiatry. Continue olanzapine. (8) DVT prophylaxis: SQ enoxaparin ordered, but patient refused. SCD's. Ambulate. (9) Discharge planning issues: Anticipated discharge to home. Family Medicine follow-up with Dr. Middleton. Admission and Anticipated Discharge Date Admission Date: November 20, 2019 Subjective Recheck for ileus and other problems. Patient seen in their room around 1050. Moved her bowels yesterday and today. Still afraid to eat. Has not had any significant solid food for some time (weeks?). Some nausea, no emesis. Intermittent severe crampy abdominal pain. Not ambulating much. Seen by General Surgery yesterday- surgical intervention not recommended. Review of Systems: Constitutional- no fever. Cardiac- no chest pain. Pulmonary- no cough or SOB. GI- as noted above. - chronic Montes cath (overdue for change) Otherwise, as noted above. Physical Exam Constitutional: no acute distress Respiratory: no respiratory distress Auscultation: lungs clear to auscultation bilaterally Cardiovascular: Rate/Rhythm: regular rate and regular rhythm Vessels: no JVD Extremities: no calf tenderness and no edema Gastrointestinal (Abdomen): Inspection/Auscultation: + abdomen distended (mild); + abnormal bowel sounds (high-pitched) Percussion/Palpation: abdomen soft; abdomen nontender Skin: no rashes, warm and dry Psychiatric: Orientation: alert and oriented x 3 Genitourinary: + bladder abnormal to inspection (Montes cath) Results & Data ([facility]) Vital Signs (Past 12 Hours) Vital Signs Temp Pulse Resp BP Pulse Ox 11/28/19 06:42 36.6 C 64 18 115/76 99 Laboratory Results Laboratory Results - last 24 hr 11/28/19 04:47 Sodium 137 Potassium 4.1 Chloride 106 Carbon Dioxide 28 Anion Gap 3.0 BUN 1 L Creatinine 0.43 L Est Cr Clr Drug Dosing 110.1 Est GFR ( Amer) 129.9 Est GFR (Non-Af Amer) 112.1 BUN/Creatinine Ratio 2.8 L Glucose 78 Calcium 8.8 Phosphorus 3.8 Magnesium 1.7 L
[2019-11-28] MEDS: MAGNESIUM OXIDE 400 MG TAB PO SCH ×2 (14:16→20:41)
[2019-11-28] MEDS: LAVAGE SOLUTION 4000ML PO SCH (16:04)
[2019-11-28] MEDS: OLANZapine 10 MG TAB PO SCH (20:42)
[2019-11-29] MEDS: PANTOprazole 40 MG TAB PO SCH (08:33)
[2019-11-29] MEDS: NICOTINE 7 MG/24 HR TDSY TD SCH (08:33)
[2019-11-29] MEDS: MAGNESIUM OXIDE 400 MG TAB PO SCH ×3 (08:33→20:43)
[2019-11-29] MEDS: POLYETHYLENE (MIRALAX) 17 GM PACK PO SCH (08:36)
[2019-11-29] MEDS: DOCUSATE SODIUM 100 MG CAP PO SCH ×2 (08:36→20:43)
[2019-11-29] MEDS ORDERED: bisacodyL 5 MG TABEC PO ONE (13:00)
--- NOTE | 2019-11-29 19:22 | Hospitalist Progress Note ---
Date of Service November 29, 2019 Assessment & Plan (1) Ileus: Patient reported no bowel movement for 5 days at time of admission. Problems with chronic constipation, followed by GI. Has been prescribed Motegrity and Linzess, but apparently not taken on a regular basis because of insurance coverage. Imaging by CT and KUB was consistent with ileus, no apparent obstruction. Laxative overuse and electrolyte abnormalities could be contributing factor. KUB on 11/21 slightly improved. Passing flatus, but no stool. Electrolytes now essentially normal. GI recommended GoLytely prep, but patient not able to tolerate it. Seen by General Surgery- surgical intervention not recommended. Has had a couple bowel of bowel movements. Try to advance diet. Prefers not to use MiraLax (causes abdominal pain). OK to continue Colace. Stopped Bentyl because of anti-motility effects. Continue to advance diet as tolerated. (2) Hyponatremia: Sodium 121 on day of admission. Sodium yesterday = 137. Follow. (3) Hypokalemia: Potassium was 2.3 on day of admission. Received replacement. Potassium yesterday = 4.1. Follow. (4) Hypomagnesemia: Mg as low as 1.7. Mg yesterday 1.7. Start Mg oxide. (5) Urinary retention: Chronic urinary retention with Montes cath. Montes cath changed 11/28/19. (6) Bacteriuria, asymptomatic: Urine culture grew Citrobacter braakii and Pseudomonas aeruginosa. No fever. Colonization / asymptomatic bacteruria secondary to Montes cath. Antibiotic therapy not indicated. (7) Paranoid schizophrenia: Seen by Psychiatry. Continue olanzapine. (8) DVT prophylaxis: SQ enoxaparin ordered, but patient refused. SCD's. Ambulate. (9) Discharge planning issues: Anticipated discharge to home. Family Medicine follow-up with Dr. Middleton. Admission and Anticipated Discharge Date Admission Date: November 20, 2019 Subjective Recheck for ileus and other problems. Patient seen in their room around 1130. Feels constipated (although she had 2 BMs yesterday). She was able to enjoy some scrambled eggs for breakfast. Still very concerned about inability to eat much and ongoing problems with constipation. Montes catheter changed yesterday. Review of Systems: Constitutional- no fever. Cardiac- no chest pain. Pulmonary- no cough or SOB. GI- as noted above. - chronic Montes cath Otherwise, as noted above. Physical Exam Constitutional: no acute distress Respiratory: no respiratory distress Auscultation: lungs clear to auscultation bilaterally Cardiovascular: Rate/Rhythm: regular rate and regular rhythm Vessels: no JVD Extremities: no calf tenderness and no edema Gastrointestinal (Abdomen): Inspection/Auscultation: + abdomen distended (mild) and normal bowel sounds Percussion/Palpation: abdomen soft; abdomen nontender Skin: no rashes, warm and dry Psychiatric: Orientation: alert and oriented x 3 Genitourinary: + bladder abnormal to inspection (Montes cath) Results & Data ([facility]) Vital Signs (Past 12 Hours) Vital Signs Temp Pulse Resp BP BP Pulse Ox 11/29/19 15:00 36.8 C 77 16 112/77 97 11/29/19 07:55 36.5 C 63 16 107/71 99
[2019-11-29] MEDS: OLANZapine 10 MG TAB PO SCH (20:41)
[2019-11-29] MEDS ORDERED: PANTOprazole 40 MG TAB PO STA (23:36)
[2019-11-30] MEDS: MAGNESIUM OXIDE 400 MG TAB PO SCH ×3 (08:24→20:04)
[2019-11-30] MEDS: PANTOprazole 40 MG TAB PO SCH (08:25)
[2019-11-30] MEDS: NICOTINE 7 MG/24 HR TDSY TD SCH (08:25)
[2019-11-30] MEDS: POLYETHYLENE (MIRALAX) 17 GM PACK PO SCH (08:29)
[2019-11-30] MEDS: DOCUSATE SODIUM 100 MG CAP PO SCH (08:29)
[2019-11-30] MEDS ORDERED: SOD PHOSPHATE/SOD BIPHOSPHATE ENEMA 132 ML BTL PR ONE (15:35)
[2019-11-30] MEDS ORDERED: bisacodyL 5 MG TABEC PO SCH (19:00)
[2019-11-30] MEDS: DOCUSATE SODIUM/SENNA 50/8.6MG TAB PO SCH (20:04)
[2019-11-30] MEDS: OLANZapine 10 MG TAB PO SCH (20:09)
--- NOTE | 2019-11-30 22:04 | Hospitalist Progress Note ---
Date of Service November 30, 2019 Assessment & Plan (1) Ileus: Patient reported no bowel movement for 5 days at time of admission. Problems with chronic constipation, followed by GI. Has been prescribed Motegrity and Linzess, but apparently not taken on a regular basis because of insurance coverage. Imaging by CT and KUB was consistent with ileus, no apparent obstruction. Laxative overuse and electrolyte abnormalities could be contributing factor. KUB on 11/21 slightly improved. Passing flatus, but no stool. Electrolytes now essentially normal. GI recommended GoLytely prep, but patient not able to tolerate it. Seen by General Surgery- surgical intervention not recommended. Has had a couple bowel of bowel movements. Try to advance diet. Prefers not to use MiraLax (causes abdominal pain). OK to continue Colace. Stopped Bentyl because of anti-motility effects. Continue to advance diet as tolerated. Try Fleet enema + PO Dulcolax today. (2) Hyponatremia: Sodium 121 on day of admission. Sodium 11/27 was 137. Follow. (3) Hypokalemia: Potassium was 2.3 on day of admission. Received replacement. Potassium 11/27 was 4.1. Follow. (4) Hypomagnesemia: Mg as low as 1.7. Mg 11/27 was 1.7. Mg oxide. (5) Urinary retention: Chronic urinary retention with Montes cath. Montes cath changed 11/28/19. (6) Bacteriuria, asymptomatic: Urine culture grew Citrobacter braakii and Pseudomonas aeruginosa. No fever. Colonization / asymptomatic bacteruria secondary to Montes cath. Antibiotic therapy not indicated. (7) Paranoid schizophrenia: Seen by Psychiatry. Continue olanzapine. (8) DVT prophylaxis: SQ enoxaparin ordered, but patient refused. SCD's. Ambulate. (9) Discharge planning issues: Anticipated discharge to home. Family Medicine follow-up with Dr. Middleton. Admission and Anticipated Discharge Date Admission Date: November 20, 2019 Subjective Recheck for ileus and other problems. Patient seen in their room around 1600. Eating some solids, but feels constipated and uncomfortable. Vomiting last night. Last BM's 2 days ago. Review of Systems: Constitutional- no fever. Cardiac- no chest pain. Pulmonary- no cough or SOB. GI- as noted above. - chronic Montes cath Otherwise, as noted above. Physical Exam Constitutional: no acute distress Respiratory: no respiratory distress Auscultation: lungs clear to auscultation bilaterally Cardiovascular: Rate/Rhythm: regular rate and regular rhythm Vessels: no JVD Extremities: no calf tenderness and no edema Gastrointestinal (Abdomen): Inspection/Auscultation: + abdomen distended (mild) and normal bowel sounds Percussion/Palpation: abdomen soft; abdomen nontender Skin: no rashes, warm and dry Psychiatric: Orientation: alert and oriented x 3 Genitourinary: + bladder abnormal to inspection (Montes cath) Results & Data ([facility]) Vital Signs (Past 12 Hours) Vital Signs Temp Pulse Resp BP Pulse Ox 11/30/19 14:42 36.3 C L 72 16 116/71 100
[2019-12-01 07:27] LABS: BUN Creatinine Ratio 20.8 (10-20); Calcium 9.5 mg/dl (8.5-10.1); Creatinine Clr Calc Pharmacy 87.7 ml/min; Est GFR (African American) 120.6; Magnesium 2.2 mg/dl (1.8-2.4); Potassium 4.3 mmol/L (3.5-5.1)
[2019-12-01] MEDS: NICOTINE 7 MG/24 HR TDSY TD SCH (08:01)
[2019-12-01] MEDS: POLYETHYLENE (MIRALAX) 17 GM PACK PO SCH (09:04)
[2019-12-01] MEDS: PANTOprazole 40 MG TAB PO SCH (09:04)
[2019-12-01] MEDS: DOCUSATE SODIUM/SENNA 50/8.6MG TAB PO SCH (09:04)
[2019-12-01] MEDS: MAGNESIUM OXIDE 400 MG TAB PO SCH (09:05)
--- NOTE | 2019-12-01 11:18 | Hospitalist Progress Note ---
Date of Service December 01, 2019 Assessment & Plan (1) Ileus: Patient reported no bowel movement for 5 days at time of admission. Problems with chronic constipation, followed by GI. Imaging by CT and KUB was consistent with ileus, no apparent obstruction. Laxative overuse and electrolyte abnormalities could be contributing factor. Electrolytes replaced and improvedl. GI recommended GoLytely prep, but patient not able to tolerate it. Seen by General Surgery- surgical intervention not recommended. Advanced diet as tolerated. Tolerating solids by discharge. Discharge on docusate sodium, MiraLax, Linzess. May use senna, but no more than 3 times a week. Outpatient follow-up with GI. (2) Hyponatremia: Sodium 121 on day of admission. Sodium day of discharge 134. Follow. (3) Hypokalemia: Potassium was 2.3 on day of admission. Received replacement. Potassium day of discharge 4.3 Follow. (4) Hypomagnesemia: Mg as low as 1.7. Mg day of discharge 2.2. Discharge on Mg oxide 400 TID. Follow. (5) Urinary retention: Chronic urinary retention with Montes cath. Montes cath changed 11/28/19. (6) Bacteriuria, asymptomatic: Urine culture grew Citrobacter braakii and Pseudomonas aeruginosa. No fever. Colonization / asymptomatic bacteruria secondary to Montes cath. Antibiotic therapy not indicated. (7) Paranoid schizophrenia: Seen by Psychiatry. Ordered olanzapine, but pt prefers not to take it or other anti-psychotics. She denied hallucinations. (8) DVT prophylaxis: SQ enoxaparin ordered, but patient refused. SCD's. Ambulate. (9) Discharge planning issues: Discharge to home. Family Medicine follow-up with Dr. Middleton. Follow-up with Ariana NEWTON. Admission and Anticipated Discharge Date Admission Date: November 20, 2019 Subjective Recheck for ileus and other problems. Patient seen in their room around 1100. Ongoing concerns about her bowel habits, but documented bowel movements daily for past few days. Ambulating. Physical Exam Constitutional: no acute distress Respiratory: no respiratory distress Auscultation: lungs clear to auscultation bilaterally Cardiovascular: Rate/Rhythm: regular rate and regular rhythm Vessels: no JVD Extremities: no calf tenderness and no edema Gastrointestinal (Abdomen): Inspection/Auscultation: + abdomen distended (mild) and normal bowel sounds Percussion/Palpation: abdomen soft; abdomen nontender Skin: no rashes, warm and dry Psychiatric: Orientation: alert and oriented x 3 Genitourinary: + bladder abnormal to inspection (Montes cath) Results & Data ([facility]) Vital Signs (Past 12 Hours) Vital Signs Temp Pulse Resp BP Pulse Ox 12/01/19 07:32 36.9 C 69 18 100/69 98 Laboratory Results Laboratory Results - last 24 hr 12/01/19 06:38 Sodium 134 L Potassium 4.3 Chloride 102 Carbon Dioxide 28 Anion Gap 4.0 BUN 11 Creatinine 0.54 L Est Cr Clr Drug Dosing 87.7 Est GFR ( Amer) 120.6 Est GFR (Non-Af Amer) 104.0 BUN/Creatinine Ratio 20.8 H Glucose 98 Calcium 9.5 Magnesium 2.2
--- NOTE | 2019-12-02 04:34 | Discharge Summary ---
Date of Service Date of Admission: 11/20/19 Date of Discharge: 12/01/19 Admission HPI Per Admitting Provider 59-year-old female who presents the ED for evaluation of constipation. Patient with a longstanding history of chronic constipation. Follows closely with Ariana NEWTON. Was seen in the ED on 11/05/2019 for complaints of constipation. It was noted the patient was abusing laxatives at that time. She was instructed to stop all laxatives. Patient reports that she feels as though her psychiatric medications, Risperdal and Geodon, are contributing to her constipation therefore she self stopped his medications about 1 month ago. Patient reports she has not had a bowel movement the past 5 days. She reports she has been using enemas without any relief. She has been prescribed Motegrity in the past however there have been issues with insurance coverage. She has not been taking it routinely however did take a dose this morning of pill she had leftover. She reports she has had nausea and several episodes of vomiting. She denies hematemesis or coffee-ground emesis. Does not seem to be having much abdominal pain. Denies fevers and chills. No chest pain or shortness of breath. Denies lightheadedness, dizziness, diaphoresis, syncopal events. She has a chronic F oley catheter in place which is been draining without any problem. Since patient has been off of her psychiatric medications, she denies any visual or auditory hallucinations. She denies any active suicidal or homicidal thoughts however does report she is "fed up "with her medical problems. In the ED, sodium level is 121, potassium 2.3. Patient was given 1 L NSS and 2 K+ riders. Principal Diagnosis ileus OTHER ACUTE / NEW DIAGNOSES hyponatremia hypokalemia hypomagnesemia Discharge Data Allergies Allergy/AdvReac Type Severity Reaction Status Date / Time oxybutynin Allergy Unknown Unknown Verified 11/20/19 16:16 povidone-iodine Allergy Unknown Rash Verified 11/20/19 16:16 [From Betadine] soap [From Betadine] Allergy Unknown Rash Verified 11/20/19 16:16 Consultations 11/20/19 17:45 ED Decision to Admit Stat 11/20/19 21:15 Consult Case Management - Discharge Planning Routine Consult Psychiatry Routine 11/21/19 09:20 Consult Gastroenterology Routine 11/21/19 09:33 Consult Nephrology Routine 11/27/19 11:06 Consult General Surgery Routine Ordered Studies 11/20/19 17:45 CT abd pelvis wo con Stat Hospital Course (1) Ileus: Patient reported no bowel movement for 5 days at time of admission. Problems with chronic constipation, followed by GI. Imaging by CT and KUB was consistent with ileus, no apparent obstruction. Laxative overuse and electrolyte abnormalities could be contributing factor. Electrolytes replaced and improved. GI recommended GoLytely prep, but patient not able to tolerate it. Seen by General Surgery- surgical intervention not recommended. Advanced diet as tolerated. Tolerating solids by discharge. Discharge on docusate sodium, MiraLax, Linzess. May use senna, but no more than 3 times a week. Outpatient follow-up with GI. (2) Hyponatremia: Sodium 121 on day of admission. Sodium day of discharge 134. Follow. (3) Hypokalemia: Potassium was 2.3 on day of admission. Received replacement. Potassium day of discharge 4.3 Follow. (4) Hypomagnesemia: Mg as low as 1.7. Mg day of discharge 2.2. Discharge on Mg oxide 400 TID. Follow. (5) Urinary retention: Chronic urinary retention with Montes cath. Followed by Urology. Montes cath changed 11/28/19. (6) Bacteriuria, asymptomatic: Urine culture grew Citrobacter braakii and Pseudomonas aeruginosa. No fever. Colonization / asymptomatic bacteruria secondary to Montes cath. Antibiotic therapy not indicated. (7) Paranoid schizophrenia: Seen by Psychiatry. Ordered olanzapine, but pt prefers not to take it or other anti-psychotics. She denied hallucinations. (8) DVT prophylaxis: SQ enoxaparin ordered, but patient refused. SCD's. Ambulate. (9) Discharge planning issues: Discharged to home. Family Medicine follow-up with Dr. Middleton. Follow-up with Ariana NEWTON. Total Time Total Time Spent Total Time Spent (In Minutes): 35 Discharge Plan Discharge Items Patient Disposition: Home - Home Health Services Reason For Visit: constipation Discharge Diagnosis: constipation low sodium level low potassium level low magnesium level Activity: Resume your previous activity Non-emergency contact: Primary Care Provider, Hospitalist and Vest Finisher Call non-emergency contact if: you have any medication questions, your symptoms worsen and your temperature is above 101 Follow-up/Referrals: Nathan Middleton MD [Primary Care Provider] - 12/03/19 11:20 am (12/03/2019 11:20 AM with Nathan Middleton MD [facility] ) Diet: Regular and Lactose Intolerant Addtl Attending Provider Instructions: MEDICATION CHANGES: magnesium oxide 400 mg 3 times a day SUMMARY OF TEST RESULTS: CT scan and x-rays did not show any blockage of intestine. RECOMMENDATIONS FOR FOLLOW-UP: Please have Dr. Middleton check lab tests (basic metabolic profile and magnesium). Please ask Dr. Middleton for follow-up referral to Gastroenterology. OTHER INSTRUCTIONS: Seek medical attention if you have: * temperature above 101 * chest pain or trouble breathing * abdominal pain, nausea, vomiting * diarrhea, dark stools or bloody stools * any unanswered questions or concerns Call [phone] if symptoms are severe. Please take good care of yourself. Call if you have any questions or problems. You can reach a [facility] hospitalist on duty at [facility] 24 hours a day by calling [phone]. Pending Studies at Discharge: No Stand-Alone Forms: [facility], Smoking Cessation Medications and DC Order Prescriptions: New magnesium oxide 400 mg (241.3 mg magnesium) Tablet 400 mg PO TID Qty: 90 RF: 5 Continued esomeprazole magnesium [Nexium] 20 mg Capsule,Delayed Release(Dr/Ec) 20 mg PO QAM RF: 0 magnesium hydroxide [Milk of Magnesia] 400 mg/5 mL Suspension 15 ml PO DAILY PRN (Reason: Constipation) RF: 0 potassium chloride 20 mEq tablet extended release 20 meq PO QAM PRN (Reason: Vomiting) RF: 0 docusate sodium 100 mg Capsule 100 mg PO BID RF: 0 Linzess 290 mcg capsule 290 mcg PO DAILY RF: 0 sennosides [Senna Laxative] 8.6 mg Tablet 8.6 mg PO 3XWK PRN (Reason: Constipation) RF: 0 polyethylene glycol 3350 [Miralax] 17 gram/dose Powder 17 g PO DAILY RF: 0 ondansetron 4 mg tablet,disintegrating 4 mg PO Q8H PRN (Reason: Nausea) RF: 0 Discharge Orders: Discharge Order (Routine); Ordered 12/01/19 Ordered By: Mello Inman/Other Patient Handouts: High Fiber Diet Admission Data Admit Date/Time: 11/20/19 18:16 Attending Provider: Mello Mosqueda Admit Provider: Raúl Montes Primary Care Provider: Nathan Middleton Other Providers: [facility] ; Raúl Montes ; Kd Reevse I. ; Ambrocio Robles ; Kirsten Miner ; Arnulfo Hodge Other Interventions: Discharge Summary Assessment (RN) Last Done: 12/01/19 11:37 DC Date/Time DO NOT enter until pt leaves facility: 12/01/19 14:05
== END 2019-12-01 14:05 | disposition home health service (06) | DRG 389 ==
LOC: ED 15:06 → SUATTDRO 18:16 → 2W 18:16 → 3N 11-27 20:44